=== PATIENT | male | born 1960 | race African-American/Black ===

== ENCOUNTER 2024-08-20 16:09 | Inpatient (IN) | payer OTHER, SELFPAY ==
--- NOTE | ~2024-08-20 | XR_ITS ---
EXAMINATION: XR CHEST CLINICAL INFORMATION: cough COMPARISON: None available. TECHNIQUE: Frontal view of the chest was obtained. FINDINGS: Rotated positioning. Overlying cardiac leads. Cardiomediastinal silhouette is within normal limits, allowing for positioning/technique. Mild bronchial wall thickening. No focal consolidation, effusion, edema or pneumothorax. XR/XR chest 1V IMPRESSION: Bronchial wall thickening can be seen with small airway disease. Electronically signed by: Corona Ruvalcaba MD 08/20/2024 06:20 PM [facility]
--- NOTE | ~2024-08-20 | CT_ITS ---
EXAMINATION: CT HEAD WITHOUT CONTRAST CLINICAL INFORMATION: Acute mental status change COMPARISON: 08/20/2024 TECHNIQUE: Contiguous axial imaging was performed from the skull base to vertex without intravenous administration of contrast. This CT examination was performed using dose optimization techniques as appropriate, variously including the following: *Automated exposure control *Adjustment of mA and/or kV according to patient size (this includes techniques or standardized protocols for targeted exams where dose is matched to indication/reason for exam; i.e. extremities or head) *Use of iterative reconstruction technique DLP: 772 mGy-cm FINDINGS: No acute intracranial abnormality. Age-appropriate cortical and central atrophy. Symmetrical white matter changes most consistent with terminal supply white matter chronic lacunar ischemic/infarct involving the hampton radiata and centrum semiovale. In addition, there is involvement of the striatocapsular regions consistent with involvement of the lenticular striate arteries as well. No extra axial collections. Small retention cyst right maxillary sinus. No calvarial lesion. CT/CT head/brain wo IV con IMPRESSION: No acute intracranial pathology. Electronically signed by: Shivam Null MD 08/23/2024 06:40 PM [facility]
--- NOTE | ~2024-08-20 | IR_ITS ---
GJ tube declog CLINICAL HISTORY: Feeding intolerance. GJ tube last replaced 2 weeks ago reportedly clogged FLUOROSCOPY TIME: 1 min PROCEDURE/FINDINGS: The procedure, risks, benefits, and alternatives were carefully explained to patient, and written informed consent was obtained. The patient was placed supine on the fluoroscopy table. A timeout was performed. A 0.035 Glidewire was negotiated through the existing GJ tube and used to declog the tube. We then flushed the jejunal port extensively with saline. Contrast injection demonstrates satisfactory declogging of the tube. We flushed again with saline. We elected to not replace the GJ tube as the tube was replaced 2 weeks ago and is now declogged. This is also taking into consideration that the GJ tube that we have in stock has a different type of connection and this may present a problem for tube feeds at facility IR/IR replace tube gastr jejun IMPRESSION: Successful declogging of GJ tube as above PLAN: -The tube may be used immediately. Electronically signed by: Marc Raman MD 08/28/2024 02:15 PM [facility]
--- NOTE | ~2024-08-20 | XR_ITS ---
EXAMINATION: XR CHEST CLINICAL INFORMATION: possible aspiration COMPARISON: August 23, 2024 TECHNIQUE: Frontal view of the chest was obtained. FINDINGS: The cardiomediastinal silhouette is stable. Minimal lingular atelectasis and/or scarring is again seen. There also appears to be minimal scarring or atelectasis at the right lung base. The lungs are otherwise clear. There are no significant pleural effusions. The bony structures and the soft tissues are unremarkable. XR/XR chest 1V IMPRESSION: Minimal lingular atelectasis and/or scarring and minimal scarring or atelectasis at the right lung base. No other significant abnormality seen. Electronically signed by: Yoni Ken MD 08/24/2024 06:08 AM [facility]
--- NOTE | ~2024-08-20 | XR_ITS ---
EXAMINATION: XR CHEST CLINICAL INFORMATION: suspect aspiration COMPARISON: 08/20/2024 TECHNIQUE: Frontal view of the chest was obtained. FINDINGS: No significant abnormality is noted involving the heart, lungs, mediastinum, bony thorax or soft tissues. XR/XR chest 1V IMPRESSION: Unremarkable examination. Electronically signed by: Cassidy Gallardo MD 08/23/2024 06:21 PM [facility]
--- NOTE | ~2024-08-20 | CT_ITS ---
EXAMINATION: CT HEAD WITHOUT CONTRAST CLINICAL INFORMATION: Headache. Dizziness. Patient on liquids. COMPARISON: None available. TECHNIQUE: Contiguous axial imaging was performed from the skull base to vertex without intravenous administration of contrast. This CT examination was performed using dose optimization techniques as appropriate, variously including the following: *Automated exposure control. *Adjustment of mA and/or kV according to patient size (this includes techniques or standardized protocols for targeted exams where dose is matched to indication/reason for exam; i.e. extremities or head). *Use of iterative reconstruction technique. DLP: 931 mGy-cm FINDINGS: Chronic lacunar infarcts of the right caudate body, right internal capsule, right thalamus, and left central jens. No additional loss of donaldson-white matter differentiation. No evidence of acute intracranial hemorrhage. Scattered and partially confluent hypoattenuation in the periventricular and deep white matter are consistent with moderate microangiopathy. Proportional prominence of the ventricles and sulcal spaces without evidence of obstructive hydrocephalus. No abnormal mass effect or midline shift. No extra-axial fluid collections. No acute soft tissue or osseous abnormalities. The mastoid air cells and visualized paranasal sinuses are clear. CT/CT head/brain wo IV con IMPRESSION: 1. No evidence of acute intracranial hemorrhage or edematous territorial infarction. 2. Chronic lacunar infarcts of the right caudate body, right internal capsule, right thalamus, and left central jens. Moderate underlying microangiopathy and generalized cerebral volume loss. Electronically signed by: Alexx Shaw DO 08/20/2024 06:59 PM [facility]
--- NOTE | ~2024-08-20 | CT_ITS ---
EXAMINATION: CT ABDOMEN AND PELVIS WITHOUT CONTRAST CLINICAL INFORMATION: Abdominal distention with nausea and vomiting COMPARISON: None available. TECHNIQUE: Multidetector volumetric imaging was performed from the superior aspect of the liver through the pubic symphysis. Sagittal and coronal reformatted images were obtained on the technologist's workstation. This CT examination was performed using dose optimization techniques as appropriate, variously including the following: *Automated exposure control *Adjustment of mA and/or kV according to patient size (this includes techniques or standardized protocols for targeted exams where dose is matched to indication/reason for exam; i.e. extremities or head) *Use of iterative reconstruction technique DLP: 897 mGy-cm FINDINGS: LUNG BASES: Bibasilar atelectasis is present with some tree-in-bud opacities at both lung bases. No pleural effusions or gross consolidation. LIVER, GALLBLADDER, AND BILIARY TREE: Extensive surgical clips are present around the kody hepatis. The gallbladder is not present. The liver is normal in size, shape, and attenuation. No focal hepatic lesion or biliary ductal dilatation is present. PANCREAS: Unremarkable. SPLEEN: Unremarkable. ADRENAL GLANDS: Unremarkable. KIDNEYS AND URETERS: The [place] kidneys are small. A transplant kidney is present in the right iliac fossa. BLADDER: There is lobular high density material layering in the bladder, possibly sludge or blood clot as it does not appear that contrast has been administered in the recent past. The possibility of a mass lesion needs to be considered as well GASTROINTESTINAL TRACT: A gastrojejunostomy tube is present in good position with its tip in the proximal jejunum. A large amount of stool is present in the rectum with thin cuts contrast in the left colon. There are colonic diverticula present without diverticulitis. The small and large bowel are otherwise unremarkable. The appendix is unremarkable. ABDOMINAL WALL: No significant hernia is appreciated. LYMPH NODES: No retroperitoneal lymphadenopathy. VASCULAR: Calcific atherosclerotic changes are present in the aorta and iliofemoral vessels. There is no evidence of an abdominal aortic aneurysm. PELVIC VISCERA: Unremarkable. OSSEOUS STRUCTURES: Degenerative changes are present in the spine most marked at L4-L5. CT/CT abdomen pelvis wo IV con IMPRESSION: 1. A cause for the patient's abdominal distention, nausea and vomiting has not been found. 2. Abnormal higher density in the posterior bladder. Correlate with urinalysis for possible hematuria. Cystoscopy may be necessary to exclude a mass 3. Incidental note made of bibasilar atelectasis with tree-in-bud opacities, cholecystectomy, gastrojejunostomy tube, transplant kidney, colonic diverticulosis and degenerative changes in the spine. Fleischner guidelines were followed. Electronically signed by: Julian Alvarez MD 08/20/2024 08:18 PM [facility]
--- NOTE | ~2024-08-20 | CT_ITS ---
EXAMINATION: CT ABDOMEN AND PELVIS WITHOUT AND WITH CONTRAST CLINICAL INFORMATION: Upper GI bleed COMPARISON: CT abdomen from 08/20/ TECHNIQUE: Multidetector volumetric imaging was performed of the abdomen and pelvis before and after the IV administration of 80 mL of Omnipaque 300 intravenous contrast. Sagittal and coronal reformatted images were obtained on the technologist's workstation. This CT examination was performed using dose optimization techniques as appropriate, variously including the following: *Automated exposure control *Adjustment of mA and/or kV according to patient size (this includes techniques or standardized protocols for targeted exams where dose is matched to indication/reason for exam; i.e. extremities or head) *Use of iterative reconstruction technique DLP: 2104 mGy-cm FINDINGS: LUNG BASES: Bibasilar atelectasis, left greater than. No pneumothorax. No lesion. LIVER, GALLBLADDER, AND BILIARY TREE: The liver is normal in size, shape, and attenuation. No focal hepatic lesion or biliary ductal dilatation is present. The gallbladder appears surgically absent. PANCREAS: Unremarkable surgical material in the region of the head of the pancreas SPLEEN: Unremarkable ADRENAL GLANDS: Unremarkable KIDNEYS AND URETERS: Bilateral cher-ae heights kidneys are atrophied. Right lower abdomen/pelvis renal transplant, stable. BLADDER: Redemonstrated high-density material within the dependent aspect of intraluminal urinary bladder, nonspecific. GASTROINTESTINAL TRACT: Percutaneous gastrojejunostomy tube redemonstrated. Residual oral contrast noted throughout the colon and in particular the rectum. Colonic diverticulosis without acute diverticulitis. The small and large bowel are unremarkable. The appendix is unremarkable. ABDOMINAL WALL: Fat filled bilateral inguinal hernias. LYMPH NODES: No enlarged lymph nodes or size criteria. VASCULAR: Evaluation for gastrointestinal hemorrhage is limited secondary to residual oral contrast no definite contrast extravasation identified. Patency of the celiac artery, superior mesenteric artery, and inferior mesenteric artery. Patency of the bilateral renal arteries. Patency of the bilateral common, external, and internal iliac arteries. Patency of the bilateral common femoral arteries. Abdominal aorta is nonaneurysmal. PELVIC VISCERA: Unremarkable OSSEOUS STRUCTURES: Multilevel degenerative changes of the thoracolumbar and lumbosacral spine. CT/CT gi bleed abd pel wo/w IVcon IMPRESSION: 1. Evaluation for gastrointestinal hemorrhage is limited secondary to residual oral contrast. No definite contrast extravasation identified. 2. Residual oral contrast noted throughout the colon and in particular the rectum. Colonic diverticulosis without acute diverticulitis. 3. Percutaneous gastrojejunostomy tube redemonstrated. 4. Bilateral cher-ae heights kidneys are atrophied. Right lower abdomen/pelvis renal transplant, stable. 5. Redemonstrated high-density material within the dependent aspect of intraluminal urinary bladder, nonspecific. Electronically signed by: Bhavesh De Leon MD 08/24/2024 10:40 AM [facility]
--- NOTE | ~2024-08-20 | XR_ITS ---
EXAMINATION: XR ABDOMEN KUB CLINICAL INDICATION: malfunctioning g/j tube COMPARISON: None available. TECHNIQUE: AP view of the abdomen. FINDINGS: Gravid was injected through the G J-tube. There is contrast visualized in the duodenum as well as the distal G-tube. Most of the contrast is in the stomach. Obstruction of the G-tube suspected. The GJ tube position is stable and unchanged XR/XR KUB IMPRESSION: The GJ tube is patent. Most of the contrast is visualized in the stomach and the duodenum and very little contrast in the jejunum. The distal GJ tube is patent however there is very little contrast in the jejunum questioning partial obstruction versus injection within the gastrostomy segment of the GJ tube. Correlate with person who injected contrast. Electronically signed by: Naun Laguerre MD 09/02/2024 02:30 PM [facility]
[2024-08-20 16:27] VITALS: BP 110/61; BP 124/74; PULSE 84; RESP 18; TEMP 36.8; O2SAT 98; O2SAT 99; BMI 25.1
--- NOTE | 2024-08-20 16:46 | ECG_ITS ---
Test Reason : CHEST PAIN Blood Pressure : / mmHG Vent. Rate : 075 BPM Atrial Rate : 075 BPM P-R Int : 120 ms QRS Dur : 118 ms QT Int : 418 ms P-R-T Axes : 058 -48 015 degrees QTc Int : 466 ms Sinus rhythm with Premature atrial complexes Incomplete right bundle branch block Left anterior fascicular block Minimal voltage criteria for LVH, may be normal variant ( R in aVL ) Abnormal ECG No previous ECGs available Referred By: Maya Cooper Electronically Signed By:ALEKSANDR BALLARD
--- NOTE | 2024-08-20 16:48 | ED_ITS ---
HPI - Dizziness General Chief Complaint: Dizziness Stated Complaint: SOB DIZZINESS Time Seen by Provider: 08/20/24 16:15 Source: patient, EMS and old records reviewed Mode of arrival: EMS Limitations: no limitations History of Present Illness ED Provider: SADIQ OLIVERA Narrative: 63 yo male with PMH Of CVA with L sided hemiparesis/dysphagia, PVD, GERD, pneumonia, DM, PAF on eliquis who comes in today with multiple complaits 1. dizziness for several months he states he just feels dizzy no matter what he is doing laying, moving, eating, drinking. He denies trauma and states today he came because it was worse than usual and he felt like he was going to pass out. 2. chest pain for a long time center of the chest without any associated change in symptoms states it is always there. 3. Today had n/v and his dizziness keeps making him short of breath. He denies anything stuck in his throat. I asked him if he felt like he was going to vomit again and he said maybe later. He denies abdominal pain /diarrhea. He has a very flat affect family states [facility] did not set up transport for his study today and he missed it. they want him placed somewhere else. recent admit to [facility] until 08/16/24 when family appealed DC to [facility] admit for COVID intractable n/v ?erosive esophagitis, gastritis, diabetic gastroparesis coffee ground emesis CAP pneumonia received 5 days of IV ceftriaxone and doxy has GI study today emptying study 08/20 diet and pills were encouraged to change vent G tube elicited complaint: dizziness Onset (ago): month(s) (several) Timing: gradual onset and constant Severity: moderate Description: sense of movement Context: other (it is there all the time) History of similar symptoms: Yes Exacerbating factors: movement/ambulation, change in body position, exertion, keeping eyes open, keeping eyes closed, standing, position/lying down and other Relieving factors: nothing Associated symptoms: nausea, vomiting, chest pain and shortness of breath Related Data Allergies Allergy/AdvReac Type Severity Reaction Status Date / Time desipramine Allergy Unknown Verified 08/20/24 16:32 Review of Systems 2 Review of Systems: Constitutional : No Fever, No Chills, No Fatigue ENT/Mouth : No sore throat, No Rhinorrhea Eyes: No Eye Pain, No Swelling, No Redness Cardiovascular : pos Chest Pain, pos SOB, No Dyspnea on Exertion Respiratory : No Cough, No Sputum Gastrointestinal :pos Nausea, pos Vomiting, No Diarrhea, No abdominal Pain Genitourinary : No Dysuria, No Urinary Frequency, No Hematuria, Musculoskeletal : No joint pain, No Myalgias, No Joint Swelling Skin : No Skin Lesions, No rash Neuro : No Weakness, No Numbness, pos Dizziness, no Headache Psych : No Anxiety/Panic, No Depression All other systems reviewed and are negative [facility] Past Medical History Source: old records reviewed Medical History Afib HTN (hypertension) GERD (gastroesophageal reflux disease) CVA (cerebral vascular accident) Diabetes Social History Social History Patient Tobacco Use Status: Tobacco use Unknown Smoked in Last 30 Days: No Use of substances other than those prescribed or required for medical reasons: No Advance Directives: No Advance Directives Information Provided: Yes Physical Exam 2 Vital Signs: Vital Signs: Last Vital Signs Temp 97.7 F 08/20/24 20:04 Pulse 76 08/20/24 20:04 Resp 14 08/20/24 20:04 BP 124/42 L 08/20/24 20:04 Pulse Ox 96 08/20/24 20:04 O2 Del Method Room Air 08/20/24 20:04 BMI result Body Mass Index 25.1 Appearance: Alert. Oriented X3. No acute distress. Eyes: Pupils equal, round and reactive to light. ENT: Pharynx normal. Neck: Normal inspection. Neck supple. CVS: Normal heart rate and rhythm. Pulses normal. Respiratory: No respiratory distress. Breath sounds bases diminished Abdomen: Soft and nontender. states he has no pain to palpation Skin: Skin warm and dry. Normal skin color. Normal skin turgor. Extremities: No lower extremity edema. shiny skin on both anterior legs no signs of infection Neuro: Oriented X 3. L sided hemiparesis keeps clearing his throat but no diff swallowing and no change in voice, no stridor Course Course Course Narrative: residual PCR from recent COVID - asymptomatic Medications Administered Discontinued Medications Generic Name Dose Route Start Last Admin Trade Name Freq PRN Reason Stop Dose Admin Ondansetron HCl 4 mg 08/20/24 16:43 08/20/24 18:19 Ondansetron Hcl 4 Mg/2 Ml Vial IVPUSH 08/20/24 16:44 4 mg ONCE ONE Administration Medical Decision Making Medical Decision Making [facility] Narrative: 63 yo male with PMH Of CVA with L sided hemiparesis/dysphagia, PVD, GERD, pneumonia, DM, PAF on eliquis who comes in with prolonged symptoms of dizziness, chest pain, today coughed or vomited but does not have abdominal pain at this time basic labs, EKG, CXR, CT head for mass/ICH, CT abdomen for bowel obstruction. He has no new focal deficits. He denies abdominal pain. He has chronic chest pain that he relates is there all the time seems unusual for ACS and VTE given his DOAC use but also the constant pain x several months. Will get troponin and CXR. Differential Diagnosis Differential Diagnoses: The differential diagnosis associated with the presentation includes post prior CVA, vertigio, meniere's, labyrinthitis, anemia, dehydration, atypical chest pain given months, GERD, doubt VTE uses eliquis, gastritis, SBO Admission/Observation Consideration of admission/observation: Escalation of care including admission/observation considered labs at recent baseline CT head CT abdomen his complaints seem termite treater helper and family wants other placement from [facility] physician observation started at 825pm pending placement Consult Healthcare Provider Management of the patient was discussed with: Social Human Services Assistants Lab Data [facility] Lab Attestation statement: I reviewed the patient's lab results. hemoglobin 9.6 at [facility] 08/20/24 18:15 08/20/24 18:14 Labs: Lab Results 08/20/24 08/20/24 Range/Units 18:14 18:15 WBC 6.4 (4.8-10.8) X10*3/uL RBC 3.86 L (4.60-5.80) X10*6/uL Hgb 9.2 L (14.0-18.0) g/dl Hct 29.8 L (42.0-52.0) % MCV 77.2 L (80.0-98.0) fL MCH 23.8 L (27.0-33.0) pg MCHC 30.9 L (31.0-36.0) g/dl RDW 15.8 (11.0-16.0) % Plt Count 292 (160-400) X10*3/uL MPV 10.4 (9.4-12.4) fL Immature Gran % (Auto) 0.2 (0.0-0.4) % Neut % (Auto) 47.4 (45-73) % Lymph % (Auto) 36.9 (20-40) % Cuming % (Auto) 8.6 (2-11) % Eos % (Auto) 6.4 H (0-4) % Baso % (Auto) 0.5 (0-2) % Lymph # (Auto) 2.4 (1.2-4.9) X10*3/uL Cuming # (Auto) 0.6 (0.1-1.2) X10*3/uL Eos # (Auto) 0.4 (0.0-0.4) X10*3/uL Baso # (Auto) 0.0 (0.0-0.2) X10*3/uL Abs Immat Gran (auto) 0.01 (0.00-0.03) X10*3/uL Absolute Neuts (auto) 3.0 (2.0-8.3) x10*3/uL Absolute Nucleated RBC 0.000 (0.0-0.012) X10*3/uL Nucleated RBC % (auto) 0.0 (0.0-0.2) /100WBC PT 14.9 H (10.9-12.4) SEC INR 1.3 H (0.9-1.1) Sodium 133 L (135-145) mmol/L Potassium 4.3 (3.3-5.1) mmol/L Chloride 102 (96-108) mmol/L Carbon Dioxide 28 (22-29) mmol/L Anion Gap 7 L (12-20) BUN 11 (9-16) mg/dL Creatinine 1.00 (0.5-1.4) mg/dL Estim Creat Clear Calc 79.4 Estimated GFR > 60 Random Glucose 237 H (60-115) mg/dL Calcium 9.1 (8.4-10.2) mg/dL Magnesium 1.6 (1.6-2.6) mg/dL Total Bilirubin 0.3 (0.0-1.0) mg/dL Direct Bilirubin 0.2 (0.0-0.5) mg/dL AST 121 H (5-37) U/L ALT 100 H (0-40) U/L Alkaline Phosphatase 188 H (39-117) U/L Troponin I High Sens 3.9 (<3.5-35.0) ng/L C-Reactive Protein 0.31 (< or = 0.50) mg/dL B-Natriuretic Peptide 47 (<100) pg/mL Total Protein 8.1 H (6.5-8.0) g/dL Albumin 3.2 L (3.5-5.0) g/dL Lipase 28 (8-78) U/L Influenza Type A (PCR) NEGATIVE (Negative) Influenza Type B (PCR) NEGATIVE (Negative) RSV RNA Qual (PCR) NEGATIVE (Negative) SARS-CoV-2 RNA (RT-PCR) POSITIVE A (Negative) Independent Interpretation I performed an independent interpretation of an: EKG, Plain X-Ray (no acute cause) and CT Scan (no acute cause) Interpretation: Rate: 75 Rhythm: NSR Jbphh: left Normal P waves. Normal AVEL. incomplete RBBB ST T wave : no LUC, inverted t waves V1 qTC: 466 prior studies: no prior The study has been interpreted contemporaneously by me. . Radiology Impression Discussion of test interpretation with radiology: I have reviewed the radiologist's reading. Independent Historian Clinical information obtained from an independent historian. History obtained from or confirmed by: EMS External Record Review External record reviewed: Outpatient record Discharge Plan Discharge Clinical Impression: Dizziness, Nausea Patient Disposition: Still a Patient Print Language: Kiswahili
[2024-08-20] MEDS: ondansetron HCL 4 MG/2 ML VIAL IVPUSH (18:19)
[2024-08-20 18:23] LABS: MANUAL DIFF FLAG NO
[2024-08-20 18:26] LABS: Basophils Percent Auto 0.5 % (0-2); Eosinophils Absolute Auto 0.4 X10*3/uL (0.0-0.4); Eosinophils Percent Auto 6.4 % (0-4); Hematocrit 29.8 % (42.0-52.0); Hemoglobin 9.2 g/dl (14.0-18.0); Imm Gran Abs Auto 0.01 X10*3/uL (0.00-0.03); Imm Gran Pct Auto 0.2 % (0.0-0.4); Lymphocytes Absolute Auto 2.4 X10*3/uL (1.2-4.9); Lymphocytes Percent Auto 36.9 % (20-40); Mean Corpuscular HGB Conc 30.9 g/dl (31.0-36.0); Mean Corpuscular Hemoglobin 23.8 pg (27.0-33.0); Mean Corpuscular Volume 77.2 fL (80.0-98.0); Mean Platelet Volume 10.4 fL (9.4-12.4); Monocytes Absolute Auto 0.6 X10*3/uL (0.1-1.2); Monocytes Percent Auto 8.6 % (2-11); Neutrophils Percent Auto 47.4 % (45-73); Platelet Count 292 X10*3/uL (160-400); Red Blood Count 3.86 X10*6/uL (4.60-5.80); Red Cell Distribution Width 15.8 % (11.0-16.0); White Blood Count 6.4 X10*3/uL (4.8-10.8)
[2024-08-20 18:27] VITALS: BP 122/62; PULSE 81; RESP 16; TEMP 36.4; O2SAT 98
[2024-08-20 18:34] LABS: INTERNATIONAL NORM RATIO 1.3 (0.9-1.1); Prothrombin Time 14.9 SEC (10.9-12.4)
[2024-08-20 18:44] LABS: Alanine Aminotransferase 100 U/L (0-40); Albumin Level 3.2 g/dL (3.5-5.0); Alkaline Phosphatase 188 U/L (39-117); Anion Gap 7 (12-20); Aspartate Amino Transferase 121 U/L (5-37); Bilirubin Direct 0.2 mg/dL (0.0-0.5); Bilirubin Total 0.3 mg/dL (0.0-1.0); Blood Urea Nitrogen 11 mg/dL (9-16); C Reactive Protein 0.31 mg/dL (< or = 0.50); Calcium 9.1 mg/dL (8.4-10.2); Carbon Dioxide 28 mmol/L (22-29); Chloride 102 mmol/L (96-108); Creatinine Clr Calc Pharmacy 79.4; Estimated Glomerular Filt Rate > 60; Glucose Random 237 mg/dL (60-115); Lipase 28 U/L (8-78); Magnesium 1.6 mg/dL (1.6-2.6); Potassium 4.3 mmol/L (3.3-5.1); Sodium 133 mmol/L (135-145); Total Protein 8.1 g/dL (6.5-8.0)
[2024-08-20 18:50] LABS: B Type Natriuretic Peptide 47 pg/mL (<100)
[2024-08-20 18:52] LABS: Troponin-I High Sensitivity 3.9 ng/L (<3.5-35.0)
[2024-08-20 19:01] LABS: Influenza A PCR NEGATIVE (Negative); Influenza B PCR NEGATIVE (Negative); Resp Syncy Virus RNA Qual PCR NEGATIVE (Negative); SARS COV2 PCR INHOUSE POSITIVE (Negative)
--- NOTE | 2024-08-20 19:57 | PC.NURSE ---
pt alert and orientedx4, though is not a great historian of his care. He had a stroke in April (info provided by his sister) and has left sided paralysis. He has a g tube. H says that for several months now he has ongoing nausea, vomiting, chest pain and dizziness and nothing has helped. in ED IV established via US (difficult stick). IV zofran given. Pt has multiple tiny scratches and scabs on his back, shoulders, legs and arms. He says they are from scratching.
[2024-08-20 20:04] VITALS: BP 124/42; PULSE 76; RESP 14; TEMP 36.5; O2SAT 96
--- NOTE | 2024-08-20 20:48 | PC.NURSE ---
pt failed nursing swallow due to inability to control secretions - he drools rather than swallowing saliva. MD notified. Viscous lidocaine OK to give per MD. Pt states that at [facility] he eats and drinks during the day and uses his G tube at night
[2024-08-20] MEDS: Lidocaine HCl Viscous 2 % 15 ML SOLUTION MUCOUS MEM (20:56)
[2024-08-20 22:14] LABS: Appearance Urine Turbid; Color Urine Yellow; Glucose Urine UA 100 mg/dL (Negative); Leukocyte Esterase Urine Negative (Negative); Nitrite Urine Negative (Negative); PH 8.5 (5.0-9.0); Urine Blood Negative (Negative); Urine Ketones Negative (Negative); Urine Protein Trace mg/dL (Neg-Trace)
[2024-08-20 22:43] VITALS: BP 116/43; PULSE 70; RESP 20; TEMP 36.6; O2SAT 99
--- NOTE | 2024-08-20 23:02 | MHC.CM.ED ---
CM received consult from Dr. Cooper. Pt is a poor historian. Could not tell me where he lived before he went to [facility]. Per Dr. Cooper, patient was at [facility], C/O SOB and dizziness. He was sent to [facility] as that is where he came from. On route, pt requested to come to [facility]. Pt has not been at [facility]. Record review completed from [facility] and [facility]. Per Dr. Cooper and patient, patient and family do not want to return to [facility], as they missed his appointment at [facility] today for a gastric emptying study. They are upset with his care. CM Had contact for patient's sister, Kellee Hurst ([phone]). Sister was at bedside, but left before CM could meet with her. Called and left message for return call at 0. Upon record review, HCP/daughter Shima Chase [phone]. Will need to call in the am due to lateness of hour. Pt has [facility] insurance. PT is pending. Pt was receiving PT and speech therapy at facility. PT consult is pending. Pt has a G-tube. Chronic dysphagia. Hx kidney and liver transplant, CVA with L sided hemiparesis, PVD, GERD, PNA, DMPositive Covid on 08/08, N&V, gastritis and esophagitis.. Patient is on a pureed diet, with thick nectar.1:1 feedings, elevate HOB 45 degrees.. Pt is a full Code according to record. Pt has a G-tube with feeding nightly 6p-6a -Nepro 1.8 with Carbsteady at 25 cc/hr according to med kardex from facility. CM plan of care: Call sister and HCP in the morning for additional information. PT pending Unsure if [placement is STR or LTC, Need clarification. Will hold on referrals until CM can clarify if placement is STR or LTC May gain information from [facility] in the morning.
[2024-08-21] VITALS (8 sets, daily range): BP systolic 105–151; BP diastolic 56–73; PULSE 68–96; RESP 12–20; TEMP 36.3–37.2; O2SAT 96–98
--- NOTE | 2024-08-21 01:12 | MHC.EDTECH ---
Patient incontinent of urine. Complete bed change and repositioned to the side
--- NOTE | 2024-08-21 07:03 | PC.NURSE ---
per notes from case management pt takes nectar thick liquids and pureed foods at baseline.
--- NOTE | 2024-08-21 08:02 | PC.NURSE ---
patient resting quietly in bed, this RN and OT repositioned patient in bed, patient sitting up eating breakfast. patient is awake and alert, oriented. non ambulatory at baseline. patient VSS, resp even and unlabored. skin dry and intact. patient linens clean and dry. patient has [place] cath for urinary incontinence.
[2024-08-21 09:06] LABS: Glucose, Whole Blood 169 mg/dL (60-115)
--- NOTE | 2024-08-21 10:34 | PHA.MEDREC ---
Pharmacy Consult ? Medication Reconciliation Pharmacy has completed the medication reconciliation. UTILIZED LIST FROM [facility]
[2024-08-21 11:13] LABS: Glucose, Whole Blood 207 mg/dL (60-115)
--- NOTE | 2024-08-21 13:00 | MHC.CM.ED ---
Addendum entered by Linda Rojas 08/21/24 14:11: Kellee requested referral be made to [facility]. Referral made via [facility]. Addendum entered by Linda Rojas 08/21/24 13:35: [facility] is not able to offer a bed because patient appears to be LTC. They do not have any LTC beds available. Kellee made aware and adamant that patient will return home. Kellee agreeable to referral being broadcasted in [facility]. Original Note: Patient remains in ER overflow. Spoke with patient's sister, Kellee, via telephone at [phone]. Per Kellee, [facility] is [facility] choice. Referral made to [facility] via [facility]. Continue to monitor for d/c needs.
--- NOTE | 2024-08-21 16:16 | MHC.CM.ED ---
[facility] is not able to offer a bed. [facility] is able to offer a bed. [facility] is still reviewing. Kellee made aware. Kellee requesting to tour [facility]. [facility] requested to reach out to Kellee. Continue to monitor for d/c needs.
[2024-08-21 16:50] LABS: Glucose, Whole Blood 199 mg/dL (60-115)
--- NOTE | 2024-08-21 18:30 | MHC.CM.ED ---
CM spoke with patient. He is aware that is sister is touring [facility], who have offered a bed. [facility] is reviewing. Pt asks CM if he will get better at rehab, as his has L sided hemiparesis. CM explained that he had his stroke in April, and that sometimes after stroke, patient have weakness that remains. Hopefully physical therapy will help him to get stronger. CM spoke with patient about his medical concerns and that he may need more help to be cared for. Pt was feeding himself his pureed tray. CM will follow for discharge planning.
[2024-08-21 21:02] LABS: Glucose, Whole Blood 203 mg/dL (60-115)
[2024-08-21] MEDS: Tacrolimus 0.5 MG CAPSULE PO (21:11)
[2024-08-21] MEDS: diphenhydrAMINE HCL 25 MG CAPSULE PO (21:11)
[2024-08-21] MEDS: Apixaban 5 MG TABLET PO (21:11)
[2024-08-21] MEDS: carvediloL 6.25 MG TABLET PO (21:11)
[2024-08-21] MEDS: Insulin Lispro 100 UNIT/ML 3 ML VIAL SUBCUT (21:12)
[2024-08-21] MEDS: Gabapentin 100 MG CAPSULE PO (21:12)
--- NOTE | 2024-08-21 21:52 | PC.NURSE ---
Pt cleaned and changed of stool. Adjusted in bed for comfort.
[2024-08-22] MEDS: Metoclopramide HCl 10 MG TABLET PO (03:15)
[2024-08-22 05:54] VITALS: BP 140/62; PULSE 97; RESP 16; TEMP 37.1; O2SAT 98
[2024-08-22] MEDS: Omeprazole 20 MG CAPSULE.DR PO (06:19)
--- NOTE | 2024-08-22 06:29 | MHC.EDTECH ---
Patient awake all night long ,vitals taken ,Patient was incontinent of small amount of stool ,carte given and bedding change ,Patient drank 360 ml fluids 750 ml empty from [place] catheter .
[2024-08-22 07:41] LABS: Glucose, Whole Blood 171 mg/dL (60-115)
[2024-08-22] MEDS: Gabapentin 100 MG CAPSULE PO ×2 (08:46→21:26)
[2024-08-22] MEDS: predniSONE 5 MG TABLET PO (08:46)
[2024-08-22] MEDS: Apixaban 5 MG TABLET PO ×2 (08:46→21:27)
[2024-08-22] MEDS: Insulin Glargine,Hum.rec.anlog 100 UNIT/ML 10 ML VIAL 10 UNIT SUBCUT (08:47)
[2024-08-22] MEDS: Atorvastatin Calcium 80 MG TABLET PO (08:47)
[2024-08-22] MEDS: Finasteride 5 MG TABLET PO (08:47)
[2024-08-22] MEDS: Aspirin Enteric Coated 81 MG TABLET.DR PO (08:47)
[2024-08-22] MEDS: Doxazosin Mesylate 2 MG TABLET PO (08:47)
[2024-08-22] MEDS: polyethylene glycoL 3350 17 GM POWD.PACK PO (08:48)
[2024-08-22] MEDS: Insulin Lispro 100 UNIT/ML 3 ML VIAL SUBCUT ×4 (08:48→21:40)
[2024-08-22] MEDS: Multivitamin TABLET 1 TAB PO (08:48)
[2024-08-22] MEDS: carvediloL 6.25 MG TABLET PO ×2 (08:48→21:26)
[2024-08-22] MEDS: Tacrolimus 0.5 MG CAPSULE PO ×2 (08:52→21:26)
--- NOTE | 2024-08-22 10:07 | MHC.CM.ED ---
Patient remains in ER overflow. Kellee will tour [facility] today. Continue to monitor for d/c needs.
--- NOTE | 2024-08-22 11:32 | MHC.CM.ED ---
Addendum entered by Linda Rojas 08/22/24 16:22: Insurance auth had been obtained by [facility]. However patient is on Nepro tube feeding. They will not be able to get this TF until at least Sunday. D/c cancelled. Transportation d/c'd. Patient, sister Kellee, Nasreen MOONEY and Rosaura MCCLELLAND aware. Original Note: Received voicemail from patient's sister, Kellee. Kellee wants to accept bed at [facility]. Wilder aware and is in the process of obtaining insurance auth. Continue to monitor for d/c needs.
[2024-08-22 14:39] VITALS: BP 132/75; PULSE 95; RESP 14; TEMP 37.2; O2SAT 96
--- NOTE | 2024-08-22 18:03 | MHC.EDTECH ---
Assisted patient with personal hygiene multiple times due to patient vomiting had to clean patient and change his gown and linen multiple times.
[2024-08-22 19:25] VITALS: BP 167/76; PULSE 99; RESP 18; TEMP 37.1; O2SAT 96
[2024-08-22 21:26] VITALS: BP 164/70; PULSE 96
--- NOTE | 2024-08-22 22:00 | PC.NURSE ---
Addendum entered by Guillermo Kilgore RN 08/23/24 06:25: Patient continued to vomit overnight brown liquid on the dark side but doesnt appear to be bloody or coffee ground. Patient using yankaur but occasionally yankaur found lying beside him and vomit on his brandyn and sheets. Question aspiration. Patient in semi/high fowlers Addendum entered by Guillermo Kilgore RN 08/22/24 23:48: RN stopped tube feeds at 2348. Patients lungs sounds rhonchorous, seems to be vomiting more/ possibly aspirating. Cannot check residuals/ do not have appropriate supplies in overflow currently, attempting to obtain supplies. Original Note: Patient alert/able to make his needs met. Remains on contact precautions for COVID. Left sided hemiparesis, total care. His skin is moist and intact with superficial scratch robledo and patient is scratching his skin frequently. Turned and repositioned for skin care and comfort. Linens changed. HTN but no other cardiovascular issues. Lungs are clear/dim, patient has chronic GI issues frequently wretching and spitting up phlegm into a vomit bag. He takes pills whole in applesauce. Nocturnal Nepro tube feeds through GJ tube at 25ml/hr. [place] catheter for comfort. No bowel movement tonight. No acute events. Will continue to monitor.
[2024-08-23] VITALS (8 sets, daily range): BP systolic 132–150; BP diastolic 67–100; PULSE 100–114; RESP 13–22; TEMP 36.8–37.4; O2SAT 91–98
[2024-08-23] MEDS: Gabapentin 100 MG CAPSULE PO ×2 (12:22→22:37)
[2024-08-23] MEDS: polyethylene glycoL 3350 17 GM POWD.PACK PO (12:22)
[2024-08-23] MEDS: carvediloL 6.25 MG TABLET PO ×2 (12:22→22:37)
[2024-08-23] MEDS: Atorvastatin Calcium 80 MG TABLET PO (12:23)
[2024-08-23] MEDS: Finasteride 5 MG TABLET PO (12:23)
[2024-08-23] MEDS: Insulin Lispro 100 UNIT/ML 3 ML VIAL SUBCUT ×2 (12:26→19:14)
[2024-08-23] MEDS: Insulin Glargine,Hum.rec.anlog 100 UNIT/ML 10 ML VIAL 10 UNIT SUBCUT (12:30)
[2024-08-23] MEDS: diphenhydrAMINE HCL 25 MG CAPSULE PO (12:30)
[2024-08-23] MEDS: Apixaban 5 MG TABLET PO ×2 (14:16→22:37)
[2024-08-23] MEDS: predniSONE 5 MG TABLET PO (14:17)
[2024-08-23] MEDS: Tacrolimus 0.5 MG CAPSULE PO ×2 (14:17→22:37)
[2024-08-23] MEDS: Doxazosin Mesylate 2 MG TABLET PO (14:17)
[2024-08-23] MEDS: 0.9 % Sodium Chloride 500 ML 50 ML IV (18:30)
[2024-08-23 19:01] LABS: Basophils Absolute Auto 0.1 X10*3/uL (0.0-0.2); Eosinophils Absolute Auto 0.5 X10*3/uL (0.0-0.4); Eosinophils Percent Auto 8.2 % (0-4); Hematocrit 38.2 % (42.0-52.0); Hemoglobin 11.9 g/dl (14.0-18.0); Imm Gran Abs Auto 0.01 X10*3/uL (0.00-0.03); Imm Gran Pct Auto 0.2 % (0.0-0.4); Lymphocytes Absolute Auto 2.4 X10*3/uL (1.2-4.9); Lymphocytes Percent Auto 39.2 % (20-40); MANUAL DIFF FLAG NO; Mean Corpuscular HGB Conc 31.2 g/dl (31.0-36.0); Mean Corpuscular Hemoglobin 23.4 pg (27.0-33.0); Mean Corpuscular Volume 75.2 fL (80.0-98.0); Mean Platelet Volume 10.9 fL (9.4-12.4); Monocytes Absolute Auto 0.8 X10*3/uL (0.1-1.2); Monocytes Percent Auto 13.2 % (2-11); Neutrophils Absolute Auto 2.4 x10*3/uL (2.0-8.3); Neutrophils Percent Auto 38.2 % (45-73); Platelet Count 339 X10*3/uL (160-400); Red Blood Count 5.08 X10*6/uL (4.60-5.80); Red Cell Distribution Width 15.9 % (11.0-16.0); White Blood Count 6.2 X10*3/uL (4.8-10.8)
[2024-08-23 19:15] LABS: Anion Gap 16 (12-20); Blood Urea Nitrogen 14 mg/dL (9-16); Calcium 9.4 mg/dL (8.4-10.2); Carbon Dioxide 26 mmol/L (22-29); Chloride 103 mmol/L (96-108); Creatinine Clr Calc Pharmacy 92.4; Estimated Glomerular Filt Rate > 60; Glucose Random 192 mg/dL (60-115); Potassium 4.7 mmol/L (3.3-5.1); Sodium 140 mmol/L (135-145)
[2024-08-23 19:28] LABS: Appearance Urine Cloudy; Color Urine Yellow; Glucose Urine UA Negative (Negative); Leukocyte Esterase Urine Negative (Negative); Nitrite Urine Negative (Negative); Specific Gravity - Urine 1.025 (1.005-1.025); UMIC TRIGGER UACC YES; Urine Blood Negative (Negative); Urine Ketones Trace mg/dL (Negative); Urine Protein 30 (1+) mg/dL (Neg-Trace)
[2024-08-23 19:37] LABS: Bacteria Urine None Seen (None Seen); Hyaline Casts Urine 0-2 /LPF (0-2); RBC Urine 0-2 /HPF (0-2); Squamous Epithelial Cell Urine 0-2 /HPF (0-2); WBC Urine 0-5 /HPF (0-5)
--- NOTE | 2024-08-23 19:57 | PC.NURSE ---
This RN assumed care of the patient. Received report from Rachael MOONEY. Called med/surg floor to request Nepro feed tubing, which is not in Overflow. Med/Surg to bring tubing to Overflow. Upon receipt, I will connect the tube feed to the patient for administration.
--- NOTE | 2024-08-23 19:59 | PC.NURSE ---
went in and repositioned patient at approx 0415. care provided and pt seemed to tolerate well. Once repositioned and boosted pt seemed to stare off into space and be less alert than previously noted. He roused to persistant voice but seemed off . MD and charge entry called for assist. POC checked and 165, vitals checked and WNL. labs drawn, pt straight cathed with agreement from MD for urine spec., pt had chest xray and head ct with results pending for all. daughter came to visit towards end of episode and made aware. MD also made aware of scattered open areas due to pt's frequent scratching. He had benadryl x1 with some success.
--- NOTE | 2024-08-23 22:37 | PC.NURSE ---
Nepro tube feed infusing at 25 ml/hour via J-tube port, as confirmed by Britany MCCLELLAND. Sterile water in bag. IV access to right upper arm. NS infusing to IV at 50 ml/hour as ordered. Medications given as ordered. Pt has yankauer suction catheter in hand and intermittently self-suctions his mouth. Aspiration risk due to nausea/vomiting. Tea-Brown colored liquid noted to suction cannister from yankauer. No acute distress noted. Calm/cooperative. Care ongoing by this RN. Isolation precautions remain in place due to COVID-19 diagnosis.
[2024-08-24] VITALS (8 sets, daily range): BP systolic 105–160; BP diastolic 60–90; PULSE 64–100; RESP 14–20; TEMP 36.4–37.3; O2SAT 95–100; BMI 22.1; BMI 12.9; BMI 21.9
--- NOTE | 2024-08-24 02:15 | PC.NURSE ---
IV access removed by Dr. Hwang from right bicep. Normal saline infusion of 50 ml/hour discontinued by provider. Patient is able to drink thickened liquids with supervision for aspiration risk. Nepro infusing via J-tube at 25 ml/hour as ordered. Patient drank 2 cups of water. Some coughing noted, but patient was able to keep fluids down. Yankeaur suction remains at bedside for patient's use. [place] catheter remains in place. Patient is able to make needs known. Calm/cooperative.
--- NOTE | 2024-08-24 03:21 | MHC.EDTECH ---
pt called for help, pt found with larger amount of emesis than normal. Vital signs taken. MD Hwang notified. Sample of emesis collected and sent to lab per MD order.
[2024-08-24 03:32] LABS: GASOB Int Neg Ctl Valid YES; GASOB Int Pos Ctl Valid YES; Occult Blood Gastric POSITIVE (NEG)
[2024-08-24 03:33] LABS: GASOB Lot 20632 10
--- NOTE | 2024-08-24 03:49 | PC.NURSE ---
At 3am, patient yelled out help! for this RN. This RN & carton waxing machine operator Eliot entered the room to find the patient coughing, and large amount of brown, thick fluid on himself, his hospital gown, and blanket. Tube feed infusion stopped. Dr. Hwang notified. Specimen collected and sent to lab for analysis. Jasmin Tian (nursing structural mill supervisor) happened to be entering Overflow department at this time and was also notified of this incident. Lungs diminished, but sound comparable to previous assessments at this time. Atif remains within reach with wall suction active. Dr. Hwang also ordered Compazine 25mg suppository to be given upon receipt from another hospital unit. This medication is not available in ED or Overflow Pyxis machines. Linens and gown changed. Care ongoing by this RN.
--- NOTE | 2024-08-24 04:02 | PC.NURSE ---
Gastric Occult blood sample positive. Dr. Hwang and propellant charge zone assembler (Nadya Padilla) notified via [employer]. Awaiting response regarding any plan of care changes.
--- NOTE | 2024-08-24 04:07 | PC.NURSE ---
Per Dr. Hwang, plan to insert new IV access, medicate, and plan to admit. Dr. Hwang stated that she contacted ICU to establish new IV access.
[2024-08-24] MEDS: Prochlorperazine 25 MG SUPP.RECT PR (04:15)
--- NOTE | 2024-08-24 04:25 | PC.NURSE ---
Addendum entered by Bree Arana 08/24/24 06:25: Late entry by this RN: Suad (FORENSIC LOCKSMITH) had 3 failed IV access attempts with ultrasound use. Anne Farmer also had [address] Hwang notified at 04:46 AM. Original Note: FORENSIC LOCKSMITH at bedside with ultrasound, attempting to obtain IV access. Plan to admit the patient to med/surg.
--- NOTE | 2024-08-24 05:59 | PC.NURSE ---
Right EJ placed by Dr. Hwang at 5:40am, flushed with blood return, and secured with tegaderm. Upon returning with medications, while attempting to administer medications, IV access is no longer functional. IV will not flush, no blood return. Attempted to reposition, inspected, and IV is now infiltrating with flush. Dr. Hwang notified. Infiltration confirmed by 2nd RN Anne Farmer. logistics supply officer also aware. Unable to administer IV medications at this time. Patient is now sleeping, no acute distress noted. Awaiting new provider with another IV insertion attempt.
--- NOTE | 2024-08-24 06:40 | PC.NURSE ---
Suad MOONEY returned to attempt another IV stick, but was unsuccessful. Dr. Hwang aware. Plan for Felix Orellana RN to come to Overflow to attempt IV access upon arrival to shift (7am).
[2024-08-24 07:50] LABS: MANUAL DIFF FLAG NO
[2024-08-24 07:52] LABS: Basophils Percent Auto 0.5 % (0-2); Eosinophils Absolute Auto 0.5 X10*3/uL (0.0-0.4); Eosinophils Percent Auto 6.8 % (0-4); Hematocrit 36.4 % (42.0-52.0); Hemoglobin 11.3 g/dl (14.0-18.0); Imm Gran Abs Auto 0.02 X10*3/uL (0.00-0.03); Imm Gran Pct Auto 0.3 % (0.0-0.4); Lymphocytes Absolute Auto 3.4 X10*3/uL (1.2-4.9); Lymphocytes Percent Auto 43.7 % (20-40); Mean Corpuscular Hemoglobin 23.8 pg (27.0-33.0); Mean Corpuscular Volume 76.6 fL (80.0-98.0); Mean Platelet Volume 11.1 fL (9.4-12.4); Monocytes Absolute Auto 0.9 X10*3/uL (0.1-1.2); Monocytes Percent Auto 11.9 % (2-11); Neutrophils Absolute Auto 2.8 x10*3/uL (2.0-8.3); Neutrophils Percent Auto 36.8 % (45-73); Platelet Count 379 X10*3/uL (160-400); Red Blood Count 4.75 X10*6/uL (4.60-5.80); Red Cell Distribution Width 16.1 % (11.0-16.0); White Blood Count 7.7 X10*3/uL (4.8-10.8)
[2024-08-24 07:58] LABS: INTERNATIONAL NORM RATIO 1.4 (0.9-1.1); Prothrombin Time 16.4 SEC (10.9-12.4)
--- NOTE | 2024-08-24 07:59 | PC.NURSE ---
pt arrived to ED21 from overflow unit - u/s guided IV placed by Lebron MOONEY in R upper arm.
[2024-08-24 08:00] LABS: Partial Thromboplastin Time 24.2 SEC (26.0-36.8)
[2024-08-24 08:14] LABS: Alanine Aminotransferase 75 U/L (0-40); Albumin Level 3.3 g/dL (3.5-5.0); Alkaline Phosphatase 205 U/L (39-117); Anion Gap 15 (12-20); Aspartate Amino Transferase 68 U/L (5-37); Bilirubin Direct 0.2 mg/dL (0.0-0.5); Blood Urea Nitrogen 18 mg/dL (9-16); Calcium 9.3 mg/dL (8.4-10.2); Carbon Dioxide 28 mmol/L (22-29); Chloride 101 mmol/L (96-108); Creatinine Clr Calc Pharmacy 95.7; Estimated Glomerular Filt Rate > 60; Glucose Random 184 mg/dL (60-115); Lipase 9 U/L (8-78); Magnesium 1.7 mg/dL (1.6-2.6); Potassium 3.5 mmol/L (3.3-5.1); Sodium 140 mmol/L (135-145); Total Protein 8.8 g/dL (6.5-8.0)
[2024-08-24 08:18] LABS: Bilirubin Total 0.5 mg/dL (0.0-1.0)
[2024-08-24] MEDS: iohexoL 350 MG/ML 100 ML INFUS..BTL IV (08:27)
[2024-08-24 08:50] LABS: Glucose, Whole Blood 189 mg/dL (60-115)
[2024-08-24] MEDS: Pantoprazole Sodium 40 MG/10 ML VIAL 80 MG IVPUSH (09:12)
[2024-08-24] MEDS: cefTRIAXone sodium 1 GM VIAL IVPUSH (09:12)
--- NOTE | 2024-08-24 09:12 | PC.NURSE ---
per MD Welch, given pts vomiting episode this AM, plan to keep pt NPO at this time. pt also ok to get Rocephin at this time, no blood cultures to be drawn per .
--- NOTE | 2024-08-24 09:25 | PC.NURSE ---
linens changes, repositioned with pillows on bony prominences. pt in upright, aspiration precautions, positioning. lotion applied to dry, itchy skin. IV patent in R upper bicep an d medicated per NOV. pt requesting water. educated on NPO status given vomiting episode last night and question of aspiration. G. tube feeding paused at this time. pt pending admission.
--- NOTE | 2024-08-24 09:29 | MHC.CM.ED ---
Received notification that patient will be admitted to the hospital. Continue to monitor for d/c needs.
--- NOTE | 2024-08-24 11:46 | P.HPHOSP_ITS ---
History of Present Illness Date of Service: 08/24/24 Attending physician on admission: Mark Urbina Chief Complaint: Coffee ground emesis Pt is a 63-year-old male who resides at a SNF with a PMH significant for?CVA with residual left-sided hemiparesis, dysphagia with G-J tube in place, PVD, kidney transplant, liver transplant, polysubstance use disorder, insulin- dependent type 2 diabetes,and paroxysmal AFib on Eliquis who presents initially presented to the ED on 08/20/24 from [facility] with multiple complaints including dizziness for several months, chest pain for a ?long time?, and nausea/vomiting. Workup at that time was unremarkable except for patient continued to test positive for COVID. Family was consulted and they appealed discharge back to [facility] and wanted him placed somewhere else. Patient was then placed in physician observation and moved to the overflow where he had a large amount of coffee-ground emesis at 04:00 this morning which was heme- positive. CT of abdomen and pelvis bleeding scan was completed which was limited secondary to residual oral contrast, but was negative for any definitive GI bleed. Labs were grossly unremarkable and baseline for patient with a stable H&H of 11.3/36.4. Chronic transaminitis with AST 68, ALT 75, and alk-phos 205 with normal T bili of 0.5. UA negative for UTI. Patient currently complains of continued nausea with some lightheadedness and dizziness as well as ?stomach? pain. Denies cough or difficulty breathing. Currently no chest pain or pressure. Patient will be admitted to the hospital for treatment and further evaluation of coffee-ground emesis concerning for possible UGIB. Of note, patient was recently hospitalized at [facility] from 08/09-08/17 where he presented from an SNF due to intractable nausea and vomiting and was admitted for COVID infection with concern for superimposed bacterial pneumonia. Hospital course was complicated by coffee-ground emesis that resolved and H&H remained stable throughout his stay. Does not appear patient got an EGD while there, but had a follow up appointment on 08/20 4 follow up gastric emptying study which [facility] apparently did not make arrangements for. Patient did undergo a small bowel series and RUQ U/S which was negative for any acute abnormalities. Patient also follows with GI where he was tentatively diagnosed with erosive gastritis, esophagitis, possible gastroparesis on 08/04/2024. Review of Systems 2 Review of Systems: Negative except for that which is stated in the [facility] Medical History (Updated 08/24/24 @ 12:53 by KRYSTIN Lundberg) Esophagitis Erosive gastritis Insulin dependent type 2 diabetes mellitus Polysubstance use disorder Afib HTN (hypertension) GERD (gastroesophageal reflux disease) CVA (cerebral vascular accident) Diabetes Surgical History (Updated 08/24/24 @ 12:16 by KRYSTIN Lundberg) Liver transplant recipient Kidney transplant recipient Social History Patient Tobacco Use Status: Tobacco use Unknown Smoked in Last 30 Days: No Use of substances other than those prescribed or required for medical reasons: No Advance Directives: Yes Advance Directives on File: Yes Advance Directives Date on File: 08/22/24 Meds Allergies Allergy/AdvReac Type Severity Reaction Status Date / Time desipramine Allergy Unknown Verified 08/20/24 16:32 Active Medications: Current Medications Apixaban (Apixaban 5 Mg Tablet) 5 mg PO BID [facility] Last Admin: 08/24/24 09:12 Dose: Not Given Aspirin (Aspirin 81 Mg Tab.Chew) 81 mg PO DAILY [facility] Last Admin: 08/24/24 09:10 Dose: Not Given Atorvastatin Calcium (Atorvastatin Calcium 80 Mg Tablet) 80 mg PO DAILY [facility] Last Admin: 08/24/24 09:11 Dose: Not Given Bisacodyl (Bisacodyl 10 Mg Supp.Rect) 10 mg MS DAILY PRN PRN Reason: Constipation Carvedilol (Carvedilol 6.25 Mg Tablet) 6.25 mg PO BID [facility]; Protocol Last Admin: 08/24/24 09:11 Dose: Not Given Diphenhydramine HCl (Diphenhydramine Hcl 25 Mg Capsule) 25 mg PO Q4H PRN PRN Reason: Itching Last Admin: 08/23/24 12:30 Dose: 25 mg Doxazosin Mesylate (Doxazosin Mesylate 2 Mg Tablet) 2 mg PO DAILY [facility]; Protocol Last Admin: 08/24/24 09:11 Dose: Not Given Finasteride (Finasteride 5 Mg Tablet) 5 mg PO DAILY [facility] Last Admin: 08/24/24 09:11 Dose: Not Given Gabapentin (Gabapentin 100 Mg Capsule) 100 mg PO BID [facility] Last Admin: 08/24/24 09:11 Dose: Not Given Insulin Glargine (Insulin Glargine,Hum.Rec.Anlog 100 Unit/Ml 10 Ml Vial) 10 unit SUBCUT DAILY [facility] Last Admin: 08/24/24 09:11 Dose: Not Given Insulin Human Lispro (Insulin Lispro 100 Unit/Ml 3 Ml Vial) 0 unit SUBCUT QIDACHS [facility]; Protocol Last Admin: 08/24/24 08:48 Dose: Not Given Lidocaine (Lidocaine 4 % Patch Adh..Patch) 1 patch TRANSDERMA DAILY PRN; Protocol PRN Reason: Back Pain Lidocaine (Lidocaine 4 % Patch Adh..Patch) 1 patch TRANSDERMA DAILY PRN; Protocol PRN Reason: SHOULDER PAIN Metoclopramide HCl (Metoclopramide Hcl 10 Mg Tablet) 10 mg PO Q6H PRN PRN Reason: GERD Last Admin: 08/22/24 03:15 Dose: 10 mg Multivitamins/Minerals (Multivitamin With Minerals Liq 15 Ml Liquid) 15 ml PO DAILY [facility] Last Admin: 08/24/24 09:10 Dose: Not Given Omeprazole (Omeprazole/Na Bicarb Oral Susp 20 Mg/10 Ml Ud Cup) 20 mg PO DAILY@0630 [facility] Last Admin: 08/24/24 08:48 Dose: Not Given Polyethylene Glycol (Polyethylene Glycol 3350 17 Gm Powd.Pack) 17 gm PO DAILY [facility] Last Admin: 08/24/24 09:10 Dose: Not Given Prednisone (Prednisone 5 Mg Tablet) 5 mg PO DAILY [facility] Last Admin: 08/24/24 09:10 Dose: Not Given Senna (Sennosides Oral Syrup 8.8 Mg/5 Ml) 8.8 mg PO BID PRN PRN Reason: Constipation Tacrolimus (Tacrolimus 0.5 Mg Capsule) 0.5 mg PO Q12H [facility] Last Admin: 08/24/24 09:11 Dose: Not Given Tenofovir Disoproxil Fumarate (Tenofovir Disoproxil Fumarate 300 Mg Tablet) 300 mg PO DAILY [facility] Home Medications ?Medication ?Instructions ?Recorded ?Confirmed ?Last Taken ?Type acetaminophen 500 mg/15 mL oral 1,000 mg PO Q8H PRN Pain 08/21/24 08/21/24 Unknown History liquid albuterol 90 mcg-budesonide 80 2 inh inhalation QID PRN Wheezing 08/21/24 08/21/24 Unknown History mcg/actuation HFA aerosol inhaler apixaban 5 mg tablet 5 mg PO BID 08/21/24 08/21/24 Unknown History aspirin 81 mg tablet,delayed 81 mg PO DAILY 08/21/24 08/21/24 Unknown History release bisacodyl 10 mg rectal suppository 10 mg MS DAILY PRN Constipation 08/21/24 08/21/24 Unknown History carvedilol 6.25 mg tablet (Coreg) 6.25 mg PO BID 08/21/24 08/21/24 Unknown History diphenhydramine HCl 25 mg capsule 25 mg PO Q4H PRN Itching 08/21/24 08/21/24 Unknown History (Benadryl) doxazosin 2 mg tablet 2 mg PO DAILY 08/21/24 08/21/24 Unknown History entecavir 0.5 mg tablet 0.5 mg PO DAILY 08/21/24 08/21/24 Unknown History finasteride 5 mg tablet 5 mg PO DAILY 08/21/24 08/21/24 Unknown History fluticasone furoate 50 1 ea inhalation DAILY 08/21/24 08/21/24 Unknown History mcg-vilanterol 25 mcg/dose inhalation powder gabapentin 250 mg/5 mL oral 100 mg PO BID 08/21/24 08/21/24 Unknown History solution insulin glargine 100 unit/mL 10 unit subcut DAILY 08/21/24 08/21/24 Unknown History subcutaneous solution insulin lispro 100 unit/mL 1 sliding scale dose subcut 08/21/24 08/21/24 Unknown History subcutaneous pen USEASDIRECTD lansoprazole 30 mg capsule,delayed 30 mg PO DAILY 08/21/24 08/21/24 Unknown History release lidocaine 4 % topical patch 1 patch topical DAILY PRN Back Pain 08/21/24 08/21/24 Unknown History lidocaine 4 % topical patch 1 patch topical DAILY PRN SHOULDER 08/21/24 08/21/24 Unknown History PAIN metoclopramide HCl 10 mg tablet 10 mg PO Q6H PRN GERD 08/21/24 08/21/24 Unknown History multivitamin 1 tab PO DAILY 08/21/24 08/21/24 Unknown History polyethylene glycol 3350 17 gram 17 g PO DAILY 08/21/24 08/21/24 Unknown History oral powder packet prednisone 5 mg tablet 5 mg PO DAILY 08/21/24 08/21/24 Unknown History rosuvastatin 20 mg tablet 40 mg PO DAILY 08/21/24 08/21/24 Unknown History sennosides 8.8 mg/5 mL oral syrup 8.8 mg PO BID PRN Constipation 08/21/24 08/21/24 Unknown History (senna) tacrolimus 0.5 mg capsule, 0.5 mg PO Q12H 08/21/24 08/21/24 Unknown History immediate-release Physical Exam 2 Vital Signs and Narrative: Vital Signs: Last Vital Signs Temp 99.1 F 08/24/24 09:03 Pulse 98 08/24/24 09:03 Resp 14 08/24/24 09:03 BP 160/68 H 08/24/24 09:03 Pulse Ox 97 08/24/24 09:03 O2 Del Method Room Air 08/24/24 09:03 BMI result Body Mass Index 25.1 General: AOx3, no acute distress Resp: CTA bilaterally CVS: S1, S2, RRR GI: +BS, no distention. Mild diffuse abd pain, though exam relatively benign Skin: Warm, dry Neuro: Chronic left-sided hemiparesis Extremities: No edema Results Labs 08/24/24 07:42 08/24/24 07:42 Labs: Laboratory Results - last 24 hr 08/23/24 08/23/24 08/24/24 18:54 19:09 03:21 MCV 75.2 L MCH 23.4 L MCHC 31.2 RDW 15.9 Plt Count 339 MPV 10.9 Immature Gran % (Auto) 0.2 Neut % (Auto) 38.2 L Lymph % (Auto) 39.2 Pershing % (Auto) 13.2 H Eos % (Auto) 8.2 H Baso % (Auto) 1.0 Lymph # (Auto) 2.4 Pershing # (Auto) 0.8 Eos # (Auto) 0.5 H Baso # (Auto) 0.1 Abs Immat Gran (auto) 0.01 Absolute Neuts (auto) 2.4 Absolute Nucleated RBC 0.000 Nucleated RBC % (auto) 0.0 PT INR APTT Anion Gap 16 Estim Creat Clear Calc 92.4 Estimated GFR > 60 POC Glucose Random Glucose 192 H Calcium 9.4 Magnesium Total Bilirubin Direct Bilirubin AST ALT Alkaline Phosphatase Total Protein Albumin Lipase Urine Color Yellow Urine Appearance Cloudy Urine pH 8.0 Ur Specific [place] 1.025 Urine Protein 30 (1+) H Urine Glucose (UA) Negative Urine Ketones Trace Urine Blood Negative Urine Nitrite Negative Ur Leukocyte Esterase Negative Urine RBC 0-2 Urine WBC 0-5 Ur Squamous Epith Cells 0-2 Urine Bacteria None Seen Hyaline Casts 0-2 Gastric Occult Blood POSITIVE Blood Type Antibody Screen 08/24/24 08/24/24 07:42 08:46 MCV 76.6 L MCH 23.8 L MCHC 31.0 RDW 16.1 H Plt Count 379 MPV 11.1 Immature Gran % (Auto) 0.3 Neut % (Auto) 36.8 L Lymph % (Auto) 43.7 H Pershing % (Auto) 11.9 H Eos % (Auto) 6.8 H Baso % (Auto) 0.5 Lymph # (Auto) 3.4 Pershing # (Auto) 0.9 Eos # (Auto) 0.5 H Baso # (Auto) 0.0 Abs Immat Gran (auto) 0.02 Absolute Neuts (auto) 2.8 Absolute Nucleated RBC 0.000 Nucleated RBC % (auto) 0.0 PT 16.4 H INR 1.4 H APTT 24.2 L Anion Gap 15 Estim Creat Clear Calc 95.7 Estimated GFR > 60 POC Glucose 189 H Random Glucose 184 H Calcium 9.3 Magnesium 1.7 Total Bilirubin 0.5 Direct Bilirubin 0.2 AST 68 H ALT 75 H Alkaline Phosphatase 205 H Total Protein 8.8 H Albumin 3.3 L Lipase 9 Urine Color Urine Appearance Urine pH Ur Specific [place] Urine Protein Urine Glucose (UA) Urine Ketones Urine Blood Urine Nitrite Ur Leukocyte Esterase Urine RBC Urine WBC Ur Squamous Epith Cells Urine Bacteria Hyaline Casts Gastric Occult Blood Blood Type O Positive Antibody Screen NEGATIVE Imaging Radiologist's Impressions: Impressions Chest X-Ray 08/23/24 17:29 IMPRESSION: Unremarkable examination. Electronically signed by: Cassidy Gallardo MD 08/23/2024 06:21 PM EST RP Head CT 08/23/24 18:03 IMPRESSION: No acute intracranial pathology. Electronically signed by: Shivam Null MD 08/23/2024 06:40 PM EST RP Chest X-Ray 08/24/24 03:35 IMPRESSION: Minimal lingular atelectasis and/or scarring and minimal scarring or atelectasis at the right lung base. No other significant abnormality seen. Electronically signed by: Yoni Ken MD 08/24/2024 06:08 AM EST RP Abdomen/Pelvis CT 08/24/24 07:54 IMPRESSION: 1. Evaluation for gastrointestinal hemorrhage is limited secondary to residual oral contrast. No definite contrast extravasation identified. 2. Residual oral contrast noted throughout the colon and in particular the rectum. Colonic diverticulosis without acute diverticulitis. 3. Percutaneous gastrojejunostomy tube redemonstrated. 4. Bilateral jamul kidneys are atrophied. Right lower abdomen/pelvis renal transplant, stable. 5. Redemonstrated high-density material within the dependent aspect of intraluminal urinary bladder, nonspecific. Electronically signed by: Bhavesh De Leon MD 08/24/2024 10:40 AM EST RP Assessment and Plan (1) Coffee ground emesis: Status: Acute Plan Pt is a 63-year-old male who resides at a SNF with a PMH significant for?CVA with residual left-sided hemiparesis, dysphagia with G-J tube in place, PVD, kidney transplant, liver transplant, polysubstance use disorder, insulin- dependent type 2 diabetes,and paroxysmal AFib on Eliquis who presents initially presented to the ED on 08/20/24 from [facility] with multiple complaints including dizziness for several months, chest pain for a ?long time?, and nausea/vomiting. While in overflow patient had an episode of a large amount of coffee-ground emesis and will be admitted to the hospital for concern for UGIB. Coffee-ground emesis While in overflow awaiting SNF placement H&H stable at 11.3/36.4 Similar episode at [facility] during 08/09-08/17 admission Will treat with Protonix Hold Eliquis GI consult for EGD NPO, IVF Monitor H&H COVID+ The patient tested positive for COVID on 08/09/2024 Continues to be asymptomatic Will continue with Airborne and contact precautions Diet Pt with J-G tube in place, ?possible gastroparesis Missed a gastric emptying study follow-up appointment [facility] recommended slowing tube feeding from 45 to 25 with Nepro Can tolerate oral intake with pureed diet and nectar thick fluids Paroxysmal AFib Hold Eliquis Continue carvedilol History kidney and liver transplant Continue tacrolimus, tenofovir Insulin-dependent type 2 diabetes Sliding-scale insulin, Lantus Hx of CVA/HLD Hold aspirin Continue statin Full Code Attending:?Dr. Urbina DVT Prophylaxis: Pneumatic compression due to possible UGIB Pt will require a hospitalization of at least two nights for treatment and further evaluation coffee-ground emesis concerning for UGIB. Quality Stroke Does the patient have a stroke diagnosis?: No VTE Prior VTE?: No VTE Risk Level:: Medical - moderate - high VTE Device Contraindication: N/A - Device Ordered VTE Drug Contraindication: Treatment Not Indicated
[2024-08-24 12:37] LABS: Glucose, Whole Blood 146 mg/dL (60-115)
[2024-08-24] MEDS: Lactated Ringers 1,000 ML 100 ML IVCONT (13:53)
[2024-08-24] MEDS: diphenhydrAMINE HCL 50 MG/ML VIAL 25 MG IVPUSH ×2 (13:53→20:52)
[2024-08-24] MEDS: Tacrolimus 0.5 MG CAPSULE G-TUBE ×2 (15:24→23:12)
[2024-08-24 17:44] LABS: Glucose, Whole Blood 163 mg/dL (60-115)
[2024-08-24] MEDS: Pantoprazole Sodium 40 MG/10 ML VIAL IVPUSH (18:02)
[2024-08-24] MEDS: Insulin Lispro 100 UNIT/ML 3 ML VIAL SUBCUT (18:02)
[2024-08-24] MEDS: Acetaminophen 325 MG TABLET 650 MG G-TUBE (19:38)
[2024-08-24] MEDS: ondansetron HCL 4 MG/2 ML VIAL IVPUSH (19:39)
[2024-08-24] MEDS: Gabapentin 100 MG CAPSULE G-TUBE (19:44)
[2024-08-24] MEDS: carvediloL 6.25 MG TABLET G-TUBE (20:05)
[2024-08-24 20:32] LABS: Glucose, Whole Blood 116 mg/dL (60-115)
[2024-08-25] VITALS (10 sets, daily range): BP systolic 110–142; BP diastolic 43–76; PULSE 58–85; RESP 16–18; TEMP 36–36.6; O2SAT 93–100; BMI 21.9
[2024-08-25] MEDS: Lactated Ringers 1,000 ML 100 ML IVCONT ×2 (01:34→09:41)
--- NOTE | 2024-08-25 03:48 | PC.NURSE ---
Pt. refusing vital signs to be checked at this time; will re-approach patient at later time.
[2024-08-25] MEDS: Pantoprazole Sodium 40 MG/10 ML VIAL IVPUSH ×2 (05:41→16:59)
--- NOTE | 2024-08-25 05:56 | PC.NURSE ---
Pt. agreeable to have his vital signs checked at this time. Pt. with some urine in [place] catheter tubing. Pt. states he does not have to urinate at this time. Pt. refusing to allow bladder scan done now.
[2024-08-25 06:54] LABS: Hematocrit 32.8 % (42.0-52.0); Hemoglobin 10.1 g/dl (14.0-18.0); Mean Corpuscular HGB Conc 30.8 g/dl (31.0-36.0); Mean Corpuscular Hemoglobin 23.8 pg (27.0-33.0); Mean Corpuscular Volume 77.2 fL (80.0-98.0); Platelet Count 294 X10*3/uL (160-400); Red Blood Count 4.25 X10*6/uL (4.60-5.80); Red Cell Distribution Width 16.2 % (11.0-16.0); White Blood Count 5.9 X10*3/uL (4.8-10.8)
[2024-08-25 07:01] LABS: Anion Gap 14 (12-20); Blood Urea Nitrogen 16 mg/dL (9-16); Calcium 9.1 mg/dL (8.4-10.2); Carbon Dioxide 24 mmol/L (22-29); Chloride 104 mmol/L (96-108); Creatinine Clr Calc Pharmacy 85.2; Estimated Glomerular Filt Rate > 60; Glucose Random 118 mg/dL (60-115); Potassium 3.4 mmol/L (3.3-5.1); Sodium 139 mmol/L (135-145)
[2024-08-25 07:57] LABS: Glucose, Whole Blood 176 mg/dL (60-115)
[2024-08-25 07:59] LABS: Glucose, Whole Blood 246 mg/dL (60-115)
[2024-08-25 08:00] LABS: Glucose, Whole Blood 173 mg/dL (60-115)
--- NOTE | 2024-08-25 08:54 | PM.EVENT ---
Event Note Date of Service: 08/25/24 Event Note: GI consult dictated EGD later today for further evaluation of coffee ground emesis. Continue npo and hold tube feeds for now. Time Spent With Patient Time: Total time managing care of this patient today ____ minutes.
--- NOTE | 2024-08-25 08:56 | MHC.SHP ---
Pre-Procedural Eval Section A - 24 Hr Update-Section A only Date of Service: 08/25/24 The patient is an INPATIENT: Yes Changes since office visit: No Cold of Flu in the past 2 weeks, No New Medical Problems, No Changes in Medication and No Patient answered all questions The patient has been examined within 24 hours of the surgical procedure. The History & Physical has been completed within 30 days and I have reviewed it.: Yes Section B - Complete if H&P > 30 days Chief Complaint: Coffee-ground emesis,?UGIB Allergies: Allergies Allergy/AdvReac Type Severity Reaction Status Date / Time desipramine Allergy Unknown Verified 08/20/24 16:32 Plan I have reviewed the history and physical and performed a pertinent physical examination on my patient. No changes have occurred unless specified. Time Spent With Patient Time: Total time managing care of this patient today ____ minutes.
[2024-08-25] MEDS: Insulin Glargine,Hum.rec.anlog 100 UNIT/ML 10 ML VIAL 10 UNIT SUBCUT (09:39)
[2024-08-25] MEDS: Multivitamin with Minerals Liq 15 ML LIQUID G-TUBE (09:39)
[2024-08-25] MEDS: Doxazosin Mesylate 2 MG TABLET G-TUBE (09:40)
[2024-08-25] MEDS: carvediloL 6.25 MG TABLET G-TUBE ×2 (09:40→20:27)
[2024-08-25] MEDS: Atorvastatin Calcium 80 MG TABLET G-TUBE (09:40)
[2024-08-25] MEDS: predniSONE 5 MG TABLET G-TUBE (09:40)
[2024-08-25] MEDS: Tenofovir Disoproxil Fumarate 300 MG TABLET G-TUBE (09:40)
[2024-08-25] MEDS: Gabapentin 100 MG CAPSULE G-TUBE ×2 (09:40→20:27)
[2024-08-25] MEDS: Finasteride 5 MG TABLET PO (09:40)
[2024-08-25] MEDS: Tacrolimus 0.5 MG CAPSULE G-TUBE ×2 (09:40→20:27)
[2024-08-25 09:44] LABS: Glucose, Whole Blood 119 mg/dL (60-115)
[2024-08-25] MEDS: polyethylene glycoL 3350 17 GM POWD.PACK G-TUBE (09:50)
--- NOTE | 2024-08-25 09:59 | CONS_ITS ---
DATE OF SERVICE: 08/25/2024 REFERRING PHYSICIAN: Dr. Urbina REASON FOR CONSULTATION: Coffee-ground emesis. HISTORY OF PRESENT ILLNESS: The patient is a pleasant 63-year-old man, who was admitted to the hospital after reportedly having large amounts of coffee-ground emesis in the emergency department. He was evaluated for placement and during his stay in the emergency department vomited coffee-grounds at 4 o'clock in the morning of admission and there was no reported melena. CT scanning showed no evidence of active GI bleeding and the patient denies epigastric pain. He has been treated with a proton pump inhibitor. He reportedly had coffee-ground emesis earlier in the month at another hospital as well, but did not undergo upper endoscopy. Upper GI and small bowel follow-through as well as right upper quadrant ultrasound were reportedly normal. He denies any prior history of peptic ulcer disease, chronic NSAID usage, or significant alcohol intake. PAST MEDICAL HISTORY: 1. COVID-19 infection. 2. Gastroesophageal reflux disease with esophagitis/gastritis. 3. Hypertension. 4. CVA. 5. Diabetes. 6. Substance abuse. 7. Atrial fibrillation with history of aspirin and Eliquis use. CURRENT MEDICATIONS: His current medication list is reviewed in the chart. His aspirin and Eliquis are on hold. ALLERGIES: DESIPRAMINE. FAMILY HISTORY: This is reviewed in the electronic medical record and is noncontributory. SOCIAL HISTORY: There is no current tobacco, alcohol, or substance abuse. He has had a history of CVA and G-tube placement and has been residing at a group home. REVIEW OF SYSTEMS: SKIN: No pruritus. HEENT: Negative. CARDIOPULMONARY: He denies shortness of breath or chest pain. GASTROINTESTINAL: As above. GENITOURINARY: Negative. NEUROPSYCHIATRIC: Negative. PHYSICAL EXAMINATION: GENERAL: Shows a pleasant male, lying comfortably in bed, watching television. VITAL SIGNS: Reviewed in electronic medical record and are stable. SKIN: Anicteric. HEENT: Shows no scleral icterus. NECK: Without lymphadenopathy or thyromegaly. LUNGS: Clear. HEART: Shows regular rate and rhythm. S1, S2. No murmur. ABDOMEN: Soft without focal masses or tenderness. Bowel sounds are present. G-tube site appears intact. EXTREMITIES: Without edema. LABORATORY DATA: Shows a white blood cell count of 5.9, hematocrit 32.8 this morning down from 36.4 yesterday. No reported melena. Abdomen CT shows no obvious active GI bleed. IMPRESSION AND RECOMMENDATIONS: Coffee-ground emesis. We discussed the differential diagnosis for this including erosive esophagitis, gastritis, peptic ulcer disease, and malignancy. I have recommended upper endoscopy for further evaluation. He understands risks and benefits and agrees to proceed. This will be scheduled for later today. Thanks for asking me to see him. I will follow him in the hospital with you. MD JEFFREY Sorto/MARY / [id number]
--- NOTE | 2024-08-25 10:37 | P.CONAN_ITS ---
[facility] Active Problems Active Problems: All Active Problems Nausea (Acute) Dizziness (Acute) Acute upper gastrointestinal bleeding (Acute) Coffee ground emesis (Acute) Past Medical History Medical History Esophagitis Erosive gastritis Insulin dependent type 2 diabetes mellitus Polysubstance use disorder Afib HTN (hypertension) GERD (gastroesophageal reflux disease) CVA (cerebral vascular accident) Diabetes Functional capacity: independent ambulation Family History Family history of problems with anesthesia: No Surgical History Surgical History Liver transplant recipient Kidney transplant recipient History of Problems with Anesthesia: No Social History Social History Household Members: Caregiver Household Members Other:: daughter Housing: Assisted Living Facility Do you presently have visiting nurse or other home services: No Patient Tobacco Use Status: Tobacco use Unknown Smoked in Last 30 Days: No Patient Interested in Nicotine Replacement: No Patient Given Instructions on How to Stop Smoking: No Second Hand Smoke Exposure: No Use of substances other than those prescribed or required for medical reasons: No Currently Displaying Signs/Symptoms of Drug Intoxication Withdrawal: No Any prior treatment program specific to substance use: No Have you been hit, kicked, punched, or otherwise hurt by someone within the past year? If so, by whom?: No Do you feel safe in your current relationship?: Yes Is there a partner from a previous relationship who is making you feel unsafe now?: No Are you made to feel afraid or neglected: No Protestant Healthcare Practices: amish Advance Directives: Yes Advance Directives on File: Yes Advance Directives Date on File: 08/22/24 Do you have a plan to hurt others: No Plan Recently lost weight without trying: Yes How much weight loss: 2-13 pounds Eating poorly because of decreased appetite: Yes Nutrition screen score: 4 Nutrition Risks: Difficulty swallowing, On aspiration precautions and Receiving home tube feeding or CPN Poor oral hygiene: No Meds Allergies Allergy/AdvReac Type Severity Reaction Status Date / Time desipramine Allergy Unknown Verified 08/20/24 16:32 Active Medications: Current Medications Acetaminophen (Acetaminophen 325 Mg Tablet) 650 mg G-TUBE Q6H PRN PRN Reason: Pain, Mild (Pain Scale 1-3), fever or headache Last Admin: 08/24/24 19:38 Dose: 650 mg Apixaban (Apixaban 5 Mg Tablet) 5 mg PO BID [facility] Last Admin: 08/24/24 09:12 Dose: Not Given Aspirin (Aspirin 81 Mg Tab.Chew) 81 mg PO DAILY [facility] Last Admin: 08/24/24 09:10 Dose: Not Given Atorvastatin Calcium (Atorvastatin Calcium 80 Mg Tablet) 80 mg G-TUBE DAILY [facility] Last Admin: 08/25/24 09:40 Dose: 80 mg Bisacodyl (Bisacodyl 10 Mg Supp.Rect) 10 mg TN DAILY PRN PRN Reason: Constipation Carvedilol (Carvedilol 6.25 Mg Tablet) 6.25 mg G-TUBE BID [facility]; Protocol Last Admin: 08/25/24 09:40 Dose: 6.25 mg Diphenhydramine HCl (Diphenhydramine Hcl 50 Mg/Ml Vial) 25 mg IVPUSH Q4H PRN PRN Reason: Itching Last Admin: 08/24/24 20:52 Dose: 25 mg Doxazosin Mesylate (Doxazosin Mesylate 2 Mg Tablet) 2 mg G-TUBE DAILY [facility]; Protocol Last Admin: 08/25/24 09:40 Dose: 2 mg Finasteride (Finasteride 5 Mg Tablet) 5 mg PO DAILY [facility] Last Admin: 08/25/24 09:40 Dose: 5 mg Gabapentin (Gabapentin 100 Mg Capsule) 100 mg G-TUBE BID [facility] Last Admin: 08/25/24 09:40 Dose: 100 mg Lactated Ringer's (Lr) 1,000 mls @ 100 mls/hr IVCONT .Q10H [facility] Last Admin: 08/25/24 09:41 Dose: 100 mls/hr Insulin Glargine (Insulin Glargine,Hum.Rec.Anlog 100 Unit/Ml 10 Ml Vial) 10 unit SUBCUT DAILY [facility] Last Admin: 08/25/24 09:39 Dose: 10 unit Insulin Human Lispro (Insulin Lispro 100 Unit/Ml 3 Ml Vial) 0 unit SUBCUT QIDACHS [facility]; Protocol Last Admin: 08/25/24 09:43 Dose: Not Given Lidocaine (Lidocaine 4 % Patch Adh..Patch) 1 patch TRANSDERMA DAILY PRN; Protocol PRN Reason: Back Pain Lidocaine (Lidocaine 4 % Patch Adh..Patch) 1 patch TRANSDERMA DAILY PRN; Protocol PRN Reason: SHOULDER PAIN Magnesium Hydroxide (Milk Of Magnesia 30 Ml Oral.Susp) 30 ml G-TUBE DAILY PRN PRN Reason: Constipation Metoclopramide HCl (Metoclopramide Hcl 10 Mg Tablet) 10 mg G-TUBE Q6H PRN PRN Reason: GERD Multivitamins/Minerals (Multivitamin With Minerals Liq 15 Ml Liquid) 15 ml G- TUBE DAILY [facility] Last Admin: 08/25/24 09:39 Dose: 15 ml Omeprazole (Omeprazole/Na Bicarb Oral Susp 20 Mg/10 Ml Ud Cup) 20 mg PO DAILY@0630 [facility] Last Admin: 08/24/24 08:48 Dose: Not Given Ondansetron HCl (Ondansetron Hcl 4 Mg/2 Ml Vial) 4 mg IVPUSH Q8H PRN PRN Reason: Nausea and Vomiting Last Admin: 08/24/24 19:39 Dose: 4 mg Pantoprazole Sodium (Pantoprazole Sodium 40 Mg/10 Ml Vial) 40 mg IVPUSH BID@0630,1630 [facility] Last Admin: 08/25/24 05:41 Dose: 40 mg Polyethylene Glycol (Polyethylene Glycol 3350 17 Gm Powd.Pack) 17 gm G-TUBE DAILY [facility] Last Admin: 08/25/24 09:50 Dose: 17 gm Prednisone (Prednisone 5 Mg Tablet) 5 mg G-TUBE DAILY [facility] Last Admin: 08/25/24 09:40 Dose: 5 mg Senna (Sennosides Oral Syrup 8.8 Mg/5 Ml) 8.8 mg G-TUBE BID PRN PRN Reason: Constipation Sodium Chloride (0.9 % Sodium Chloride Flush 3 Ml Syringe) 3 ml IVFLUSH QSHIFT [facility] Last Admin: 08/25/24 09:43 Dose: Not Given Tacrolimus (Tacrolimus 0.5 Mg Capsule) 0.5 mg G-TUBE BID [facility] Last Admin: 08/25/24 09:40 Dose: 0.5 mg Tenofovir Disoproxil Fumarate (Tenofovir Disoproxil Fumarate 300 Mg Tablet) 300 mg G-TUBE DAILY [facility] Last Admin: 08/25/24 09:40 Dose: 300 mg Home Medications ?Medication ?Instructions ?Recorded ?Confirmed ?Last Taken ?Type acetaminophen 500 mg/15 mL oral 1,000 mg PO Q8H PRN Pain 08/21/24 08/21/24 Unknown History liquid albuterol 90 mcg-budesonide 80 2 inh inhalation QID PRN Wheezing 08/21/24 08/21/24 Unknown History mcg/actuation HFA aerosol inhaler apixaban 5 mg tablet 5 mg PO BID 08/21/24 08/21/24 Unknown History aspirin 81 mg tablet,delayed 81 mg PO DAILY 08/21/24 08/21/24 Unknown History release bisacodyl 10 mg rectal suppository 10 mg TN DAILY PRN Constipation 08/21/24 08/21/24 Unknown History carvedilol 6.25 mg tablet (Coreg) 6.25 mg PO BID 08/21/24 08/21/24 Unknown History diphenhydramine HCl 25 mg capsule 25 mg PO Q4H PRN Itching 08/21/24 08/21/24 Unknown History (Benadryl) doxazosin 2 mg tablet 2 mg PO DAILY 08/21/24 08/21/24 Unknown History entecavir 0.5 mg tablet 0.5 mg PO DAILY 08/21/24 08/21/24 Unknown History finasteride 5 mg tablet 5 mg PO DAILY 08/21/24 08/21/24 Unknown History fluticasone furoate 50 1 ea inhalation DAILY 08/21/24 08/21/24 Unknown History mcg-vilanterol 25 mcg/dose inhalation powder gabapentin 250 mg/5 mL oral 100 mg PO BID 08/21/24 08/21/24 Unknown History solution insulin glargine 100 unit/mL 10 unit subcut DAILY 08/21/24 08/21/24 Unknown History subcutaneous solution insulin lispro 100 unit/mL 1 sliding scale dose subcut 08/21/24 08/21/24 Unknown History subcutaneous pen USEASDIRECTD lansoprazole 30 mg capsule,delayed 30 mg PO DAILY 08/21/24 08/21/24 Unknown History release lidocaine 4 % topical patch 1 patch topical DAILY PRN Back Pain 08/21/24 08/21/24 Unknown History lidocaine 4 % topical patch 1 patch topical DAILY PRN SHOULDER 08/21/24 08/21/24 Unknown History PAIN metoclopramide HCl 10 mg tablet 10 mg PO Q6H PRN GERD 08/21/24 08/21/24 Unknown History multivitamin 1 tab PO DAILY 08/21/24 08/21/24 Unknown History polyethylene glycol 3350 17 gram 17 g PO DAILY 08/21/24 08/21/24 Unknown History oral powder packet prednisone 5 mg tablet 5 mg PO DAILY 08/21/24 08/21/24 Unknown History rosuvastatin 20 mg tablet 40 mg PO DAILY 08/21/24 08/21/24 Unknown History sennosides 8.8 mg/5 mL oral syrup 8.8 mg PO BID PRN Constipation 08/21/24 08/21/24 Unknown History (senna) tacrolimus 0.5 mg capsule, 0.5 mg PO Q12H 08/21/24 08/21/24 Unknown History immediate-release Exam Height,Weight and Vital Signs: Height 5 ft 11 in Weight 71.1 kg Last Vital Signs Temp 97.9 F 08/25/24 07:50 Pulse 85 08/25/24 07:50 Resp 18 08/25/24 07:50 BP 118/58 L 08/25/24 07:50 Pulse Ox 98 08/25/24 07:50 O2 Del Method Room Air 08/25/24 07:50 Pertinent Lab Results Pertinent Lab Results: Laboratory Tests 08/20/24 08/20/24 08/20/24 18:14 18:15 21:58 WBC 6.4 RBC 3.86 L Hgb 9.2 L Hct 29.8 L MCV 77.2 L MCH 23.8 L MCHC 30.9 L RDW 15.8 Plt Count 292 MPV 10.4 Immature Gran % (Auto) 0.2 Neut % (Auto) 47.4 Lymph % (Auto) 36.9 [place] % (Auto) 8.6 Eos % (Auto) 6.4 H Baso % (Auto) 0.5 Lymph # (Auto) 2.4 [place] # (Auto) 0.6 Eos # (Auto) 0.4 Baso # (Auto) 0.0 Abs Immat Gran (auto) 0.01 Absolute Neuts (auto) 3.0 Absolute Nucleated RBC 0.000 Nucleated RBC % (auto) 0.0 PT 14.9 H INR 1.3 H APTT Sodium 133 L Potassium 4.3 Chloride 102 Carbon Dioxide 28 Anion Gap 7 L BUN 11 Creatinine 1.00 Estim Creat Clear Calc 79.4 Estimated GFR > 60 POC Glucose Random Glucose 237 H Calcium 9.1 Magnesium 1.6 Total Bilirubin 0.3 Direct Bilirubin 0.2 AST 121 H ALT 100 H Alkaline Phosphatase 188 H Troponin I High Sens 3.9 C-Reactive Protein 0.31 B-Natriuretic Peptide 47 Total Protein 8.1 H Albumin 3.2 L Lipase 28 Urine Color Yellow Urine Appearance Turbid Urine pH 8.5 Ur Specific [place] 1.020 Urine Protein Trace Urine Glucose (UA) 100 H Urine Ketones Negative Urine Blood Negative Urine Nitrite Negative Ur Leukocyte Esterase Negative Urine RBC Urine WBC Ur Squamous Epith Cells Urine Bacteria Hyaline Casts Gastric Occult Blood Influenza Type A (PCR) NEGATIVE Influenza Type B (PCR) NEGATIVE RSV RNA Qual (PCR) NEGATIVE SARS-CoV-2 RNA (RT-PCR) POSITIVE A Blood Type Antibody Screen 08/21/24 08/21/24 08/21/24 09:03 11:10 16:46 WBC RBC Hgb Hct MCV MCH MCHC RDW Plt Count MPV Immature Gran % (Auto) Neut % (Auto) Lymph % (Auto) [place] % (Auto) Eos % (Auto) Baso % (Auto) Lymph # (Auto) [place] # (Auto) Eos # (Auto) Baso # (Auto) Abs Immat Gran (auto) Absolute Neuts (auto) Absolute Nucleated RBC Nucleated RBC % (auto) PT INR APTT Sodium Potassium Chloride Carbon Dioxide Anion Gap BUN Creatinine Estim Creat Clear Calc Estimated GFR POC Glucose 169 H 207 H 199 H Random Glucose Calcium Magnesium Total Bilirubin Direct Bilirubin AST ALT Alkaline Phosphatase Troponin I High Sens C-Reactive Protein B-Natriuretic Peptide Total Protein Albumin Lipase Urine Color Urine Appearance Urine pH Ur Specific [place] Urine Protein Urine Glucose (UA) Urine Ketones Urine Blood Urine Nitrite Ur Leukocyte Esterase Urine RBC Urine WBC Ur Squamous Epith Cells Urine Bacteria Hyaline Casts Gastric Occult Blood Influenza Type A (PCR) Influenza Type B (PCR) RSV RNA Qual (PCR) SARS-CoV-2 RNA (RT-PCR) Blood Type Antibody Screen 08/21/24 08/22/24 08/22/24 20:58 07:38 11:57 WBC RBC Hgb Hct MCV MCH MCHC RDW Plt Count MPV Immature Gran % (Auto) Neut % (Auto) Lymph % (Auto) [place] % (Auto) Eos % (Auto) Baso % (Auto) Lymph # (Auto) [place] # (Auto) Eos # (Auto) Baso # (Auto) Abs Immat Gran (auto) Absolute Neuts (auto) Absolute Nucleated RBC Nucleated RBC % (auto) PT INR APTT Sodium Potassium Chloride Carbon Dioxide Anion Gap BUN Creatinine Estim Creat Clear Calc Estimated GFR POC Glucose 203 H 171 H 176 H Random Glucose Calcium Magnesium Total Bilirubin Direct Bilirubin AST ALT Alkaline Phosphatase Troponin I High Sens C-Reactive Protein B-Natriuretic Peptide Total Protein Albumin Lipase Urine Color Urine Appearance Urine pH Ur Specific [place] Urine Protein Urine Glucose (UA) Urine Ketones Urine Blood Urine Nitrite Ur Leukocyte Esterase Urine RBC Urine WBC Ur Squamous Epith Cells Urine Bacteria Hyaline Casts Gastric Occult Blood Influenza Type A (PCR) Influenza Type B (PCR) RSV RNA Qual (PCR) SARS-CoV-2 RNA (RT-PCR) Blood Type Antibody Screen 08/22/24 08/22/24 08/23/24 17:14 21:32 18:54 WBC 6.2 RBC 5.08 D Hgb 11.9 L D Hct 38.2 L D MCV 75.2 L MCH 23.4 L MCHC 31.2 RDW 15.9 Plt Count 339 MPV 10.9 Immature Gran % (Auto) 0.2 Neut % (Auto) 38.2 L Lymph % (Auto) 39.2 [place] % (Auto) 13.2 H Eos % (Auto) 8.2 H Baso % (Auto) 1.0 Lymph # (Auto) 2.4 [place] # (Auto) 0.8 Eos # (Auto) 0.5 H Baso # (Auto) 0.1 Abs Immat Gran (auto) 0.01 Absolute Neuts (auto) 2.4 Absolute Nucleated RBC 0.000 Nucleated RBC % (auto) 0.0 PT INR APTT Sodium 140 Potassium 4.7 Chloride 103 Carbon Dioxide 26 Anion Gap 16 BUN 14 Creatinine 0.86 Estim Creat Clear Calc 92.4 Estimated GFR > 60 POC Glucose 246 H 173 H Random Glucose 192 H Calcium 9.4 Magnesium Total Bilirubin Direct Bilirubin AST ALT Alkaline Phosphatase Troponin I High Sens C-Reactive Protein B-Natriuretic Peptide Total Protein Albumin Lipase Urine Color Urine Appearance Urine pH Ur Specific [place] Urine Protein Urine Glucose (UA) Urine Ketones Urine Blood Urine Nitrite Ur Leukocyte Esterase Urine RBC Urine WBC Ur Squamous Epith Cells Urine Bacteria Hyaline Casts Gastric Occult Blood Influenza Type A (PCR) Influenza Type B (PCR) RSV RNA Qual (PCR) SARS-CoV-2 RNA (RT-PCR) Blood Type Antibody Screen 08/23/24 08/24/24 08/24/24 19:09 03:21 07:42 WBC 7.7 RBC 4.75 Hgb 11.3 L Hct 36.4 L MCV 76.6 L MCH 23.8 L MCHC 31.0 RDW 16.1 H Plt Count 379 MPV 11.1 Immature Gran % (Auto) 0.3 Neut % (Auto) 36.8 L Lymph % (Auto) 43.7 H [place] % (Auto) 11.9 H Eos % (Auto) 6.8 H Baso % (Auto) 0.5 Lymph # (Auto) 3.4 [place] # (Auto) 0.9 Eos # (Auto) 0.5 H Baso # (Auto) 0.0 Abs Immat Gran (auto) 0.02 Absolute Neuts (auto) 2.8 Absolute Nucleated RBC 0.000 Nucleated RBC % (auto) 0.0 PT 16.4 H INR 1.4 H APTT 24.2 L Sodium 140 Potassium 3.5 D Chloride 101 Carbon Dioxide 28 Anion Gap 15 BUN 18 H Creatinine 0.83 Estim Creat Clear Calc 95.7 Estimated GFR > 60 POC Glucose Random Glucose 184 H Calcium 9.3 Magnesium 1.7 Total Bilirubin 0.5 Direct Bilirubin 0.2 AST 68 H ALT 75 H Alkaline Phosphatase 205 H Troponin I High Sens C-Reactive Protein B-Natriuretic Peptide Total Protein 8.8 H Albumin 3.3 L Lipase 9 Urine Color Yellow Urine Appearance Cloudy Urine pH 8.0 Ur Specific [place] 1.025 Urine Protein 30 (1+) H Urine Glucose (UA) Negative Urine Ketones Trace Urine Blood Negative Urine Nitrite Negative Ur Leukocyte Esterase Negative Urine RBC 0-2 Urine WBC 0-5 Ur Squamous Epith Cells 0-2 Urine Bacteria None Seen Hyaline Casts 0-2 Gastric Occult Blood POSITIVE Influenza Type A (PCR) Influenza Type B (PCR) RSV RNA Qual (PCR) SARS-CoV-2 RNA (RT-PCR) Blood Type O Positive Antibody Screen NEGATIVE 08/24/24 08/24/24 08/24/24 08:46 12:32 17:37 WBC RBC Hgb Hct MCV MCH MCHC RDW Plt Count MPV Immature Gran % (Auto) Neut % (Auto) Lymph % (Auto) [place] % (Auto) Eos % (Auto) Baso % (Auto) Lymph # (Auto) [place] # (Auto) Eos # (Auto) Baso # (Auto) Abs Immat Gran (auto) Absolute Neuts (auto) Absolute Nucleated RBC Nucleated RBC % (auto) PT INR APTT Sodium Potassium Chloride Carbon Dioxide Anion Gap BUN Creatinine Estim Creat Clear Calc Estimated GFR POC Glucose 189 H 146 H 163 H Random Glucose Calcium Magnesium Total Bilirubin Direct Bilirubin AST ALT Alkaline Phosphatase Troponin I High Sens C-Reactive Protein B-Natriuretic Peptide Total Protein Albumin Lipase Urine Color Urine Appearance Urine pH Ur Specific [place] Urine Protein Urine Glucose (UA) Urine Ketones Urine Blood Urine Nitrite Ur Leukocyte Esterase Urine RBC Urine WBC Ur Squamous Epith Cells Urine Bacteria Hyaline Casts Gastric Occult Blood Influenza Type A (PCR) Influenza Type B (PCR) RSV RNA Qual (PCR) SARS-CoV-2 RNA (RT-PCR) Blood Type Antibody Screen 08/24/24 08/25/24 08/25/24 20:21 06:31 09:40 WBC 5.9 RBC 4.25 L Hgb 10.1 L Hct 32.8 L MCV 77.2 L MCH 23.8 L MCHC 30.8 L RDW 16.2 H Plt Count 294 MPV 11.0 Immature Gran % (Auto) Neut % (Auto) Lymph % (Auto) [place] % (Auto) Eos % (Auto) Baso % (Auto) Lymph # (Auto) [place] # (Auto) Eos # (Auto) Baso # (Auto) Abs Immat Gran (auto) Absolute Neuts (auto) Absolute Nucleated RBC 0.000 Nucleated RBC % (auto) 0.0 PT INR APTT Sodium 139 Potassium 3.4 Chloride 104 Carbon Dioxide 24 Anion Gap 14 BUN 16 Creatinine 0.88 Estim Creat Clear Calc 85.2 Estimated GFR > 60 POC Glucose 116 H 119 H Random Glucose 118 H Calcium 9.1 Magnesium Total Bilirubin Direct Bilirubin AST ALT Alkaline Phosphatase Troponin I High Sens C-Reactive Protein B-Natriuretic Peptide Total Protein Albumin Lipase Urine Color Urine Appearance Urine pH Ur Specific [place] Urine Protein Urine Glucose (UA) Urine Ketones Urine Blood Urine Nitrite Ur Leukocyte Esterase Urine RBC Urine WBC Ur Squamous Epith Cells Urine Bacteria Hyaline Casts Gastric Occult Blood Influenza Type A (PCR) Influenza Type B (PCR) RSV RNA Qual (PCR) SARS-CoV-2 RNA (RT-PCR) Blood Type Antibody Screen Assessment and Plan Final Anesthetic Review Family History of Problems with Anesthesia: No History of Problems with Anesthesia: No
[2024-08-25 12:11] LABS: Glucose, Whole Blood 134 mg/dL (60-115)
--- NOTE | 2024-08-25 12:18 | PC.NURSE ---
PT off unit at this time for procedure
--- NOTE | 2024-08-25 12:25 | P.CONAN_ITS ---
[facility] Active Problems Active Problems: All Active Problems Nausea (Acute) Dizziness (Acute) Acute upper gastrointestinal bleeding (Acute) Coffee ground emesis (Acute) Past Medical History Medical History Esophagitis Erosive gastritis Insulin dependent type 2 diabetes mellitus Polysubstance use disorder Afib HTN (hypertension) GERD (gastroesophageal reflux disease) CVA (cerebral vascular accident) Diabetes Functional capacity: independent ambulation Family History Family history of problems with anesthesia: No Surgical History Surgical History Liver transplant recipient Kidney transplant recipient History of Problems with Anesthesia: No Social History Social History Household Members: Caregiver Household Members Other:: daughter Housing: Assisted Living Facility Do you presently have visiting nurse or other home services: No Patient Tobacco Use Status: Tobacco use Unknown Smoked in Last 30 Days: No Patient Interested in Nicotine Replacement: No Patient Given Instructions on How to Stop Smoking: No Second Hand Smoke Exposure: No Use of substances other than those prescribed or required for medical reasons: No Currently Displaying Signs/Symptoms of Drug Intoxication Withdrawal: No Any prior treatment program specific to substance use: No Have you been hit, kicked, punched, or otherwise hurt by someone within the past year? If so, by whom?: No Do you feel safe in your current relationship?: Yes Is there a partner from a previous relationship who is making you feel unsafe now?: No Are you made to feel afraid or neglected: No Yarsanism Healthcare Practices: gnosticism Advance Directives: Yes Advance Directives on File: Yes Advance Directives Date on File: 08/22/24 Do you have a plan to hurt others: No Plan Recently lost weight without trying: Yes How much weight loss: 2-13 pounds Eating poorly because of decreased appetite: Yes Nutrition screen score: 4 Nutrition Risks: Difficulty swallowing, On aspiration precautions and Receiving home tube feeding or CPN Poor oral hygiene: No Meds Allergies Allergy/AdvReac Type Severity Reaction Status Date / Time desipramine Allergy Unknown Verified 08/20/24 16:32 Active Medications: Current Medications Acetaminophen (Acetaminophen 325 Mg Tablet) 650 mg G-TUBE Q6H PRN PRN Reason: Pain, Mild (Pain Scale 1-3), fever or headache Last Admin: 08/24/24 19:38 Dose: 650 mg Apixaban (Apixaban 5 Mg Tablet) 5 mg PO BID [facility] Last Admin: 08/24/24 09:12 Dose: Not Given Aspirin (Aspirin 81 Mg Tab.Chew) 81 mg PO DAILY [facility] Last Admin: 08/24/24 09:10 Dose: Not Given Atorvastatin Calcium (Atorvastatin Calcium 80 Mg Tablet) 80 mg G-TUBE DAILY [facility] Last Admin: 08/25/24 09:40 Dose: 80 mg Bisacodyl (Bisacodyl 10 Mg Supp.Rect) 10 mg PA DAILY PRN PRN Reason: Constipation Carvedilol (Carvedilol 6.25 Mg Tablet) 6.25 mg G-TUBE BID [facility]; Protocol Last Admin: 08/25/24 09:40 Dose: 6.25 mg Diphenhydramine HCl (Diphenhydramine Hcl 50 Mg/Ml Vial) 25 mg IVPUSH Q4H PRN PRN Reason: Itching Last Admin: 08/24/24 20:52 Dose: 25 mg Doxazosin Mesylate (Doxazosin Mesylate 2 Mg Tablet) 2 mg G-TUBE DAILY [facility]; Protocol Last Admin: 08/25/24 09:40 Dose: 2 mg Finasteride (Finasteride 5 Mg Tablet) 5 mg PO DAILY [facility] Last Admin: 08/25/24 09:40 Dose: 5 mg Gabapentin (Gabapentin 100 Mg Capsule) 100 mg G-TUBE BID [facility] Last Admin: 08/25/24 09:40 Dose: 100 mg Lactated Ringer's (Lr) 1,000 mls @ 100 mls/hr IVCONT .Q10H [facility] Last Infusion: 08/25/24 12:17 Dose: 0 mls/hr Insulin Glargine (Insulin Glargine,Hum.Rec.Anlog 100 Unit/Ml 10 Ml Vial) 10 unit SUBCUT DAILY [facility] Last Admin: 08/25/24 09:39 Dose: 10 unit Insulin Human Lispro (Insulin Lispro 100 Unit/Ml 3 Ml Vial) 0 unit SUBCUT QIDACHS [facility]; Protocol Last Admin: 08/25/24 12:17 Dose: Not Given Lidocaine (Lidocaine 4 % Patch Adh..Patch) 1 patch TRANSDERMA DAILY PRN; Protocol PRN Reason: Back Pain Lidocaine (Lidocaine 4 % Patch Adh..Patch) 1 patch TRANSDERMA DAILY PRN; Protocol PRN Reason: SHOULDER PAIN Magnesium Hydroxide (Milk Of Magnesia 30 Ml Oral.Susp) 30 ml G-TUBE DAILY PRN PRN Reason: Constipation Metoclopramide HCl (Metoclopramide Hcl 10 Mg Tablet) 10 mg G-TUBE Q6H PRN PRN Reason: GERD Multivitamins/Minerals (Multivitamin With Minerals Liq 15 Ml Liquid) 15 ml G- TUBE DAILY [facility] Last Admin: 08/25/24 09:39 Dose: 15 ml Omeprazole (Omeprazole/Na Bicarb Oral Susp 20 Mg/10 Ml Ud Cup) 20 mg PO DAILY@0630 [facility] Last Admin: 08/24/24 08:48 Dose: Not Given Ondansetron HCl (Ondansetron Hcl 4 Mg/2 Ml Vial) 4 mg IVPUSH Q8H PRN PRN Reason: Nausea and Vomiting Last Admin: 08/24/24 19:39 Dose: 4 mg Pantoprazole Sodium (Pantoprazole Sodium 40 Mg/10 Ml Vial) 40 mg IVPUSH BID@0630,1630 [facility] Last Admin: 08/25/24 05:41 Dose: 40 mg Polyethylene Glycol (Polyethylene Glycol 3350 17 Gm Powd.Pack) 17 gm G-TUBE DAILY [facility] Last Admin: 08/25/24 09:50 Dose: 17 gm Prednisone (Prednisone 5 Mg Tablet) 5 mg G-TUBE DAILY [facility] Last Admin: 08/25/24 09:40 Dose: 5 mg Senna (Sennosides Oral Syrup 8.8 Mg/5 Ml) 8.8 mg G-TUBE BID PRN PRN Reason: Constipation Sodium Chloride (0.9 % Sodium Chloride Flush 3 Ml Syringe) 3 ml IVFLUSH QSHIFT [facility] Last Admin: 08/25/24 09:43 Dose: Not Given Tacrolimus (Tacrolimus 0.5 Mg Capsule) 0.5 mg G-TUBE BID [facility] Last Admin: 08/25/24 09:40 Dose: 0.5 mg Tenofovir Disoproxil Fumarate (Tenofovir Disoproxil Fumarate 300 Mg Tablet) 300 mg G-TUBE DAILY [facility] Last Admin: 08/25/24 09:40 Dose: 300 mg Home Medications ?Medication ?Instructions ?Recorded ?Confirmed ?Last Taken ?Type acetaminophen 500 mg/15 mL oral 1,000 mg PO Q8H PRN Pain 08/21/24 08/21/24 Unknown History liquid albuterol 90 mcg-budesonide 80 2 inh inhalation QID PRN Wheezing 08/21/24 08/21/24 Unknown History mcg/actuation HFA aerosol inhaler apixaban 5 mg tablet 5 mg PO BID 08/21/24 08/21/24 Unknown History aspirin 81 mg tablet,delayed 81 mg PO DAILY 08/21/24 08/21/24 Unknown History release bisacodyl 10 mg rectal suppository 10 mg PA DAILY PRN Constipation 08/21/24 08/21/24 Unknown History carvedilol 6.25 mg tablet (Coreg) 6.25 mg PO BID 08/21/24 08/21/24 Unknown History diphenhydramine HCl 25 mg capsule 25 mg PO Q4H PRN Itching 08/21/24 08/21/24 Unknown History (Benadryl) doxazosin 2 mg tablet 2 mg PO DAILY 08/21/24 08/21/24 Unknown History entecavir 0.5 mg tablet 0.5 mg PO DAILY 08/21/24 08/21/24 Unknown History finasteride 5 mg tablet 5 mg PO DAILY 08/21/24 08/21/24 Unknown History fluticasone furoate 50 1 ea inhalation DAILY 08/21/24 08/21/24 Unknown History mcg-vilanterol 25 mcg/dose inhalation powder gabapentin 250 mg/5 mL oral 100 mg PO BID 08/21/24 08/21/24 Unknown History solution insulin glargine 100 unit/mL 10 unit subcut DAILY 08/21/24 08/21/24 Unknown History subcutaneous solution insulin lispro 100 unit/mL 1 sliding scale dose subcut 08/21/24 08/21/24 Unknown History subcutaneous pen USEASDIRECTD lansoprazole 30 mg capsule,delayed 30 mg PO DAILY 08/21/24 08/21/24 Unknown History release lidocaine 4 % topical patch 1 patch topical DAILY PRN Back Pain 08/21/24 08/21/24 Unknown History lidocaine 4 % topical patch 1 patch topical DAILY PRN SHOULDER 08/21/24 08/21/24 Unknown History PAIN metoclopramide HCl 10 mg tablet 10 mg PO Q6H PRN GERD 08/21/24 08/21/24 Unknown History multivitamin 1 tab PO DAILY 08/21/24 08/21/24 Unknown History polyethylene glycol 3350 17 gram 17 g PO DAILY 08/21/24 08/21/24 Unknown History oral powder packet prednisone 5 mg tablet 5 mg PO DAILY 08/21/24 08/21/24 Unknown History rosuvastatin 20 mg tablet 40 mg PO DAILY 08/21/24 08/21/24 Unknown History sennosides 8.8 mg/5 mL oral syrup 8.8 mg PO BID PRN Constipation 08/21/24 08/21/24 Unknown History (senna) tacrolimus 0.5 mg capsule, 0.5 mg PO Q12H 08/21/24 08/21/24 Unknown History immediate-release Exam Height,Weight and Vital Signs: Height 5 ft 11 in Weight 71.1 kg Last Vital Signs Temp 97.4 F 08/25/24 11:43 Pulse 58 08/25/24 11:43 Resp 17 08/25/24 11:43 BP 138/51 L 08/25/24 11:43 Pulse Ox 93 08/25/24 11:43 O2 Del Method Room Air 08/25/24 11:43 Pertinent Lab Results Pertinent Lab Results: Laboratory Tests 08/20/24 08/20/24 08/20/24 18:14 18:15 21:58 WBC 6.4 RBC 3.86 L Hgb 9.2 L Hct 29.8 L MCV 77.2 L MCH 23.8 L MCHC 30.9 L RDW 15.8 Plt Count 292 MPV 10.4 Immature Gran % (Auto) 0.2 Neut % (Auto) 47.4 Lymph % (Auto) 36.9 [place] % (Auto) 8.6 Eos % (Auto) 6.4 H Baso % (Auto) 0.5 Lymph # (Auto) 2.4 [place] # (Auto) 0.6 Eos # (Auto) 0.4 Baso # (Auto) 0.0 Abs Immat Gran (auto) 0.01 Absolute Neuts (auto) 3.0 Absolute Nucleated RBC 0.000 Nucleated RBC % (auto) 0.0 PT 14.9 H INR 1.3 H APTT Sodium 133 L Potassium 4.3 Chloride 102 Carbon Dioxide 28 Anion Gap 7 L BUN 11 Creatinine 1.00 Estim Creat Clear Calc 79.4 Estimated GFR > 60 POC Glucose Random Glucose 237 H Calcium 9.1 Magnesium 1.6 Total Bilirubin 0.3 Direct Bilirubin 0.2 AST 121 H ALT 100 H Alkaline Phosphatase 188 H Troponin I High Sens 3.9 C-Reactive Protein 0.31 B-Natriuretic Peptide 47 Total Protein 8.1 H Albumin 3.2 L Lipase 28 Urine Color Yellow Urine Appearance Turbid Urine pH 8.5 Ur Specific [place] 1.020 Urine Protein Trace Urine Glucose (UA) 100 H Urine Ketones Negative Urine Blood Negative Urine Nitrite Negative Ur Leukocyte Esterase Negative Urine RBC Urine WBC Ur Squamous Epith Cells Urine Bacteria Hyaline Casts Gastric Occult Blood Influenza Type A (PCR) NEGATIVE Influenza Type B (PCR) NEGATIVE RSV RNA Qual (PCR) NEGATIVE SARS-CoV-2 RNA (RT-PCR) POSITIVE A Blood Type Antibody Screen 08/21/24 08/21/24 08/21/24 09:03 11:10 16:46 WBC RBC Hgb Hct MCV MCH MCHC RDW Plt Count MPV Immature Gran % (Auto) Neut % (Auto) Lymph % (Auto) [place] % (Auto) Eos % (Auto) Baso % (Auto) Lymph # (Auto) [place] # (Auto) Eos # (Auto) Baso # (Auto) Abs Immat Gran (auto) Absolute Neuts (auto) Absolute Nucleated RBC Nucleated RBC % (auto) PT INR APTT Sodium Potassium Chloride Carbon Dioxide Anion Gap BUN Creatinine Estim Creat Clear Calc Estimated GFR POC Glucose 169 H 207 H 199 H Random Glucose Calcium Magnesium Total Bilirubin Direct Bilirubin AST ALT Alkaline Phosphatase Troponin I High Sens C-Reactive Protein B-Natriuretic Peptide Total Protein Albumin Lipase Urine Color Urine Appearance Urine pH Ur Specific [place] Urine Protein Urine Glucose (UA) Urine Ketones Urine Blood Urine Nitrite Ur Leukocyte Esterase Urine RBC Urine WBC Ur Squamous Epith Cells Urine Bacteria Hyaline Casts Gastric Occult Blood Influenza Type A (PCR) Influenza Type B (PCR) RSV RNA Qual (PCR) SARS-CoV-2 RNA (RT-PCR) Blood Type Antibody Screen 08/21/24 08/22/24 08/22/24 20:58 07:38 11:57 WBC RBC Hgb Hct MCV MCH MCHC RDW Plt Count MPV Immature Gran % (Auto) Neut % (Auto) Lymph % (Auto) [place] % (Auto) Eos % (Auto) Baso % (Auto) Lymph # (Auto) [place] # (Auto) Eos # (Auto) Baso # (Auto) Abs Immat Gran (auto) Absolute Neuts (auto) Absolute Nucleated RBC Nucleated RBC % (auto) PT INR APTT Sodium Potassium Chloride Carbon Dioxide Anion Gap BUN Creatinine Estim Creat Clear Calc Estimated GFR POC Glucose 203 H 171 H 176 H Random Glucose Calcium Magnesium Total Bilirubin Direct Bilirubin AST ALT Alkaline Phosphatase Troponin I High Sens C-Reactive Protein B-Natriuretic Peptide Total Protein Albumin Lipase Urine Color Urine Appearance Urine pH Ur Specific [place] Urine Protein Urine Glucose (UA) Urine Ketones Urine Blood Urine Nitrite Ur Leukocyte Esterase Urine RBC Urine WBC Ur Squamous Epith Cells Urine Bacteria Hyaline Casts Gastric Occult Blood Influenza Type A (PCR) Influenza Type B (PCR) RSV RNA Qual (PCR) SARS-CoV-2 RNA (RT-PCR) Blood Type Antibody Screen 08/22/24 08/22/24 08/23/24 17:14 21:32 18:54 WBC 6.2 RBC 5.08 D Hgb 11.9 L D Hct 38.2 L D MCV 75.2 L MCH 23.4 L MCHC 31.2 RDW 15.9 Plt Count 339 MPV 10.9 Immature Gran % (Auto) 0.2 Neut % (Auto) 38.2 L Lymph % (Auto) 39.2 [place] % (Auto) 13.2 H Eos % (Auto) 8.2 H Baso % (Auto) 1.0 Lymph # (Auto) 2.4 [place] # (Auto) 0.8 Eos # (Auto) 0.5 H Baso # (Auto) 0.1 Abs Immat Gran (auto) 0.01 Absolute Neuts (auto) 2.4 Absolute Nucleated RBC 0.000 Nucleated RBC % (auto) 0.0 PT INR APTT Sodium 140 Potassium 4.7 Chloride 103 Carbon Dioxide 26 Anion Gap 16 BUN 14 Creatinine 0.86 Estim Creat Clear Calc 92.4 Estimated GFR > 60 POC Glucose 246 H 173 H Random Glucose 192 H Calcium 9.4 Magnesium Total Bilirubin Direct Bilirubin AST ALT Alkaline Phosphatase Troponin I High Sens C-Reactive Protein B-Natriuretic Peptide Total Protein Albumin Lipase Urine Color Urine Appearance Urine pH Ur Specific [place] Urine Protein Urine Glucose (UA) Urine Ketones Urine Blood Urine Nitrite Ur Leukocyte Esterase Urine RBC Urine WBC Ur Squamous Epith Cells Urine Bacteria Hyaline Casts Gastric Occult Blood Influenza Type A (PCR) Influenza Type B (PCR) RSV RNA Qual (PCR) SARS-CoV-2 RNA (RT-PCR) Blood Type Antibody Screen 08/23/24 08/24/24 08/24/24 19:09 03:21 07:42 WBC 7.7 RBC 4.75 Hgb 11.3 L Hct 36.4 L MCV 76.6 L MCH 23.8 L MCHC 31.0 RDW 16.1 H Plt Count 379 MPV 11.1 Immature Gran % (Auto) 0.3 Neut % (Auto) 36.8 L Lymph % (Auto) 43.7 H [place] % (Auto) 11.9 H Eos % (Auto) 6.8 H Baso % (Auto) 0.5 Lymph # (Auto) 3.4 [place] # (Auto) 0.9 Eos # (Auto) 0.5 H Baso # (Auto) 0.0 Abs Immat Gran (auto) 0.02 Absolute Neuts (auto) 2.8 Absolute Nucleated RBC 0.000 Nucleated RBC % (auto) 0.0 PT 16.4 H INR 1.4 H APTT 24.2 L Sodium 140 Potassium 3.5 D Chloride 101 Carbon Dioxide 28 Anion Gap 15 BUN 18 H Creatinine 0.83 Estim Creat Clear Calc 95.7 Estimated GFR > 60 POC Glucose Random Glucose 184 H Calcium 9.3 Magnesium 1.7 Total Bilirubin 0.5 Direct Bilirubin 0.2 AST 68 H ALT 75 H Alkaline Phosphatase 205 H Troponin I High Sens C-Reactive Protein B-Natriuretic Peptide Total Protein 8.8 H Albumin 3.3 L Lipase 9 Urine Color Yellow Urine Appearance Cloudy Urine pH 8.0 Ur Specific [place] 1.025 Urine Protein 30 (1+) H Urine Glucose (UA) Negative Urine Ketones Trace Urine Blood Negative Urine Nitrite Negative Ur Leukocyte Esterase Negative Urine RBC 0-2 Urine WBC 0-5 Ur Squamous Epith Cells 0-2 Urine Bacteria None Seen Hyaline Casts 0-2 Gastric Occult Blood POSITIVE Influenza Type A (PCR) Influenza Type B (PCR) RSV RNA Qual (PCR) SARS-CoV-2 RNA (RT-PCR) Blood Type O Positive Antibody Screen NEGATIVE 08/24/24 08/24/24 08/24/24 08:46 12:32 17:37 WBC RBC Hgb Hct MCV MCH MCHC RDW Plt Count MPV Immature Gran % (Auto) Neut % (Auto) Lymph % (Auto) [place] % (Auto) Eos % (Auto) Baso % (Auto) Lymph # (Auto) [place] # (Auto) Eos # (Auto) Baso # (Auto) Abs Immat Gran (auto) Absolute Neuts (auto) Absolute Nucleated RBC Nucleated RBC % (auto) PT INR APTT Sodium Potassium Chloride Carbon Dioxide Anion Gap BUN Creatinine Estim Creat Clear Calc Estimated GFR POC Glucose 189 H 146 H 163 H Random Glucose Calcium Magnesium Total Bilirubin Direct Bilirubin AST ALT Alkaline Phosphatase Troponin I High Sens C-Reactive Protein B-Natriuretic Peptide Total Protein Albumin Lipase Urine Color Urine Appearance Urine pH Ur Specific [place] Urine Protein Urine Glucose (UA) Urine Ketones Urine Blood Urine Nitrite Ur Leukocyte Esterase Urine RBC Urine WBC Ur Squamous Epith Cells Urine Bacteria Hyaline Casts Gastric Occult Blood Influenza Type A (PCR) Influenza Type B (PCR) RSV RNA Qual (PCR) SARS-CoV-2 RNA (RT-PCR) Blood Type Antibody Screen 08/24/24 08/25/24 08/25/24 20:21 06:31 09:40 WBC 5.9 RBC 4.25 L Hgb 10.1 L Hct 32.8 L MCV 77.2 L MCH 23.8 L MCHC 30.8 L RDW 16.2 H Plt Count 294 MPV 11.0 Immature Gran % (Auto) Neut % (Auto) Lymph % (Auto) [place] % (Auto) Eos % (Auto) Baso % (Auto) Lymph # (Auto) [place] # (Auto) Eos # (Auto) Baso # (Auto) Abs Immat Gran (auto) Absolute Neuts (auto) Absolute Nucleated RBC 0.000 Nucleated RBC % (auto) 0.0 PT INR APTT Sodium 139 Potassium 3.4 Chloride 104 Carbon Dioxide 24 Anion Gap 14 BUN 16 Creatinine 0.88 Estim Creat Clear Calc 85.2 Estimated GFR > 60 POC Glucose 116 H 119 H Random Glucose 118 H Calcium 9.1 Magnesium Total Bilirubin Direct Bilirubin AST ALT Alkaline Phosphatase Troponin I High Sens C-Reactive Protein B-Natriuretic Peptide Total Protein Albumin Lipase Urine Color Urine Appearance Urine pH Ur Specific [place] Urine Protein Urine Glucose (UA) Urine Ketones Urine Blood Urine Nitrite Ur Leukocyte Esterase Urine RBC Urine WBC Ur Squamous Epith Cells Urine Bacteria Hyaline Casts Gastric Occult Blood Influenza Type A (PCR) Influenza Type B (PCR) RSV RNA Qual (PCR) SARS-CoV-2 RNA (RT-PCR) Blood Type Antibody Screen 08/25/24 12:08 WBC RBC Hgb Hct MCV MCH MCHC RDW Plt Count MPV Immature Gran % (Auto) Neut % (Auto) Lymph % (Auto) [place] % (Auto) Eos % (Auto) Baso % (Auto) Lymph # (Auto) [place] # (Auto) Eos # (Auto) Baso # (Auto) Abs Immat Gran (auto) Absolute Neuts (auto) Absolute Nucleated RBC Nucleated RBC % (auto) PT INR APTT Sodium Potassium Chloride Carbon Dioxide Anion Gap BUN Creatinine Estim Creat Clear Calc Estimated GFR POC Glucose 134 H Random Glucose Calcium Magnesium Total Bilirubin Direct Bilirubin AST ALT Alkaline Phosphatase Troponin I High Sens C-Reactive Protein B-Natriuretic Peptide Total Protein Albumin Lipase Urine Color Urine Appearance Urine pH Ur Specific [place] Urine Protein Urine Glucose (UA) Urine Ketones Urine Blood Urine Nitrite Ur Leukocyte Esterase Urine RBC Urine WBC Ur Squamous Epith Cells Urine Bacteria Hyaline Casts Gastric Occult Blood Influenza Type A (PCR) Influenza Type B (PCR) RSV RNA Qual (PCR) SARS-CoV-2 RNA (RT-PCR) Blood Type Antibody Screen Airway Heart: RRR Lungs: CTA Assessment and Plan Assessment Anesthesia Assessment: Anesthesia Plan Discussed and Chart Reviewed Final Anesthetic Review Family History of Problems with Anesthesia: No History of Problems with Anesthesia: No NPO: Yes ASA Class: III and Emergency Final Preanesthetic Review: Meds/Allgs Chart Reviewed, Consent Obtained/Reviewed and Anes Risks/Benef Reviewed Patient Risk: Intermediate Procedure Risk: Low Anesthetic Plan Anesthetic Plan: MAC: Disposition: Standard PACU
--- NOTE | 2024-08-25 12:28 | MHC.CLN ---
NUTRITION CURRENTLY NPO WITH TUBE FEEDING ON HOLD. HAD UPPER ENDOSCOPY TODAY. RECEIVES HOME TUBE FEEDING VIA G-J TUBE. [place] [facility] [place] WITH REFERENCE TO PUREE/NECTAR DIET AND TF NEPRO. WHEN ABLE TO RESUME TUBE FEEDING, RECOMMEND MAX GOAL RATE NEPRO AT 45 ML/HOUR TO PROVIDE 1944 KCALS (27.3 KCALS/KG), 87 G PROTEIN (1.22 G/KG), 785 ML FREE WATER FROM FORMULA. FLUSH 240 ML Q 6 HOURS TO PROVIDES TOTAL FREE WATER 1745 ML (24.5 ML/KG). FOLLOW FOR TF TOLERANCE AND DIET ADVANCEMENT. SEE CLINICAL NUTRITION ASSESSMENT 08/25/24.
[2024-08-25 12:41] LABS: Glucose, Whole Blood 183 mg/dL (60-115)
--- NOTE | 2024-08-25 12:41 | P.BOP_ITS ---
Brief Operative Note Date of Service: 08/25/24 Pre-op diagnosis: GI bleed Post-op diagnosis: same Procedure: EGD Surgeon: Armani Luis MD Anesthesia: MAC Was an Machine Setter Automatic used for this Procedure?: No Estimated blood loss (mL): 2 Pathology: other Condition: stable Disposition: PACU
--- NOTE | 2024-08-25 12:42 | PM.EVENT ---
Event Note Date of Service: 08/25/24 Event Note: EGD dictated EGD shows erosive esophagitis with no active bleeding. antral biopsies obtained g-j tube in good position Rec: advance diet f/u bx results continue ppi Time Spent With Patient Time: Total time managing care of this patient today ____ minutes.
[2024-08-25 12:43] LABS: Glucose, Whole Blood 165 mg/dL (60-115)
[2024-08-25 12:45] LABS: Glucose, Whole Blood 175 mg/dL (60-115)
[2024-08-25 12:46] LABS: Glucose, Whole Blood 177 mg/dL (60-115)
--- NOTE | 2024-08-25 13:59 | HO.POSTANES ---
Post Anesthesia Evaluation Post Anesthesia Evaluation Date of Service: 08/25/24 Vital Signs: Vital Signs Temp Pulse Resp BP Pulse Ox O2 Del Method O2 Flow Rate 08/25/24 13:30 84 18 142/76 H 100 Room Air 08/25/24 13:15 97 F 84 18 133/76 100 Room Air 08/25/24 13:00 82 18 131/68 100 Room Air 08/25/24 12:45 97 F 84 18 118/64 100 Simple Mask 6 08/25/24 11:43 97.4 F 58 17 138/51 L 93 Room Air 08/25/24 07:50 97.9 F 85 18 118/58 L 98 Room Air 08/25/24 05:35 97.8 F 69 18 110/43 L 98 Room Air Anesthesia: Monitored Mental Status: Awake Pain Control: Satisfactory Nausea/Vomiting: None Hydration: Adequate Anesthesia-Related Issues: No Anes. Related Issues
--- NOTE | 2024-08-25 14:24 | OP_ITS ---
DATE OF SERVICE: 08/25/2024 SURGEON: Armani Luis MD INDICATIONS: Upper GI bleeding. PREOPERATIVE DIAGNOSIS: POSTOPERATIVE DIAGNOSIS: PROCEDURE PERFORMED: Upper endoscopy with biopsy. ESTIMATED BLOOD LOSS: COMPLICATIONS: ANESTHESIA: Monitored anesthesia care. ASSISTANTS: SPECIMENS: DESCRIPTION OF PROCEDURE: A history and physical was performed. The risks and benefits of the procedure were explained to the patient and informed consent was obtained. The patient was placed in the left lateral decubitus position. The Olympus video gastroscope was introduced into the esophagus, stomach, and duodenum. Examination was performed and the scope was removed. He tolerated the procedure well and was returned to recovery area in stable condition. FINDINGS: Esophagus: There was erosive esophagitis involving the distal 10 cm of the esophagus with no active bleeding. Stomach: The stomach showed no blood. The gastrojejunostomy tube was identified in a good position. There was a small superficial ulceration at the site of the feeding tube entering the pylorus, but no active bleeding. The bulb and proximal 2nd portion were normal. Biopsies were obtained from the antrum of the stomach. IMPRESSION: Erosive esophagitis. RECOMMENDATIONS: 1. Continue proton pump inhibitor. 2. Advance diet. 3. Follow up the biopsy results. MD JEFFREY Sorto/FOTRINOL / [id number]
--- NOTE | 2024-08-25 15:12 | MHC.CM.PN ---
Per rounds, pt. to have EDG today, [facility] has accepted pt. for STR when he is ready, CM to follow for DC needs.
--- NOTE | 2024-08-25 15:27 | HO.WOUND ---
Wound Consult: Initial 63yr old? [place] [facility] [place] - See progress notes and H&P for detailed history.? Wound consult placed for skin abrasions throughout body.? Patient agreeable to assessment and photo documentation.? He reports sometimes medications help sometimes, he has not been given a medical reason for the rash according to patient statement. TT with Dr. Urbina unclear etiology - would recommend dermatology outpt follow up and may consider differential diagnosis such as scabies vs atypical eczema. Of note the patient does have dark pigmented skin and is makes skin irregularities less obvious. There are however raised scaly papules in linear clusters noted throughout his body, with reported intense itching at times. Sacrum Right Buttock Left Leg Etiology: ??Unknown Etiology: Consider skin scraping for diagnosis: questions scabies vs atypical eczema Wound Bed: various areas throughout his body noted for raised scaly papules in linear clusters and appears to be burrows Drainage / Odor: scant serous drainage noted Edges: attached ? Margaret wound: intact dry tissue ? No Induration, Fluctuance or Warmth noted Pain: intense itching reported at times Goals of Treatment: ? Defer to provider for treatment - Skin scraping is diagnostic for scabies. Recommendations: 1. Turn and Reposition every 2 hours and as needed for patient comfort.? Use pillows or wedges to support off loading positions. 2. Off Load all bony prominences with use of pillows and heel boots if needed.? Apply Preventative foams where needed. ? 3. Monitor for incontinence and moisture control, use barrier creams when needed for prevention and treatment. 4. Provide adequate and supplemental nutrition.? 5. Order low air loss mattress. 6. When applicable maintain blood glucose levels per Providers order. 7. Rash throughout body - Defer to provider - provider considering treatment for scabies. May treat open wounds with foam dressing for moist wound healing if open and weeping. Re-consult wound care Nurse for wound deterioration or wound changes.
--- NOTE | 2024-08-25 15:29 | HO.PM.IMPN ---
Subjective Subjective Date of Service: 08/25/24 Interval History: no abd pain no further hematemesis/coffee-ground emesis EGD showed erosive esophagitis denies cough or dyspnea Review of Systems Review of Systems: Yes all other systems are reviewed and are negative Physical Exam Vital Signs: Vital Signs: Last Vital Signs Temp 97 F 08/25/24 13:15 Pulse 84 08/25/24 13:30 Resp 18 08/25/24 13:30 BP 142/76 H 08/25/24 13:30 Pulse Ox 100 08/25/24 13:30 O2 Del Method Room Air 08/25/24 13:30 O2 Flow Rate 6 08/25/24 12:45 BMI result Body Mass Index 21.9 Gen: in no acute distress HEENT: sclera anicteric, moist mucus membranes Neck: supple Lungs: clear to auscultation bilaterally Heart: regular rate and rhythm, no murmurs Abd: soft, non-tender, non-distended, GJ tube site intact Ext: no edema Skin: warm/well-perfused Neuro: alert and oriented x3, L hemiparesis Psych: appropriate affect Objective Data Active Medications Acetaminophen (Acetaminophen 325 Mg Tablet) 650 mg G-TUBE Q6H PRN PRN Reason: Pain, Mild (Pain Scale 1-3), fever or headache Last Admin: 08/24/24 19:38 Dose: 650 mg Documented By: MARCELLA Apixaban (Apixaban 5 Mg Tablet) 5 mg PO BID [facility] Last Admin: 08/24/24 09:12 Dose: Not Given Documented By: ROMY Non-Admin Reason: NPO Aspirin (Aspirin 81 Mg Tab.Chew) 81 mg PO DAILY [facility] Last Admin: 08/24/24 09:10 Dose: Not Given Documented By: ROMY Non-Admin Reason: NPO Atorvastatin Calcium (Atorvastatin Calcium 80 Mg Tablet) 80 mg G-TUBE DAILY [facility] Last Admin: 08/25/24 09:40 Dose: 80 mg Documented By: DARA Bisacodyl (Bisacodyl 10 Mg Supp.Rect) 10 mg [place] DAILY PRN PRN Reason: Constipation Carvedilol (Carvedilol 6.25 Mg Tablet) 6.25 mg G-TUBE BID [facility]; Protocol Last Admin: 08/25/24 09:40 Dose: 6.25 mg Documented By: DARA Diphenhydramine HCl (Diphenhydramine Hcl 50 Mg/Ml Vial) 25 mg IVPUSH Q4H PRN PRN Reason: Itching Last Admin: 08/24/24 20:52 Dose: 25 mg Documented By: MARCELLA Doxazosin Mesylate (Doxazosin Mesylate 2 Mg Tablet) 2 mg G-TUBE DAILY [facility]; Protocol Last Admin: 08/25/24 09:40 Dose: 2 mg Documented By: DARA Finasteride (Finasteride 5 Mg Tablet) 5 mg PO DAILY [facility] Last Admin: 08/25/24 09:40 Dose: 5 mg Documented By: DARA Gabapentin (Gabapentin 100 Mg Capsule) 100 mg G-TUBE BID [facility] Last Admin: 08/25/24 09:40 Dose: 100 mg Documented By: DARA Insulin Glargine (Insulin Glargine,Hum.Rec.Anlog 100 Unit/Ml 10 Ml Vial) 10 unit SUBCUT DAILY [facility] Last Admin: 08/25/24 09:39 Dose: 10 unit Documented By: DARA Insulin Human Lispro (Insulin Lispro 100 Unit/Ml 3 Ml Vial) 0 unit SUBCUT QIDACHS [facility]; Protocol Last Admin: 08/25/24 12:17 Dose: Not Given Documented By: DARA Non-Admin Reason: No Insulin Coverage Lidocaine (Lidocaine 4 % Patch Adh..Patch) 1 patch TRANSDERMA DAILY PRN; Protocol PRN Reason: Back Pain Lidocaine (Lidocaine 4 % Patch Adh..Patch) 1 patch TRANSDERMA DAILY PRN; Protocol PRN Reason: SHOULDER PAIN Magnesium Hydroxide (Milk Of Magnesia 30 Ml Oral.Susp) 30 ml G-TUBE DAILY PRN PRN Reason: Constipation Metoclopramide HCl (Metoclopramide Hcl 10 Mg Tablet) 10 mg G-TUBE Q6H PRN PRN Reason: GERD Multivitamins/Minerals (Multivitamin With Minerals Liq 15 Ml Liquid) 15 ml G-TUBE DAILY [facility] Last Admin: 08/25/24 09:39 Dose: 15 ml Documented By: DARA Omeprazole (Omeprazole/Na Bicarb Oral Susp 20 Mg/10 Ml Ud Cup) 20 mg PO BID@0630,1630 [facility] Ondansetron HCl (Ondansetron Hcl 4 Mg/2 Ml Vial) 4 mg IVPUSH Q8H PRN PRN Reason: Nausea and Vomiting Last Admin: 08/24/24 19:39 Dose: 4 mg Documented By: MARCELLA Pantoprazole Sodium (Pantoprazole Sodium 40 Mg/10 Ml Vial) 40 mg IVPUSH BID@0630,1630 [facility] Last Admin: 08/25/24 05:41 Dose: 40 mg Documented By: MARCELLA Polyethylene Glycol (Polyethylene Glycol 3350 17 Gm Powd.Pack) 17 gm G-TUBE DAILY [facility] Last Admin: 08/25/24 09:50 Dose: 17 gm Documented By: DARA Prednisone (Prednisone 5 Mg Tablet) 5 mg G-TUBE DAILY [facility] Last Admin: 08/25/24 09:40 Dose: 5 mg Documented By: DARA Senna (Sennosides Oral Syrup 8.8 Mg/5 Ml) 8.8 mg G-TUBE BID PRN PRN Reason: Constipation Sodium Chloride (0.9 % Sodium Chloride Flush 3 Ml Syringe) 3 ml IVFLUSH QSHIFT [facility] Last Admin: 08/25/24 09:43 Dose: Not Given Documented By: DARA Non-Admin Reason: IV Running Tacrolimus (Tacrolimus 0.5 Mg Capsule) 0.5 mg G-TUBE BID [facility] Last Admin: 08/25/24 09:40 Dose: 0.5 mg Documented By: DARA Tenofovir Disoproxil Fumarate (Tenofovir Disoproxil Fumarate 300 Mg Tablet) 300 mg G-TUBE DAILY [facility] Last Admin: 08/25/24 09:40 Dose: 300 mg Documented By: DARA Labs 08/25/24 06:31 08/25/24 06:31 Labs: Laboratory Results - last 24 hr 08/22/24 08/22/24 08/22/24 11:57 17:14 21:32 MCV MCH MCHC RDW Plt Count MPV Absolute Nucleated RBC Nucleated RBC % (auto) Anion Gap Estim Creat Clear Calc Estimated GFR POC Glucose 176 H 246 H 173 H Random Glucose Calcium 08/23/24 08/23/24 08/23/24 08:51 11:58 16:51 MCV MCH MCHC RDW Plt Count MPV Absolute Nucleated RBC Nucleated RBC % (auto) Anion Gap Estim Creat Clear Calc Estimated GFR POC Glucose 177 H 175 H 165 H Random Glucose Calcium 08/23/24 08/24/24 08/24/24 18:38 17:37 20:21 MCV MCH MCHC RDW Plt Count MPV Absolute Nucleated RBC Nucleated RBC % (auto) Anion Gap Estim Creat Clear Calc Estimated GFR POC Glucose 183 H 163 H 116 H Random Glucose Calcium 08/25/24 08/25/24 08/25/24 06:31 09:40 12:08 MCV 77.2 L MCH 23.8 L MCHC 30.8 L RDW 16.2 H Plt Count 294 MPV 11.0 Absolute Nucleated RBC 0.000 Nucleated RBC % (auto) 0.0 Anion Gap 14 Estim Creat Clear Calc 85.2 Estimated GFR > 60 POC Glucose 119 H 134 H Random Glucose 118 H Calcium 9.1 Assessment and Plan (1) Coffee ground emesis: Status: Acute (2) Acute upper gastrointestinal bleeding: Status: Acute Plan d2 for 63yo M sent in from [facility] with PMHx CVA/L hemiparesis, dysphagia with GJ tube, PVD, ESRD s/p kidney transplant, HCV cirrhosis s/p liver transplant, DM2, pAF on apixaban, hx polysubstance abuse presented to ED 08/20 with dizziness, N/V, chest pain; had tested positive for Covid-19 08/09 family appealed discharge back to [facility] and requested placement elsehwere admitted for cofee-ground emesis, CT bleeding scan negative for acute bleed, H+H stable acute UGIB due to erosive esophagitis - H+H stable, continue PPI - follow up with GI in 2 wk for biopsy results - resume apixaban tomorrow - resume tube feeds pAF - continue carvedilol; apixaban on hold tube feeding - appreciate Nutrition recommendations; resume tube feeds - outpt gastric emptying study ordered by [facility] [place] should be rescheduled - also takes pureed solids/nectar liquids rash - atypical eczema vs scabies. Very itchy. Will treat presumptively for scabies with ivermectin 200 mcg/kg x1 now; repeat in 7d recent Covid-19 - over 10 days since testing positive and no symptoms; d/c isolation hx kidney + liver transplant - continue tacrolimus + prednisone hx ?HBV - continue tenofovir prostatism - doxazosin, finasteride hx CVA - hold ASA, continue statin DM2 - basal-bolus insulin VTE ppx - SCDs dispo - accepted at [facility], may be ready tomorrow In my clinical judgment, the patient requires continued inpatient hospitalization for the following reasons: tube feeding advancement Total time managing care of this patient today: 40 minutes. Quality Stroke Does the patient have a stroke diagnosis?: No VTE Prior VTE?: No VTE Risk Level:: Medical - moderate - high VTE Device Contraindication: N/A - Device Ordered VTE Drug Contraindication: Treatment Not Indicated
[2024-08-25] MEDS: 0.9 % Sodium Chloride Flush 3 ML SYRINGE IVFLUSH ×2 (16:58→20:51)
[2024-08-25] MEDS: diphenhydrAMINE HCL 50 MG/ML VIAL 25 MG IVPUSH (20:50)
[2024-08-25 21:40] LABS: Glucose, Whole Blood 111 mg/dL (60-115)
[2024-08-26 03:27] VITALS: BP 128/58; PULSE 77; RESP 16; TEMP 36.5; O2SAT 95
[2024-08-26] MEDS: Pantoprazole Sodium 40 MG/10 ML VIAL IVPUSH (05:51)
[2024-08-26 06:27] LABS: Hematocrit 31.4 % (42.0-52.0); Hemoglobin 9.6 g/dl (14.0-18.0); Mean Corpuscular HGB Conc 30.6 g/dl (31.0-36.0); Mean Corpuscular Hemoglobin 23.5 pg (27.0-33.0); Mean Corpuscular Volume 76.8 fL (80.0-98.0); Mean Platelet Volume 10.8 fL (9.4-12.4); Platelet Count 307 X10*3/uL (160-400); Red Blood Count 4.09 X10*6/uL (4.60-5.80); Red Cell Distribution Width 16.2 % (11.0-16.0); White Blood Count 6.6 X10*3/uL (4.8-10.8)
[2024-08-26 07:26] LABS: Glucose, Whole Blood 174 mg/dL (60-115)
[2024-08-26 07:52] VITALS: BP 142/59; PULSE 84; RESP 17; TEMP 36.4; O2SAT 95
--- NOTE | 2024-08-26 08:13 | HO.POSTANES ---
Post Anesthesia Evaluation Post Anesthesia Evaluation Date of Service: 08/26/24 Vital Signs: Vital Signs Temp Pulse Resp BP Pulse Ox O2 Del Method 08/26/24 07:52 97.5 F 84 17 142/59 H 95 Room Air 08/26/24 03:27 97.7 F 77 16 128/58 L 95 Room Air 08/25/24 23:14 97.3 F 78 16 129/61 96 Room Air Anesthesia: Monitored Mental Status: Awake Pain Control: Satisfactory Nausea/Vomiting: None Hydration: Adequate Anesthesia-Related Issues: No Anes. Related Issues
[2024-08-26] MEDS: Atorvastatin Calcium 80 MG TABLET G-TUBE (09:00)
[2024-08-26] MEDS: carvediloL 6.25 MG TABLET G-TUBE ×2 (09:01→20:22)
[2024-08-26] MEDS: Multivitamin with Minerals Liq 15 ML LIQUID G-TUBE (09:01)
[2024-08-26] MEDS: Insulin Glargine,Hum.rec.anlog 100 UNIT/ML 10 ML VIAL 10 UNIT SUBCUT (09:01)
[2024-08-26] MEDS: Tenofovir Disoproxil Fumarate 300 MG TABLET G-TUBE (09:01)
[2024-08-26] MEDS: Tacrolimus 0.5 MG CAPSULE G-TUBE ×2 (09:01→20:23)
[2024-08-26] MEDS: Finasteride 5 MG TABLET PO (09:01)
[2024-08-26] MEDS: predniSONE 5 MG TABLET G-TUBE (09:01)
[2024-08-26] MEDS: Gabapentin 100 MG CAPSULE G-TUBE ×2 (09:01→20:22)
[2024-08-26] MEDS: 0.9 % Sodium Chloride Flush 3 ML SYRINGE IVFLUSH ×3 (09:02→20:23)
[2024-08-26] MEDS: Doxazosin Mesylate 2 MG TABLET G-TUBE (09:02)
[2024-08-26] MEDS: Insulin Lispro 100 UNIT/ML 3 ML VIAL SUBCUT ×4 (09:03→22:50)
[2024-08-26] MEDS: diphenhydrAMINE HCL 50 MG/ML VIAL 25 MG IVPUSH ×2 (09:03→20:22)
[2024-08-26] MEDS: polyethylene glycoL 3350 17 GM POWD.PACK G-TUBE (09:03)
--- NOTE | 2024-08-26 11:10 | MHC.CLN ---
F/U RECEIVES HOME TUBE FEEDING VIA G-J TUBE. RECOMMEND TUBE FEEDING MAX GOAL RATE NEPRO AT 45 ML/HOUR CONTINUOUS. PROVIDES 1944 KCALS (27.3 KCALS/KG), 87 G PROTEIN (1.22 G/KG), 785 ML FREE WATER FROM FORMULA. FLUSH 240 ML Q 6 HOURS TO PROVIDES TOTAL FREE WATER 1745 ML (24.5 ML/KG). HAD NEPRO FORMULA PRIOR TO THIS ADM. PATIENT IS LIVER AND KIDNEY TRANSPLANT RECIPIENT. DIET=PUREE WITH NECTAR LIQUIDS. ATE 100% AT BREAKFAST TODAY. MONITOR PO INTAKE AND ADJUST TUBE FEED APPROPRIATE. FOLLOW FOR TF TOLERANCE AND DIET ADVANCEMENT.
[2024-08-26 11:38] LABS: Glucose, Whole Blood 203 mg/dL (60-115)
[2024-08-26 11:49] VITALS: BP 132/65; PULSE 78; RESP 18; TEMP 36.4; O2SAT 96
--- NOTE | 2024-08-26 12:49 | HO.PM.IMPN ---
Subjective Subjective Date of Service: 08/26/24 Interval History: tolerating TFs hungry no abd pain no N/V no hematemesis very itchy rash on buttock and legs Review of Systems Review of Systems: Yes all other systems are reviewed and are negative Physical Exam Vital Signs: Vital Signs: Last Vital Signs Temp 97.6 F 08/26/24 11:49 Pulse 78 08/26/24 11:49 Resp 18 08/26/24 11:49 BP 132/65 08/26/24 11:49 Pulse Ox 96 08/26/24 11:49 O2 Del Method Room Air 08/26/24 11:49 O2 Flow Rate 6 08/25/24 12:45 BMI result Body Mass Index 21.9 Gen: in no acute distress HEENT: sclera anicteric, moist mucus membranes Neck: supple Lungs: clear to auscultation bilaterally Heart: regular rate and rhythm, no murmurs Abd: soft, non-tender, non-distended, GJ tube site intact Ext: no edema Skin: warm/well-perfused, scaly papules in linear groups on legs + buttocks Neuro: alert and oriented x3, L hemiparesis Psych: appropriate affect Objective Data Active Medications Acetaminophen (Acetaminophen 325 Mg Tablet) 650 mg G-TUBE Q6H PRN PRN Reason: Pain, Mild (Pain Scale 1-3), fever or headache Last Admin: 08/24/24 19:38 Dose: 650 mg Documented By: MARCELLA Apixaban (Apixaban 5 Mg Tablet) 5 mg PO BID [facility] Last Admin: 08/24/24 09:12 Dose: Not Given Documented By: ROMY Non-Admin Reason: NPO Aspirin (Aspirin 81 Mg Tab.Chew) 81 mg PO DAILY [facility] Last Admin: 08/24/24 09:10 Dose: Not Given Documented By: ROMY Non-Admin Reason: NPO Atorvastatin Calcium (Atorvastatin Calcium 80 Mg Tablet) 80 mg G-TUBE DAILY [facility] Last Admin: 08/26/24 09:00 Dose: 80 mg Documented By: JENN Bisacodyl (Bisacodyl 10 Mg Supp.Rect) 10 mg [place] DAILY PRN PRN Reason: Constipation Carvedilol (Carvedilol 6.25 Mg Tablet) 6.25 mg G-TUBE BID [facility]; Protocol Last Admin: 08/26/24 09:01 Dose: 6.25 mg Documented By: JENN Diphenhydramine HCl (Diphenhydramine Hcl 50 Mg/Ml Vial) 25 mg IVPUSH Q4H PRN PRN Reason: Itching Last Admin: 08/26/24 09:03 Dose: 25 mg Documented By: JENN Doxazosin Mesylate (Doxazosin Mesylate 2 Mg Tablet) 2 mg G-TUBE DAILY [facility]; Protocol Last Admin: 08/26/24 09:02 Dose: 2 mg Documented By: JENN Finasteride (Finasteride 5 Mg Tablet) 5 mg PO DAILY [facility] Last Admin: 08/26/24 09:01 Dose: 5 mg Documented By: JENN Gabapentin (Gabapentin 100 Mg Capsule) 100 mg G-TUBE BID [facility] Last Admin: 08/26/24 09:01 Dose: 100 mg Documented By: JENN Insulin Glargine (Insulin Glargine,Hum.Rec.Anlog 100 Unit/Ml 10 Ml Vial) 10 unit SUBCUT DAILY [facility] Last Admin: 08/26/24 09:01 Dose: 10 unit Documented By: JENN Insulin Human Lispro (Insulin Lispro 100 Unit/Ml 3 Ml Vial) 0 unit SUBCUT QIDACHS [facility]; Protocol Last Admin: 08/26/24 12:11 Dose: 4 unit Documented By: JENN Lidocaine (Lidocaine 4 % Patch Adh..Patch) 1 patch TRANSDERMA DAILY PRN; Protocol PRN Reason: Back Pain Lidocaine (Lidocaine 4 % Patch Adh..Patch) 1 patch TRANSDERMA DAILY PRN; Protocol PRN Reason: SHOULDER PAIN Magnesium Hydroxide (Milk Of Magnesia 30 Ml Oral.Susp) 30 ml G-TUBE DAILY PRN PRN Reason: Constipation Metoclopramide HCl (Metoclopramide Hcl 10 Mg Tablet) 10 mg G-TUBE Q6H PRN PRN Reason: GERD Multivitamins/Minerals (Multivitamin With Minerals Liq 15 Ml Liquid) 15 ml G-TUBE DAILY [facility] Last Admin: 08/26/24 09:01 Dose: 15 ml Documented By: JENN Omeprazole (Omeprazole/Na Bicarb Oral Susp 20 Mg/10 Ml Ud Cup) 20 mg PO BID@0630,1630 [facility] Ondansetron HCl (Ondansetron Hcl 4 Mg/2 Ml Vial) 4 mg IVPUSH Q8H PRN PRN Reason: Nausea and Vomiting Last Admin: 08/24/24 19:39 Dose: 4 mg Documented By: MARCELLA Polyethylene Glycol (Polyethylene Glycol 3350 17 Gm Powd.Pack) 17 gm G-TUBE DAILY [facility] Last Admin: 08/26/24 09:03 Dose: 17 gm Documented By: JENN Prednisone (Prednisone 5 Mg Tablet) 5 mg G-TUBE DAILY [facility] Last Admin: 08/26/24 09:01 Dose: 5 mg Documented By: JENN Senna (Sennosides Oral Syrup 8.8 Mg/5 Ml) 8.8 mg G-TUBE BID PRN PRN Reason: Constipation Sodium Chloride (0.9 % Sodium Chloride Flush 3 Ml Syringe) 3 ml IVFLUSH QSHIFT [facility] Last Admin: 08/26/24 09:02 Dose: 3 ml Documented By: JENN Tacrolimus (Tacrolimus 0.5 Mg Capsule) 0.5 mg G-TUBE BID [facility] Last Admin: 08/26/24 09:01 Dose: 0.5 mg Documented By: JENN Tenofovir Disoproxil Fumarate (Tenofovir Disoproxil Fumarate 300 Mg Tablet) 300 mg G-TUBE DAILY [facility] Last Admin: 08/26/24 09:01 Dose: 300 mg Documented By: JENN Labs 08/26/24 05:43 08/25/24 06:31 Labs: Laboratory Results - last 24 hr 08/25/24 08/26/24 08/26/24 21:34 05:43 07:17 MCV 76.8 L MCH 23.5 L MCHC 30.6 L RDW 16.2 H Plt Count 307 MPV 10.8 Absolute Nucleated RBC 0.000 Nucleated RBC % (auto) 0.0 POC Glucose 111 174 H 08/26/24 11:34 MCV MCH MCHC RDW Plt Count MPV Absolute Nucleated RBC Nucleated RBC % (auto) POC Glucose 203 H Assessment and Plan (1) Coffee ground emesis: Status: Acute (2) Acute upper gastrointestinal bleeding: Status: Acute Plan d3 for 63yo M sent in from [facility] with PMHx CVA/L hemiparesis, dysphagia with GJ tube, PVD, ESRD s/p kidney transplant, HCV cirrhosis s/p liver transplant, DM2, pAF on apixaban, hx polysubstance abuse presented to ED 08/20 with dizziness, N/V, chest pain; had tested positive for Covid-19 08/09 family appealed discharge back to [facility] and requested placement elsehwere admitted for cofee-ground emesis, CT bleeding scan negative for acute bleed, H+H stable acute UGIB due to erosive esophagitis - H+H stable, continue PPI [change from IV to PO] - follow up with GI in 2 wk for biopsy results - resume apixaban today - resumed tube feeds pAF - continue carvedilol; resume apixaban tube feeding - appreciate Nutrition recommendations; resumed tube feeds - outpt gastric emptying study ordered by [facility] [place] should be rescheduled - also takes pureed solids/nectar liquids rash - atypical eczema vs scabies. Very itchy. Treated presumptively for scabies with ivermectin 200 mcg/kg x1 dose 08/25/24; repeat on 09/01/24 recent Covid-19 - over 10 days since testing positive and no symptoms; d/c'ed isolation hx kidney + liver transplant - continue tacrolimus + prednisone hx ?HBV - continue tenofovir prostatism - doxazosin, finasteride hx CVA - continue statin; d/c ASA [apixaban should be sufficient] DM2 - basal-bolus insulin VTE ppx - SCDs dispo - accepted at [facility] In my clinical judgment, the patient requires continued inpatient hospitalization for the following reasons: placement Total time managing care of this patient today: 35 minutes. Quality Stroke Does the patient have a stroke diagnosis?: No VTE Prior VTE?: No VTE Risk Level:: Medical - moderate - high VTE Device Contraindication: N/A - Device Ordered VTE Drug Contraindication: Treatment Not Indicated
[2024-08-26] MEDS: Sodium Bicarbonate 650 MG TABLET G-TUBE (15:02)
[2024-08-26] MEDS: Lipase/Prot/Amylase 24/76/120K 1 CAP CAPSULE.DR 2 CAP PO (15:03)
[2024-08-26] MEDS: Omeprazole/Na Bicarb Oral Susp 20 MG/10 ML UD Cup PO (15:23)
[2024-08-26 15:51] LABS: Glucose, Whole Blood 217 mg/dL (60-115)
[2024-08-26 16:00] VITALS: BP 118/62; PULSE 81; RESP 18; TEMP 36.4; O2SAT 98
[2024-08-26 20:00] VITALS: BP 129/71; PULSE 98; RESP 20; TEMP 37.3; O2SAT 98
[2024-08-26] MEDS: Apixaban 5 MG TABLET PO (20:22)
[2024-08-26 22:40] LABS: Glucose, Whole Blood 152 mg/dL (60-115)
[2024-08-27] VITALS (7 sets, daily range): BP systolic 101–169; BP diastolic 58–80; PULSE 77–96; RESP 18–20; TEMP 36.3–36.8; O2SAT 95–99
[2024-08-27] MEDS: diphenhydrAMINE HCL 50 MG/ML VIAL 25 MG IVPUSH (02:04)
[2024-08-27 08:48] LABS: Glucose, Whole Blood 196 mg/dL (60-115)
[2024-08-27] MEDS: 0.9 % Sodium Chloride Flush 3 ML SYRINGE IVFLUSH (08:57)
[2024-08-27] MEDS: ondansetron HCL 4 MG/2 ML VIAL IVPUSH (08:57)
[2024-08-27] MEDS: Apixaban 5 MG TABLET PO (10:49)
[2024-08-27] MEDS: Insulin Glargine,Hum.rec.anlog 100 UNIT/ML 10 ML VIAL 10 UNIT SUBCUT (10:50)
--- NOTE | 2024-08-27 11:41 | P.PNIM_ITS ---
Subjective Subjective Date of Service: 08/27/24 Interval History: G-tube clogged yesterday; unclogged with Creon/bicarbonate but clogged against just now endorses nausea legs still very itchy no further hematemesis no abd pain Review of Systems Review of Systems: Yes all other systems are reviewed and are negative Physical Exam 2 Vital Signs: Vital Signs: Last Vital Signs Temp 97.6 F 08/27/24 08:00 Pulse 94 08/27/24 08:00 Resp 18 08/27/24 08:00 BP 141/80 H 08/27/24 08:00 Pulse Ox 97 08/27/24 08:00 O2 Del Method Room Air 08/27/24 08:00 O2 Flow Rate 6 08/25/24 12:45 BMI result Body Mass Index 21.9 Gen: in no acute distress HEENT: sclera anicteric, moist mucus membranes Neck: supple Lungs: clear to auscultation bilaterally Heart: regular rate and rhythm, no murmurs Abd: soft, non-tender, non-distended, GJ tube site intact Ext: no edema Skin: warm/well-perfused, scaly papules in linear groups on legs + buttocks Neuro: alert and oriented x3, L hemiparesis Psych: appropriate affect Objective Data Active Medications Acetaminophen (Acetaminophen 325 Mg Tablet) 650 mg G-TUBE Q6H PRN PRN Reason: Pain, Mild (Pain Scale 1-3), fever or headache Last Admin: 08/24/24 19:38 Dose: 650 mg Documented By: MARCELLA Lipase/Protease/Amylase (Lipase/Prot/Amylase 24/76/120k 1 Cap Capsule.Dr) 2 cap PO ONCE ONE Stop: 08/27/24 11:38 Apixaban (Apixaban 5 Mg Tablet) 5 mg PO BID [facility] Last Admin: 08/27/24 10:49 Dose: 5 mg Documented By: BROMamaodu Atorvastatin Calcium (Atorvastatin Calcium 80 Mg Tablet) 80 mg G-TUBE DAILY [facility] Last Admin: 08/27/24 10:49 Dose: 80 mg Documented By: BROMamadou Bisacodyl (Bisacodyl 10 Mg Supp.Rect) [address] DAILY PRN PRN Reason: Constipation Carvedilol (Carvedilol 6.25 Mg Tablet) 6.25 mg G-TUBE BID [facility]; Protocol Last Admin: 08/27/24 10:49 Dose: 6.25 mg Documented By: ANALIA Diphenhydramine HCl (Diphenhydramine Hcl 50 Mg/Ml Vial) 25 mg IVPUSH Q4H PRN PRN Reason: Itching Last Admin: 08/27/24 02:04 Dose: 25 mg Documented By: ORION Doxazosin Mesylate (Doxazosin Mesylate 2 Mg Tablet) 2 mg G-TUBE DAILY [facility]; Protocol Last Admin: 08/27/24 10:49 Dose: 2 mg Documented By: ANALIA Finasteride (Finasteride 5 Mg Tablet) 5 mg PO DAILY [facility] Last Admin: 08/27/24 11:38 Dose: Not Given Documented By: ANALIA Non-Admin Reason: Patient Condition Contraindication Gabapentin (Gabapentin 100 Mg Capsule) 100 mg G-TUBE BID [facility] Last Admin: 08/27/24 10:50 Dose: 100 mg Documented By: ANALIA Insulin Glargine (Insulin Glargine,Hum.Rec.Anlog 100 Unit/Ml 10 Ml Vial) 10 unit SUBCUT DAILY [facility] Last Admin: 08/27/24 10:50 Dose: 10 unit Documented By: ANALIA Insulin Human Lispro (Insulin Lispro 100 Unit/Ml 3 Ml Vial) 0 unit SUBCUT QIDACHS [facility]; Protocol Last Admin: 08/27/24 10:53 Dose: Not Given Documented By: ANALIA Non-Admin Reason: Patient Refused Lidocaine (Lidocaine 4 % Patch Adh..Patch) 1 patch TRANSDERMA DAILY PRN; Protocol PRN Reason: Back Pain Lidocaine (Lidocaine 4 % Patch Adh..Patch) 1 patch TRANSDERMA DAILY PRN; Protocol PRN Reason: SHOULDER PAIN Magnesium Hydroxide (Milk Of Magnesia 30 Ml Oral.Susp) 30 ml G-TUBE DAILY PRN PRN Reason: Constipation Metoclopramide HCl (Metoclopramide Hcl 10 Mg Tablet) 10 mg G-TUBE Q6H PRN PRN Reason: GERD Multivitamins/Minerals (Multivitamin With Minerals Liq 15 Ml Liquid) 15 ml G- TUBE DAILY [facility] Last Admin: 08/27/24 10:54 Dose: 15 ml Documented By: ANALIA Omeprazole (Omeprazole/Na Bicarb Oral Susp 20 Mg/10 Ml Ud Cup) 20 mg PO BID@0630,2470 [facility] Last Admin: 08/27/24 06:30 Dose: Not Given Documented By: ORION Non-Admin Reason: Patient Refused Ondansetron HCl (Ondansetron Hcl 4 Mg/2 Ml Vial) 4 mg IVPUSH Q8H PRN PRN Reason: Nausea and Vomiting Last Admin: 08/27/24 08:57 Dose: 4 mg Documented By: ANALIA Polyethylene Glycol (Polyethylene Glycol 3350 17 Gm Powd.Pack) 17 gm G-TUBE DAILY [facility] Last Admin: 08/27/24 10:53 Dose: 17 gm Documented By: ANALIA Prednisone (Prednisone 5 Mg Tablet) 5 mg G-TUBE DAILY [facility] Last Admin: 08/27/24 11:03 Dose: 5 mg Documented By: ANALIA Senna (Sennosides Oral Syrup 8.8 Mg/5 Ml) 8.8 mg G-TUBE BID PRN PRN Reason: Constipation Sodium Bicarbonate (Sodium Bicarbonate 650 Mg Tablet) 650 mg G-TUBE ONCE ONE Stop: 08/27/24 11:38 Sodium Chloride (0.9 % Sodium Chloride Flush 3 Ml Syringe) 3 ml IVFLUSH QSHIFT [facility] Last Admin: 08/27/24 08:57 Dose: 3 ml Documented By: ANALIA Tacrolimus (Tacrolimus 0.5 Mg Capsule) 0.5 mg G-TUBE BID [facility] Last Admin: 08/27/24 10:49 Dose: 0.5 mg Documented By: ANALIA Tenofovir Disoproxil Fumarate (Tenofovir Disoproxil Fumarate 300 Mg Tablet) 300 mg G-TUBE DAILY [facility] Last Admin: 08/27/24 10:49 Dose: 300 mg Documented By: ANALIA Labs 08/26/24 05:43 08/25/24 06:31 Labs: Laboratory Results - last 24 hr 08/26/24 08/26/24 08/27/24 15:24 22:34 08:34 POC Glucose 217 H 152 H 196 H Assessment and Plan (1) Coffee ground emesis: Status: Acute (2) Acute upper gastrointestinal bleeding: Status: Acute Plan d4 for 63yo M sent in from [facility] with PMHx CVA/L hemiparesis, dysphagia with GJ tube, PVD, ESRD s/p kidney transplant, HCV cirrhosis s/p liver transplant, DM2, pAF on apixaban, hx polysubstance abuse presented to ED 08/20 with dizziness, N/V, chest pain; had tested positive for Covid-19 08/09 family appealed discharge back to [facility] and requested placement elsewhere admitted for cofee-ground emesis, CT bleeding scan negative for acute bleed, H+H stable acute UGIB due to erosive esophagitis - H+H stable, continue PPI [changed from IV to PO] - follow up with GI in 2 wk for biopsy results - resumed apixaban today - resumed tube feeds G tube blockage - will try Creon/bicarbonate again; also consult Gen Surg pAF - continue carvedilol; resume apixaban tube feeding - appreciate Nutrition recommendations; resumed tube feeds - outpt gastric emptying study ordered by [facility] should be rescheduled - also takes pureed solids/nectar liquids PO rash - atypical eczema vs scabies. Very itchy. Treated presumptively for scabies with ivermectin 200 mcg/kg x1 dose 08/25/24; repeat on 09/01/24 recent Covid-19 - over 10 days since testing positive and no symptoms; d/c'ed isolation hx kidney + liver transplant - continue tacrolimus + prednisone hx ?HBV - continue tenofovir prostatism - doxazosin, finasteride hx CVA - continue statin; d/c ASA [apixaban should be sufficient] DM2 - basal-bolus insulin VTE ppx - SCDs dispo - awaiting STR placement In my clinical judgment, the patient requires continued inpatient hospitalization for the following reasons: placement, G tube malfunction Total time managing care of this patient today: 35 minutes. Quality Stroke Does the patient have a stroke diagnosis?: No VTE Prior VTE?: No VTE Risk Level:: Medical - moderate - high VTE Device Contraindication: N/A - Device Ordered VTE Drug Contraindication: Treatment Not Indicated
[2024-08-27 11:50] LABS: Glucose, Whole Blood 217 mg/dL (60-115)
[2024-08-27] MEDS: Lipase/Prot/Amylase 24/76/120K 1 CAP CAPSULE.DR 2 CAP PO (12:19)
[2024-08-27] MEDS: Insulin Lispro 100 UNIT/ML 3 ML VIAL SUBCUT (12:19)
[2024-08-27] MEDS: Sodium Bicarbonate 650 MG TABLET G-TUBE (12:19)
[2024-08-27 12:24] LABS: Hematocrit 31.2 % (42.0-52.0); Hemoglobin 9.8 g/dl (14.0-18.0); Mean Corpuscular HGB Conc 31.4 g/dl (31.0-36.0); Mean Corpuscular Hemoglobin 23.6 pg (27.0-33.0); Mean Platelet Volume 10.2 fL (9.4-12.4); Platelet Count 295 X10*3/uL (160-400); Red Blood Count 4.16 X10*6/uL (4.60-5.80); Red Cell Distribution Width 16.3 % (11.0-16.0); White Blood Count 7.7 X10*3/uL (4.8-10.8)
--- NOTE | 2024-08-27 12:45 | P.CONGS_ITS ---
History of Present Illness Consult details Consult date: 08/27/24 Narrative: Surgical consult for evaluation of clogged feeding tube. Patient was a plethora of comorbidities and intercurrent medical problems. Had JG feeding tube placed at an outside facility. Patient states he has had clogging issues in the past with a feeding tube. He is currently undergoing tube flushes in the attempted to unclog this. Chart was reviewed and patient evaluated PMFSH Past Medical History Medical History Esophagitis Erosive gastritis Insulin dependent type 2 diabetes mellitus Polysubstance use disorder Afib HTN (hypertension) GERD (gastroesophageal reflux disease) CVA (cerebral vascular accident) Diabetes Surgical History Surgical History Liver transplant recipient Kidney transplant recipient Social History Social History Household Members: Caregiver Household Members Other:: daughter Housing: Assisted Living Facility Do you presently have visiting nurse or other home services: No Patient Tobacco Use Status: Tobacco use Unknown Smoked in Last 30 Days: No Patient Interested in Nicotine Replacement: No Patient Given Instructions on How to Stop Smoking: No Second Hand Smoke Exposure: No Use of substances other than those prescribed or required for medical reasons: No Currently Displaying Signs/Symptoms of Drug Intoxication Withdrawal: No Any prior treatment program specific to substance use: No Have you been hit, kicked, punched, or otherwise hurt by someone within the past year? If so, by whom?: No Do you feel safe in your current relationship?: Yes Is there a partner from a previous relationship who is making you feel unsafe now?: No Are you made to feel afraid or neglected: No Congregational Healthcare Practices: yarsani Advance Directives: Yes Advance Directives on File: Yes Advance Directives Date on File: 08/22/24 Do you have a plan to hurt others: No Plan Recently lost weight without trying: Yes How much weight loss: 2-13 pounds Eating poorly because of decreased appetite: Yes Nutrition screen score: 4 Nutrition Risks: Difficulty swallowing, On aspiration precautions and Receiving home tube feeding or CPN Poor oral hygiene: No Meds Allergies Allergy/AdvReac Type Severity Reaction Status Date / Time desipramine Allergy Unknown Verified 08/20/24 16:32 Active Medications: Current Medications Acetaminophen (Acetaminophen 325 Mg Tablet) 650 mg G-TUBE Q6H PRN PRN Reason: Pain, Mild (Pain Scale 1-3), fever or headache Last Admin: 08/24/24 19:38 Dose: 650 mg Apixaban (Apixaban 5 Mg Tablet) 5 mg PO BID [facility] Last Admin: 08/27/24 10:49 Dose: 5 mg Atorvastatin Calcium (Atorvastatin Calcium 80 Mg Tablet) 80 mg G-TUBE DAILY [facility] Last Admin: 08/27/24 10:49 Dose: 80 mg Bisacodyl (Bisacodyl 10 Mg Supp.Rect) [address] DAILY PRN PRN Reason: Constipation Carvedilol (Carvedilol 6.25 Mg Tablet) 6.25 mg G-TUBE BID [facility]; Protocol Last Admin: 08/27/24 10:49 Dose: 6.25 mg Diphenhydramine HCl (Diphenhydramine Hcl 50 Mg/Ml Vial) 25 mg IVPUSH Q4H PRN PRN Reason: Itching Last Admin: 08/27/24 02:04 Dose: 25 mg Doxazosin Mesylate (Doxazosin Mesylate 2 Mg Tablet) 2 mg G-TUBE DAILY [facility]; Protocol Last Admin: 08/27/24 10:49 Dose: 2 mg Finasteride (Finasteride 5 Mg Tablet) 5 mg PO DAILY [facility] Last Admin: 08/27/24 11:38 Dose: Not Given Gabapentin (Gabapentin 100 Mg Capsule) 100 mg G-TUBE BID [facility] Last Admin: 08/27/24 10:50 Dose: 100 mg Insulin Glargine (Insulin Glargine,Hum.Rec.Anlog 100 Unit/Ml 10 Ml Vial) 10 unit SUBCUT DAILY [facility] Last Admin: 08/27/24 10:50 Dose: 10 unit Insulin Human Lispro (Insulin Lispro 100 Unit/Ml 3 Ml Vial) 0 unit SUBCUT QIDACHS [facility]; Protocol Last Admin: 08/27/24 12:19 Dose: 4 unit Lidocaine (Lidocaine 4 % Patch Adh..Patch) 1 patch TRANSDERMA DAILY PRN; Protocol PRN Reason: Back Pain Lidocaine (Lidocaine 4 % Patch Adh..Patch) 1 patch TRANSDERMA DAILY PRN; Protocol PRN Reason: SHOULDER PAIN Magnesium Hydroxide (Milk Of Magnesia 30 Ml Oral.Susp) 30 ml G-TUBE DAILY PRN PRN Reason: Constipation Metoclopramide HCl (Metoclopramide Hcl 10 Mg Tablet) 10 mg G-TUBE Q6H PRN PRN Reason: GERD Multivitamins/Minerals (Multivitamin With Minerals Liq 15 Ml Liquid) 15 ml G- TUBE DAILY [facility] Last Admin: 08/27/24 10:54 Dose: 15 ml Omeprazole (Omeprazole/Na Bicarb Oral Susp 20 Mg/10 Ml Ud Cup) 20 mg PO BID@0630,1630 [facility] Last Admin: 08/27/24 06:30 Dose: Not Given Ondansetron HCl (Ondansetron Hcl 4 Mg/2 Ml Vial) 4 mg IVPUSH Q8H PRN PRN Reason: Nausea and Vomiting Last Admin: 08/27/24 08:57 Dose: 4 mg Polyethylene Glycol (Polyethylene Glycol 3350 17 Gm Powd.Pack) 17 gm G-TUBE DAILY [facility] Last Admin: 08/27/24 10:53 Dose: 17 gm Prednisone (Prednisone 5 Mg Tablet) 5 mg G-TUBE DAILY [facility] Last Admin: 08/27/24 11:03 Dose: 5 mg Senna (Sennosides Oral Syrup 8.8 Mg/5 Ml) 8.8 mg G-TUBE BID PRN PRN Reason: Constipation Sodium Chloride (0.9 % Sodium Chloride Flush 3 Ml Syringe) 3 ml IVFLUSH QSHIFT [facility] Last Admin: 08/27/24 08:57 Dose: 3 ml Tacrolimus (Tacrolimus 0.5 Mg Capsule) 0.5 mg G-TUBE BID [facility] Last Admin: 08/27/24 10:49 Dose: 0.5 mg Tenofovir Disoproxil Fumarate (Tenofovir Disoproxil Fumarate 300 Mg Tablet) 300 mg G-TUBE DAILY [facility] Last Admin: 08/27/24 10:49 Dose: 300 mg Home Medications ?Medication ?Instructions ?Recorded ?Confirmed ?Last Taken ?Type acetaminophen 500 mg/15 mL oral 1,000 mg PO Q8H PRN Pain 08/21/24 08/21/24 Unknown History liquid albuterol 90 mcg-budesonide 80 2 inh inhalation QID PRN Wheezing 08/21/24 08/21/24 Unknown History mcg/actuation HFA aerosol inhaler apixaban 5 mg tablet 5 mg PO BID 08/21/24 08/21/24 Unknown History aspirin 81 mg tablet,delayed 81 mg PO DAILY 08/21/24 08/21/24 Unknown History release bisacodyl 10 mg rectal suppository [address] DAILY PRN Constipation 08/21/24 08/21/24 Unknown History carvedilol 6.25 mg tablet (Coreg) 6.25 mg PO BID 08/21/24 08/21/24 Unknown History diphenhydramine HCl 25 mg capsule 25 mg PO Q4H PRN Itching 08/21/24 08/21/24 Unknown History (Benadryl) doxazosin 2 mg tablet 2 mg PO DAILY 08/21/24 08/21/24 Unknown History entecavir 0.5 mg tablet 0.5 mg PO DAILY 08/21/24 08/21/24 Unknown History finasteride 5 mg tablet 5 mg PO DAILY 08/21/24 08/21/24 Unknown History fluticasone furoate 50 1 ea inhalation DAILY 08/21/24 08/21/24 Unknown History mcg-vilanterol 25 mcg/dose inhalation powder gabapentin 250 mg/5 mL oral 100 mg PO BID 08/21/24 08/21/24 Unknown History solution insulin glargine 100 unit/mL 10 unit subcut DAILY 08/21/24 08/21/24 Unknown History subcutaneous solution insulin lispro 100 unit/mL 1 sliding scale dose subcut 08/21/24 08/21/24 Unknown History subcutaneous pen USEASDIRECTD lansoprazole 30 mg capsule,delayed 30 mg PO DAILY 08/21/24 08/21/24 Unknown History release lidocaine 4 % topical patch 1 patch topical DAILY PRN Back Pain 08/21/24 08/21/24 Unknown History lidocaine 4 % topical patch 1 patch topical DAILY PRN SHOULDER 08/21/24 08/21/24 Unknown History PAIN metoclopramide HCl 10 mg tablet 10 mg PO Q6H PRN GERD 08/21/24 08/21/24 Unknown History multivitamin 1 tab PO DAILY 08/21/24 08/21/24 Unknown History polyethylene glycol 3350 17 gram 17 g PO DAILY 08/21/24 08/21/24 Unknown History oral powder packet prednisone 5 mg tablet 5 mg PO DAILY 08/21/24 08/21/24 Unknown History rosuvastatin 20 mg tablet 40 mg PO DAILY 08/21/24 08/21/24 Unknown History sennosides 8.8 mg/5 mL oral syrup 8.8 mg PO BID PRN Constipation 08/21/24 08/21/24 Unknown History (senna) tacrolimus 0.5 mg capsule, 0.5 mg PO Q12H 08/21/24 08/21/24 Unknown History immediate-release Physical Exam 2 Vital Signs: Vital Signs: Last Vital Signs Temp 97.4 F 08/27/24 11:58 Pulse 90 08/27/24 11:58 Resp 18 08/27/24 11:58 BP 140/60 H 08/27/24 11:58 Pulse Ox 99 08/27/24 11:58 O2 Del Method Room Air 08/27/24 11:58 O2 Flow Rate 6 08/25/24 12:45 BMI result Body Mass Index 21.9 GI: Other: Left upper quadrant feeding tube occluded. In fact nurse was attempting to flush it open when I was evaluating patient Results Labs 08/27/24 12:07 08/25/24 06:31 Labs: Abnormal lab results 08/26/24 08/26/24 08/27/24 Range/Units 15:24 22:34 08:34 RBC (4.60-5.80) X10*6/uL Hgb (14.0-18.0) g/dl Hct (42.0-52.0) % MCV (80.0-98.0) fL MCH (27.0-33.0) pg RDW (11.0-16.0) % POC Glucose 217 H 152 H 196 H (60-115) mg/dL 08/27/24 08/27/24 Range/Units 11:42 12:07 RBC 4.16 L (4.60-5.80) X10*6/uL Hgb 9.8 L (14.0-18.0) g/dl Hct 31.2 L (42.0-52.0) % MCV 75.0 L (80.0-98.0) fL MCH 23.6 L (27.0-33.0) pg RDW 16.3 H (11.0-16.0) % POC Glucose 217 H (60-115) mg/dL Short CBC 08/27/24 Range/Units 12:07 WBC 7.7 (4.8-10.8) X10*3/uL Hgb 9.8 L (14.0-18.0) g/dl Hct 31.2 L (42.0-52.0) % Plt Count 295 (160-400) X10*3/uL Urine 08/20/24 08/23/24 Range/Units 21:58 19:09 Urine Color Yellow Yellow Urine Appearance Turbid Cloudy Urine pH 8.5 8.0 (5.0-9.0) Ur Specific [place] 1.020 1.025 (1.005-1.025) Urine Protein Trace 30 (1+) H (Neg-Trace) mg/dL Urine Glucose (UA) 100 H Negative (Negative) mg/dL All other labs normal. Assessment and Plan (1) Feeding tube blocked: Status: Acute Plan I discussed with hospitalist that should this be unable to be unclogged, consider IR tube were placement tomorrow. Procedures Date of Service Date of Service: 08/27/24
[2024-08-27 16:22] LABS: Glucose, Whole Blood 164 mg/dL (60-115)
--- NOTE | 2024-08-27 19:27 | PC.NURSE ---
Patient A&O x 4, on feeding tube which stopped working in am, unable to unclog, per MD feeding on hold pending tube replacement tomorrow. Patient c/o nausea and vomiting, tired PO and unable to keep it down. Patient kept asking for something to drink but unable to tolerate. Diet was changed to NPO, patient was advised of the changed and became upset, insisting he is able to tolerated it.
[2024-08-27 21:28] LABS: Glucose, Whole Blood 144 mg/dL (60-115)
[2024-08-28] VITALS (9 sets, daily range): BP systolic 109–140; BP diastolic 57–77; PULSE 53–105; RESP 16–20; TEMP 36.2–37.1; O2SAT 95–98
[2024-08-28 08:19] LABS: Glucose, Whole Blood 148 mg/dL (60-115)
[2024-08-28] MEDS: 0.9 % Sodium Chloride Flush 3 ML SYRINGE IVFLUSH ×2 (08:36→21:19)
[2024-08-28] MEDS: Insulin Glargine,Hum.rec.anlog 100 UNIT/ML 10 ML VIAL 10 UNIT SUBCUT (10:34)
[2024-08-28 11:05] LABS: Glucose, Whole Blood 124 mg/dL (60-115)
--- NOTE | 2024-08-28 11:15 | MHC.CLN ---
F/U RECEIVES HOME TUBE FEEDING VIA G-J TUBE FEEDING TUBE CLOGGED PT IS NPO R/T PENDING FEEDING TUBE RE-PLACEMENT TODAY WHEN TF TO RESUME; RECOMMEND TUBE NEPRO AT MAX GOAL RATE OF 45 ML/HOUR CONTINUOUS WITH 240 ML FREE WATER FLUSHES Q 6 HOURS TO PROVIDE 1944 KCALS (27.3 KCALS/KG), 87 G PROTEIN (1.22 G/KG), 1745 TOTAL ML FREE WATER FROM FORMULA AND FLUSHES (24.5 ML/KG) MONITOR FOR DIET ADVANCEMENT
[2024-08-28 11:24] LABS: Hematocrit 32.9 % (42.0-52.0); Hemoglobin 10.1 g/dl (14.0-18.0); Mean Corpuscular HGB Conc 30.7 g/dl (31.0-36.0); Mean Corpuscular Hemoglobin 23.6 pg (27.0-33.0); Mean Corpuscular Volume 76.9 fL (80.0-98.0); Mean Platelet Volume 11.2 fL (9.4-12.4); Platelet Count 310 X10*3/uL (160-400); Red Blood Count 4.28 X10*6/uL (4.60-5.80); Red Cell Distribution Width 16.4 % (11.0-16.0); White Blood Count 6.8 X10*3/uL (4.8-10.8)
[2024-08-28] MEDS: ondansetron HCL 4 MG/2 ML VIAL IVPUSH (16:07)
[2024-08-28 16:31] LABS: Glucose, Whole Blood 132 mg/dL (60-115)
--- NOTE | 2024-08-28 17:01 | P.PNIM_ITS ---
Subjective Subjective Date of Service: 08/28/24 Interval History: JG tube successfully recannulated by IR. Patient complaints only of itching Review of Systems Denies chest pain Denies shortness of breath Denies nausea vomiting diarrhea denies fever chills Physical Exam 2 Vital Signs: Vital Signs: Last Vital Signs Temp 98.7 F 08/28/24 15:29 Pulse 90 08/28/24 15:29 Resp 20 08/28/24 15:29 BP 140/77 H 08/28/24 15:29 Pulse Ox 97 08/28/24 15:29 O2 Del Method Room Air 08/28/24 15:29 O2 Flow Rate 6 08/25/24 12:45 BMI result Body Mass Index 21.9 Const: Other: No acute distress Resp: Other: Clear to auscultation bilaterally no rales rhonchi or wheezes Cardio: Other: No S4:positive S1-S2; no S3 murmurs rubs or gallops GI: Other: Soft nontender nondistended normoactive bowel sounds Extrem: Other: No edema bilaterally Objective Data Active Medications Acetaminophen (Acetaminophen 325 Mg Tablet) 650 mg G-TUBE Q6H PRN PRN Reason: Pain, Mild (Pain Scale 1-3), fever or headache Last Admin: 08/24/24 19:38 Dose: 650 mg Documented By: MARCELLA Apixaban (Apixaban 5 Mg Tablet) 5 mg PO BID [facility] Last Admin: 08/27/24 10:49 Dose: 5 mg Documented By: DOBROMamadou Atorvastatin Calcium (Atorvastatin Calcium 80 Mg Tablet) 80 mg G-TUBE DAILY [facility] Last Admin: 08/28/24 09:48 Dose: Not Given Documented By: SIMIN Non-Admin Reason: G tube blocked Bisacodyl (Bisacodyl 10 Mg Supp.Rect) 10 mg [place] DAILY PRN PRN Reason: Constipation Carvedilol (Carvedilol 6.25 Mg Tablet) 6.25 mg G-TUBE BID [facility]; Protocol Last Admin: 08/28/24 09:51 Dose: Not Given Documented By: SIMIN Non-Admin Reason: Blocked G tube Diphenhydramine HCl (Diphenhydramine Hcl 50 Mg/Ml Vial) 25 mg IVPUSH Q4H PRN PRN Reason: Itching Last Admin: 08/27/24 02:04 Dose: 25 mg Documented By: ORION Doxazosin Mesylate (Doxazosin Mesylate 2 Mg Tablet) 2 mg G-TUBE DAILY [facility]; Protocol Last Admin: 08/28/24 09:51 Dose: Not Given Documented By: SIMIN Non-Admin Reason: Blocked G tube Finasteride (Finasteride 5 Mg Tablet) 5 mg PO DAILY [facility] Last Admin: 08/28/24 09:51 Dose: Not Given Documented By: SIMIN Non-Admin Reason: NPO Gabapentin (Gabapentin 100 Mg Capsule) 100 mg G-TUBE BID [facility] Last Admin: 08/28/24 09:52 Dose: Not Given Documented By: SIMIN Non-Admin Reason: Blocked G tube Insulin Glargine (Insulin Glargine,Hum.Rec.Anlog 100 Unit/Ml 10 Ml Vial) 10 unit SUBCUT DAILY [facility] Last Admin: 08/28/24 10:34 Dose: 10 unit Documented By: SIMIN Insulin Human Lispro (Insulin Lispro 100 Unit/Ml 3 Ml Vial) 0 unit SUBCUT QIDACHS [facility]; Protocol Last Admin: 08/28/24 16:58 Dose: Not Given Documented By: SIMIN Non-Admin Reason: No Insulin Coverage Lidocaine (Lidocaine 4 % Patch Adh..Patch) 1 patch TRANSDERMA DAILY PRN; Protocol PRN Reason: Back Pain Lidocaine (Lidocaine 4 % Patch Adh..Patch) 1 patch TRANSDERMA DAILY PRN; Protocol PRN Reason: SHOULDER PAIN Magnesium Hydroxide (Milk Of Magnesia 30 Ml Oral.Susp) 30 ml G-TUBE DAILY PRN PRN Reason: Constipation Metoclopramide HCl (Metoclopramide Hcl 10 Mg Tablet) 10 mg G-TUBE Q6H PRN PRN Reason: GERD Multivitamins/Minerals (Multivitamin With Minerals Liq 15 Ml Liquid) 15 ml G- TUBE DAILY [facility] Last Admin: 08/28/24 09:52 Dose: Not Given Documented By: SIMIN Non-Admin Reason: Blocked G tube Omeprazole (Omeprazole/Na Bicarb Oral Susp 20 Mg/10 Ml Ud Cup) 20 mg PO BID@0630,1630 [facility] Last Admin: 08/28/24 05:35 Dose: Not Given Documented By: FRANCISCO Non-Admin Reason: Patient Condition Contraindication Ondansetron HCl (Ondansetron Hcl 4 Mg/2 Ml Vial) 4 mg IVPUSH Q8H PRN PRN Reason: Nausea and Vomiting Last Admin: 08/28/24 16:07 Dose: 4 mg Documented By: SIMIN Polyethylene Glycol (Polyethylene Glycol 3350 17 Gm Powd.Pack) 17 gm G-TUBE DAILY [facility] Last Admin: 08/28/24 09:52 Dose: Not Given Documented By: SIMIN Non-Admin Reason: Blocked G tube Prednisone (Prednisone 5 Mg Tablet) 5 mg G-TUBE DAILY [facility] Last Admin: 08/28/24 09:52 Dose: Not Given Documented By: SIMIN Non-Admin Reason: Administered by Alternate Route Senna (Sennosides Oral Syrup 8.8 Mg/5 Ml) 8.8 mg G-TUBE BID PRN PRN Reason: Constipation Sodium Chloride (0.9 % Sodium Chloride Flush 3 Ml Syringe) 3 ml IVFLUSH QSHIFT [facility] Last Admin: 08/28/24 08:36 Dose: 3 ml Documented By: SIMIN Tacrolimus (Tacrolimus 0.5 Mg Capsule) 0.5 mg G-TUBE BID [facility] Last Admin: 08/28/24 09:52 Dose: Not Given Documented By: SIMIN Non-Admin Reason: Blocked G tube Tenofovir Disoproxil Fumarate (Tenofovir Disoproxil Fumarate 300 Mg Tablet) 300 mg G-TUBE DAILY [facility] Last Admin: 08/28/24 09:53 Dose: Not Given Documented By: SIMIN Non-Admin Reason: Blocked G tube Labs 08/28/24 10:47 08/25/24 06:31 Labs: Laboratory Results - last 24 hr 08/27/24 08/28/24 08/28/24 21:20 08:11 10:47 MCV 76.9 L MCH 23.6 L MCHC 30.7 L RDW 16.4 H Plt Count 310 MPV 11.2 Absolute Nucleated RBC 0.000 Nucleated RBC % (auto) 0.0 POC Glucose 144 H 148 H 08/28/24 08/28/24 11:00 16:26 MCV MCH MCHC RDW Plt Count MPV Absolute Nucleated RBC Nucleated RBC % (auto) POC Glucose 124 H 132 H Assessment and Plan (1) Acute upper gastrointestinal bleeding: Status: Acute (2) Feeding tube blocked: Status: Acute (3) Insulin dependent type 2 diabetes mellitus: Status: Acute Plan d4 for 63yo M sent in from [facility] with PMHx CVA/L hemiparesis, dysphagia with GJ tube, PVD, ESRD s/p kidney transplant, HCV cirrhosis s/p liver transplant, DM2, pAF on apixaban, hx polysubstance abuse presented to ED 08/20 with dizziness, N/V, chest pain; had tested positive for Covid-19 08/09 family appealed discharge back to [facility] and requested placement elsewhere admitted for cofee-ground emesis, CT bleeding scan negative for acute bleed, H+H stable 1.Acute UGIB due to erosive esophagitis - H+H stable, continue PPI - follow up with GI in 2 wk for biopsy results - resumed apixaban today - resumed tube feeds now that G-tube patent... Nutritional recommendations instituted -drooling concerning for swallow issues; ask speech to see in a.m. 2. Paroxysmal atrial fibrillation -sinus rhythm presently - continue carvedilol; resume apixaban -adjust therapies as clinically indicated 3.Kidney/liver transplant - continue tacrolimus + prednisone 3.DM2 -acceptable control on current therapies -lispro correctional scale -adjust as indicated Lovenox Full code dispo - awaiting STR placement Quality Stroke Does the patient have a stroke diagnosis?: No VTE Prior VTE?: No VTE Risk Level:: Medical - moderate - high VTE Device Contraindication: N/A - Device Ordered VTE Drug Contraindication: Treatment Not Indicated
[2024-08-28] MEDS: Omeprazole/Na Bicarb Oral Susp 20 MG/10 ML UD Cup PO (17:47)
[2024-08-28 21:07] LABS: Glucose, Whole Blood 139 mg/dL (60-115)
[2024-08-28] MEDS: Acetaminophen 325 MG TABLET 650 MG G-TUBE (21:18)
[2024-08-28] MEDS: Tacrolimus 0.5 MG CAPSULE G-TUBE (21:18)
[2024-08-28] MEDS: Gabapentin 100 MG CAPSULE G-TUBE (21:18)
[2024-08-28] MEDS: Metoclopramide HCl 10 MG TABLET G-TUBE (21:18)
[2024-08-29] VITALS (7 sets, daily range): BP systolic 112–147; BP diastolic 65–92; PULSE 88–104; RESP 18–20; TEMP 36.4–36.9; O2SAT 94–98
[2024-08-29] MEDS: Omeprazole/Na Bicarb Oral Susp 20 MG/10 ML UD Cup PO ×2 (05:47→17:35)
[2024-08-29 06:08] LABS: MANUAL DIFF FLAG NO
[2024-08-29 06:15] LABS: Basophils Percent Auto 0.7 % (0-2); Eosinophils Absolute Auto 0.5 X10*3/uL (0.0-0.4); Eosinophils Percent Auto 8.9 % (0-4); Hematocrit 35.1 % (42.0-52.0); Hemoglobin 10.7 g/dl (14.0-18.0); Imm Gran Abs Auto 0.02 X10*3/uL (0.00-0.03); Imm Gran Pct Auto 0.3 % (0.0-0.4); Lymphocytes Absolute Auto 2.3 X10*3/uL (1.2-4.9); Lymphocytes Percent Auto 38.5 % (20-40); Mean Corpuscular HGB Conc 30.5 g/dl (31.0-36.0); Mean Corpuscular Hemoglobin 23.4 pg (27.0-33.0); Mean Corpuscular Volume 76.6 fL (80.0-98.0); Mean Platelet Volume 10.8 fL (9.4-12.4); Monocytes Absolute Auto 0.6 X10*3/uL (0.1-1.2); Neutrophils Absolute Auto 2.4 x10*3/uL (2.0-8.3); Neutrophils Percent Auto 40.6 % (45-73); Platelet Count 252 X10*3/uL (160-400); Red Blood Count 4.58 X10*6/uL (4.60-5.80); Red Cell Distribution Width 16.3 % (11.0-16.0); White Blood Count 5.8 X10*3/uL (4.8-10.8)
[2024-08-29] MEDS: ondansetron HCL 4 MG/2 ML VIAL IVPUSH (06:28)
[2024-08-29 06:33] LABS: Alanine Aminotransferase 55 U/L (0-40); Albumin Level 3.2 g/dL (3.5-5.0); Alkaline Phosphatase 201 U/L (39-117); Anion Gap 15 (12-20); Aspartate Amino Transferase 79 U/L (5-37); Bilirubin Total 0.5 mg/dL (0.0-1.0); Blood Urea Nitrogen 11 mg/dL (9-16); Calcium 9.2 mg/dL (8.4-10.2); Carbon Dioxide 24 mmol/L (22-29); Chloride 103 mmol/L (96-108); Creatinine Clr Calc Pharmacy 90.4; Estimated Glomerular Filt Rate > 60; Glucose Fasting 193 mg/dL (60-99); Potassium 3.9 mmol/L (3.3-5.1); Sodium 138 mmol/L (135-145); Total Protein 8.6 g/dL (6.5-8.0)
[2024-08-29 07:18] LABS: Glucose, Whole Blood 205 mg/dL (60-115)
--- NOTE | 2024-08-29 08:47 | MHC.CM.PN ---
EMR REVIEWED, P.T. REC LTC, PT'S SISTER/HCP PREFERS AND HAD ACCEPTED BED AT [facility], [facility] FOLLOWING HOWEVER UNABLE TO TAKE PT UNTIL 09/01- AFTER 2ND DOSE OF IVERMECTIN, CM WILL CONT TO FOLLOW DC NEEDS.
--- NOTE | 2024-08-29 10:39 | MHC.CLN ---
F/U FEEDING TUBE RE-PLACED PT RECEIVING NEPRO TF AT MAX GOAL RATE OF 45 ML/HOUR CONTINUOUS WITH 240 ML FREE WATER FLUSHES Q 6 HOURS PROVIDES 1944 KCALS (27.3 KCALS/KG), 87 G PROTEIN (1.22 G/KG), 1745 TOTAL ML FREE WATER FROM FORMULA AND FLUSHES (24.5 ML/KG) PUREED WITH NT LIQ DIET ALSO IN PLACE MONITOR PO INTAKE CLOSELY IN ADDITION TO TF TOLERANCE AND LYTES
[2024-08-29] MEDS: Multivitamin with Minerals Liq 15 ML LIQUID G-TUBE (11:08)
[2024-08-29] MEDS: 0.9 % Sodium Chloride Flush 3 ML SYRINGE IVFLUSH ×2 (11:08→17:35)
[2024-08-29] MEDS: polyethylene glycoL 3350 17 GM POWD.PACK G-TUBE (11:08)
[2024-08-29] MEDS: Finasteride 5 MG TABLET PO (11:08)
[2024-08-29] MEDS: Insulin Glargine,Hum.rec.anlog 100 UNIT/ML 10 ML VIAL 10 UNIT SUBCUT (11:08)
[2024-08-29] MEDS: Tacrolimus 0.5 MG CAPSULE G-TUBE ×2 (11:08→21:31)
[2024-08-29] MEDS: Gabapentin 100 MG CAPSULE G-TUBE ×2 (11:09→21:31)
[2024-08-29] MEDS: carvediloL 6.25 MG TABLET G-TUBE ×2 (11:09→21:31)
[2024-08-29] MEDS: Tenofovir Disoproxil Fumarate 300 MG TABLET G-TUBE (11:09)
[2024-08-29] MEDS: Atorvastatin Calcium 80 MG TABLET G-TUBE (11:09)
[2024-08-29] MEDS: Doxazosin Mesylate 2 MG TABLET G-TUBE (11:09)
[2024-08-29] MEDS: predniSONE 5 MG TABLET G-TUBE (11:12)
[2024-08-29 11:30] LABS: Glucose, Whole Blood 200 mg/dL (60-115)
[2024-08-29] MEDS: Insulin Lispro 100 UNIT/ML 3 ML VIAL SUBCUT ×3 (12:45→21:37)
[2024-08-29] MEDS: Metoclopramide HCl 10 MG TABLET G-TUBE (12:45)
[2024-08-29] MEDS: diphenhydrAMINE HCL 50 MG/ML VIAL 25 MG IVPUSH ×2 (12:51→21:40)
--- NOTE | 2024-08-29 16:00 | HO.PM.IMPN ---
Subjective Subjective Date of Service: 08/29/24 Interval History: G J-tube continues to function well. Tolerating feedings Review of Systems Denies chest pain Denies shortness of breath Denies nausea vomiting diarrhea denies fever chills Physical Exam Vital Signs: Vital Signs: Last Vital Signs Temp 98.4 F 08/29/24 15:49 Pulse 99 08/29/24 15:49 Resp 18 08/29/24 15:49 BP 126/84 08/29/24 15:49 Pulse Ox 98 08/29/24 15:49 O2 Del Method Room Air 08/29/24 15:49 O2 Flow Rate 6 08/25/24 12:45 BMI result Body Mass Index 21.9 Const: Other: No acute distress Resp: Other: Clear to auscultation bilaterally no rales rhonchi or wheezes Cardio: Other: No S4:positive S1-S2; no S3 murmurs rubs or gallops GI: Other: Soft nontender nondistended normoactive bowel sounds Extrem: Other: No edema bilaterally Objective Data Active Medications Acetaminophen (Acetaminophen 325 Mg Tablet) 650 mg G-TUBE Q6H PRN PRN Reason: Pain, Mild (Pain Scale 1-3), fever or headache Last Admin: 08/28/24 21:18 Dose: 650 mg Documented By: LEE Apixaban (Apixaban 5 Mg Tablet) 5 mg PO BID ON LICENSE OF [facility] Last Admin: 08/27/24 10:49 Dose: 5 mg Documented By: ANALIA Atorvastatin Calcium (Atorvastatin Calcium 80 Mg Tablet) 80 mg G-TUBE DAILY ON LICENSE OF [facility] Last Admin: 08/29/24 11:09 Dose: 80 mg Documented By: JESSICA Bisacodyl (Bisacodyl 10 Mg Supp.Rect) 10 mg [place] DAILY PRN PRN Reason: Constipation Carvedilol (Carvedilol 6.25 Mg Tablet) 6.25 mg G-TUBE BID ON LICENSE OF [facility]; Protocol Last Admin: 08/29/24 11:09 Dose: 6.25 mg Documented By: JESSICA Diphenhydramine HCl (Diphenhydramine Hcl 50 Mg/Ml Vial) 25 mg IVPUSH Q4H PRN PRN Reason: Itching Last Admin: 08/29/24 12:51 Dose: 25 mg Documented By: JESSICA Doxazosin Mesylate (Doxazosin Mesylate 2 Mg Tablet) 2 mg G-TUBE DAILY ON LICENSE OF [facility]; Protocol Last Admin: 08/29/24 11:09 Dose: 2 mg Documented By: JESSICA Finasteride (Finasteride 5 Mg Tablet) 5 mg PO DAILY ON LICENSE OF [facility] Last Admin: 08/29/24 11:08 Dose: 5 mg Documented By: JESSICA Gabapentin (Gabapentin 100 Mg Capsule) 100 mg G-TUBE BID ON LICENSE OF [facility] Last Admin: 08/29/24 11:09 Dose: 100 mg Documented By: JESSICA Insulin Glargine (Insulin Glargine,Hum.Rec.Anlog 100 Unit/Ml 10 Ml Vial) 10 unit SUBCUT DAILY ON LICENSE OF [facility] Last Admin: 08/29/24 11:08 Dose: 10 unit Documented By: JESSICA Insulin Human Lispro (Insulin Lispro 100 Unit/Ml 3 Ml Vial) 0 unit SUBCUT QIDACHS ON LICENSE OF [facility]; Protocol Last Admin: 08/29/24 12:45 Dose: 4 unit Documented By: JESSICA Lidocaine (Lidocaine 4 % Patch Adh..Patch) 1 patch TRANSDERMA DAILY PRN; Protocol PRN Reason: Back Pain Lidocaine (Lidocaine 4 % Patch Adh..Patch) 1 patch TRANSDERMA DAILY PRN; Protocol PRN Reason: SHOULDER PAIN Magnesium Hydroxide (Milk Of Magnesia 30 Ml Oral.Susp) 30 ml G-TUBE DAILY PRN PRN Reason: Constipation Metoclopramide HCl (Metoclopramide Hcl 10 Mg Tablet) 10 mg G-TUBE Q6H PRN PRN Reason: GERD Last Admin: 08/29/24 12:45 Dose: 10 mg Documented By: JESSICA Multivitamins/Minerals (Multivitamin With Minerals Liq 15 Ml Liquid) 15 ml G-TUBE DAILY ON LICENSE OF [facility] Last Admin: 08/29/24 11:08 Dose: 15 ml Documented By: JESSICA Omeprazole (Omeprazole/Na Bicarb Oral Susp 20 Mg/10 Ml Ud Cup) 20 mg PO BID@0630,1630 ON LICENSE OF [facility] Last Admin: 08/29/24 05:47 Dose: 20 mg Documented By: LEE Ondansetron HCl (Ondansetron Hcl 4 Mg/2 Ml Vial) 4 mg IVPUSH Q8H PRN PRN Reason: Nausea and Vomiting Last Admin: 08/29/24 06:28 Dose: 4 mg Documented By: LEE Polyethylene Glycol (Polyethylene Glycol 3350 17 Gm Powd.Pack) 17 gm G-TUBE DAILY ON LICENSE OF [facility] Last Admin: 08/29/24 11:08 Dose: 17 gm Documented By: JESSICA Prednisone (Prednisone 5 Mg Tablet) 5 mg G-TUBE DAILY ON LICENSE OF [facility] Last Admin: 08/29/24 11:12 Dose: 5 mg Documented By: JESSICA Senna (Sennosides Oral Syrup 8.8 Mg/5 Ml) 8.8 mg G-TUBE BID PRN PRN Reason: Constipation Sodium Chloride (0.9 % Sodium Chloride Flush 3 Ml Syringe) 3 ml IVFLUSH QSHIFT ON LICENSE OF [facility] Last Admin: 08/29/24 11:08 Dose: 3 ml Documented By: JESSICA Tacrolimus (Tacrolimus 0.5 Mg Capsule) 0.5 mg G-TUBE BID ON LICENSE OF [facility] Last Admin: 08/29/24 11:08 Dose: 0.5 mg Documented By: JESSICA Tenofovir Disoproxil Fumarate (Tenofovir Disoproxil Fumarate 300 Mg Tablet) 300 mg G-TUBE DAILY ON LICENSE OF [facility] Last Admin: 08/29/24 11:09 Dose: 300 mg Documented By: JESSICA Labs 08/29/24 05:57 08/29/24 05:57 Labs: Laboratory Results - last 24 hr 08/28/24 08/28/24 08/29/24 16:26 20:51 05:57 MCV 76.6 L MCH 23.4 L MCHC 30.5 L RDW 16.3 H Plt Count 252 MPV 10.8 Immature Gran % (Auto) 0.3 Neut % (Auto) 40.6 L Lymph % (Auto) 38.5 [place] % (Auto) 11.0 Eos % (Auto) 8.9 H Baso % (Auto) 0.7 Lymph # (Auto) 2.3 [place] # (Auto) 0.6 Eos # (Auto) 0.5 H Baso # (Auto) 0.0 Abs Immat Gran (auto) 0.02 Absolute Neuts (auto) 2.4 Absolute Nucleated RBC 0.000 Nucleated RBC % (auto) 0.0 Anion Gap 15 Estim Creat Clear Calc 90.4 Estimated GFR > 60 POC Glucose 132 H 139 H Fasting Glucose 193 H Calcium 9.2 Total Bilirubin 0.5 AST 79 H ALT 55 H Alkaline Phosphatase 201 H Total Protein 8.6 H Albumin 3.2 L 08/29/24 08/29/24 07:08 11:21 MCV MCH MCHC RDW Plt Count MPV Immature Gran % (Auto) Neut % (Auto) Lymph % (Auto) [place] % (Auto) Eos % (Auto) Baso % (Auto) Lymph # (Auto) [place] # (Auto) Eos # (Auto) Baso # (Auto) Abs Immat Gran (auto) Absolute Neuts (auto) Absolute Nucleated RBC Nucleated RBC % (auto) Anion Gap Estim Creat Clear Calc Estimated GFR POC Glucose 205 H 200 H Fasting Glucose Calcium Total Bilirubin AST ALT Alkaline Phosphatase Total Protein Albumin Assessment and Plan (1) Acute upper gastrointestinal bleeding: Status: Acute (2) Insulin dependent type 2 diabetes mellitus: Status: Acute Plan d4 for 63yo M sent in from [facility] SNF with PMHx CVA/L hemiparesis, dysphagia with GJ tube, PVD, ESRD s/p kidney transplant, HCV cirrhosis s/p liver transplant, DM2, pAF on apixaban, hx polysubstance abuse presented to ED 08/20 with dizziness, N/V, chest pain; had tested positive for Covid-19 08/09 family appealed discharge back to [facility] and requested placement elsewhere admitted for cofee-ground emesis, CT bleeding scan negative for acute bleed, H+H stable 1.Acute UGIB due to erosive esophagitis - H+H stable, continue PPI -resumed tube feeds now that G-tube patent... Nutritional recommendations instituted -awake speech is input on oral diet as patient was taking oral NG-tube supplements and long-term care 2. Paroxysmal atrial fibrillation -sinus rhythm presently - continue carvedilol/apixaban -adjust therapies as clinically indicated 3.Kidney/liver transplant - continue tacrolimus + prednisone 3.DM2 -acceptable control on current therapies -lispro correctional scale -adjust as indicated Lovenox Full code dispo - awaiting STR placement Quality Stroke Does the patient have a stroke diagnosis?: No VTE Prior VTE?: No VTE Risk Level:: Medical - moderate - high VTE Device Contraindication: N/A - Device Ordered VTE Drug Contraindication: Treatment Not Indicated
[2024-08-29 16:23] LABS: Glucose, Whole Blood 172 mg/dL (60-115)
--- NOTE | 2024-08-29 17:57 | MHC.SL.SWA ---
Speech Pathologist Impression: Oropharyngeal Dypshagia, Risk of Aspiration Risk of Aspiration Due to: Neurological Condition Dysphasia Diet Status: No Change. Continue supplemental feeding (NDD1/NTL) as tolerated. Meds via TF. Liquid Consistency and Strategies for Safe Swallow: Liquid Intake Recommendation: [place] Thick Liquid Intake Strategies: Small Sips No Straws Liquids by Teaspoon Only Solid Food Consistency: Dietary Recommendations: Pureed (NDD1) Additional Modifications to Solid Foods: Supplemental PO puree/nectar thick via tspn only with 1:1 assist as tolerated. Meds via TF. Discontinue feeding if he evidences any overt signs aspiration. Oral Medication Intake: NPO (via TF) Please contact the pharmacy regarding appropriate crushable or liquid drug formulations that are available whenever modified delivery is recommended. Compensatory Strategies and Precautions to be Taken for Safe Swallow: Sitting Upright (90 deg) during and for 30-45 min after PO intake Double Swallow No Straw Liquids from Spoon Small Bites and Sips Alternate Liquids/Solids Rate of Ingestion Change Oral Check Supervision While Eating and Drinking for Safe Swallow: Total Assistance (1:1) Swallowing Recommended Treatments: Compens. Strategy Educat. Recommendation for Speech: Inpatient Speech Therapy Comment: [facility] will continue to follow during hospital stay Frequency/Duration: M-F Date Range for Service Req: Timeline to reassess: PRN Elevator Dispatcher Clinican/Clinical Fellow: No Supervisory Statement: I have reviewed and agree with the student/clinical fellow's documentation: N/A Speech Language Pathologist: Bonnie Mora M.A., [facility]
[2024-08-29 21:04] LABS: Glucose, Whole Blood 226 mg/dL (60-115)
[2024-08-30] MEDS: ondansetron HCL 4 MG/2 ML VIAL IVPUSH ×3 (01:13→23:38)
[2024-08-30 03:59] VITALS: BP 125/72; RESP 18; TEMP 36.5; O2SAT 97
[2024-08-30] MEDS: Omeprazole/Na Bicarb Oral Susp 20 MG/10 ML UD Cup PO ×2 (05:12→17:12)
[2024-08-30 07:23] VITALS: BP 127/69; PULSE 91; RESP 18; TEMP 36.9; O2SAT 98
[2024-08-30 07:27] LABS: Glucose, Whole Blood 232 mg/dL (60-115)
[2024-08-30] MEDS: Tacrolimus 0.5 MG CAPSULE G-TUBE ×2 (08:35→20:41)
[2024-08-30] MEDS: Finasteride 5 MG TABLET PO (08:35)
[2024-08-30] MEDS: Doxazosin Mesylate 2 MG TABLET G-TUBE (08:35)
[2024-08-30] MEDS: polyethylene glycoL 3350 17 GM POWD.PACK G-TUBE (08:35)
[2024-08-30] MEDS: Tenofovir Disoproxil Fumarate 300 MG TABLET G-TUBE (08:35)
[2024-08-30] MEDS: Atorvastatin Calcium 80 MG TABLET G-TUBE (08:35)
[2024-08-30] MEDS: carvediloL 6.25 MG TABLET G-TUBE ×2 (08:36→20:41)
[2024-08-30] MEDS: Insulin Glargine,Hum.rec.anlog 100 UNIT/ML 10 ML VIAL 10 UNIT SUBCUT (08:36)
[2024-08-30] MEDS: Gabapentin 100 MG CAPSULE G-TUBE ×2 (08:36→20:42)
[2024-08-30] MEDS: Insulin Lispro 100 UNIT/ML 3 ML VIAL SUBCUT ×3 (08:36→17:12)
[2024-08-30] MEDS: Multivitamin with Minerals Liq 15 ML LIQUID G-TUBE (08:36)
[2024-08-30] MEDS: 0.9 % Sodium Chloride Flush 3 ML SYRINGE IVFLUSH ×3 (08:37→20:42)
[2024-08-30] MEDS: predniSONE 5 MG TABLET G-TUBE (09:13)
[2024-08-30 10:43] VITALS: BP 118/59; PULSE 93; RESP 18; TEMP 36.6; O2SAT 95
[2024-08-30 10:53] LABS: Glucose, Whole Blood 256 mg/dL (60-115)
--- NOTE | 2024-08-30 13:32 | P.PNIM_ITS ---
Subjective Subjective Date of Service: 08/30/24 Interval History: Episode of regurgitation after meds placed through G-tube. Otherwise tolerating tube feeds Review of Systems Denies chest pain Denies shortness of breath Denies nausea vomiting diarrhea denies fever chills Physical Exam 2 Vital Signs: Vital Signs: Last Vital Signs Temp 97.9 F 08/30/24 10:43 Pulse 93 08/30/24 10:43 Resp 18 08/30/24 10:43 BP 118/59 L 08/30/24 10:43 Pulse Ox 95 08/30/24 10:43 O2 Del Method Room Air 08/30/24 10:43 O2 Flow Rate 97 08/30/24 03:59 BMI result Body Mass Index 21.9 Const: Other: No acute distress Resp: Other: Clear to auscultation bilaterally no rales rhonchi or wheezes Cardio: Other: No S4:positive S1-S2; no S3 murmurs rubs or gallops GI: Other: Soft nontender nondistended normoactive bowel sounds Extrem: Other: No edema bilaterally Objective Data Active Medications Acetaminophen (Acetaminophen 325 Mg Tablet) 650 mg G-TUBE Q6H PRN PRN Reason: Pain, Mild (Pain Scale 1-3), fever or headache Last Admin: 08/28/24 21:18 Dose: 650 mg Documented By: LEE Apixaban (Apixaban 5 Mg Tablet) 5 mg PO BID [facility] Last Admin: 08/27/24 10:49 Dose: 5 mg Documented By: BROMamadou Atorvastatin Calcium (Atorvastatin Calcium 80 Mg Tablet) 80 mg G-TUBE DAILY [facility] Last Admin: 08/30/24 08:35 Dose: 80 mg Documented By: MIGUE Bisacodyl (Bisacodyl 10 Mg Supp.Rect) 10 mg [place] DAILY PRN PRN Reason: Constipation Carvedilol (Carvedilol 6.25 Mg Tablet) 6.25 mg G-TUBE BID [facility]; Protocol Last Admin: 08/30/24 08:36 Dose: 6.25 mg Documented By: MIGUE Diphenhydramine HCl (Diphenhydramine Hcl 50 Mg/Ml Vial) 25 mg IVPUSH Q4H PRN PRN Reason: Itching Last Admin: 08/29/24 21:40 Dose: 25 mg Documented By: FRANCISCO Doxazosin Mesylate (Doxazosin Mesylate 2 Mg Tablet) 2 mg G-TUBE DAILY [facility]; Protocol Last Admin: 08/30/24 08:35 Dose: 2 mg Documented By: MIGUE Finasteride (Finasteride 5 Mg Tablet) 5 mg PO DAILY [facility] Last Admin: 08/30/24 08:35 Dose: 5 mg Documented By: MIGUE Gabapentin (Gabapentin 100 Mg Capsule) 100 mg G-TUBE BID [facility] Last Admin: 08/30/24 08:36 Dose: 100 mg Documented By: MIGUE Insulin Glargine (Insulin Glargine,Hum.Rec.Anlog 100 Unit/Ml 10 Ml Vial) 10 unit SUBCUT DAILY [facility] Last Admin: 08/30/24 08:36 Dose: 10 unit Documented By: MIGUE Insulin Human Lispro (Insulin Lispro 100 Unit/Ml 3 Ml Vial) 0 unit SUBCUT QIDACHS [facility]; Protocol Last Admin: 08/30/24 08:36 Dose: 4 unit Documented By: MIGUE Lidocaine (Lidocaine 4 % Patch Adh..Patch) 1 patch TRANSDERMA DAILY PRN; Protocol PRN Reason: Back Pain Lidocaine (Lidocaine 4 % Patch Adh..Patch) 1 patch TRANSDERMA DAILY PRN; Protocol PRN Reason: SHOULDER PAIN Magnesium Hydroxide (Milk Of Magnesia 30 Ml Oral.Susp) 30 ml G-TUBE DAILY PRN PRN Reason: Constipation Metoclopramide HCl (Metoclopramide Hcl 10 Mg Tablet) 10 mg G-TUBE Q6H PRN PRN Reason: GERD Last Admin: 08/29/24 12:45 Dose: 10 mg Documented By: JESSICA Multivitamins/Minerals (Multivitamin With Minerals Liq 15 Ml Liquid) 15 ml G- TUBE DAILY [facility] Last Admin: 08/30/24 08:36 Dose: 15 ml Documented By: MIGUE Omeprazole (Omeprazole/Na Bicarb Oral Susp 20 Mg/10 Ml Ud Cup) 20 mg PO BID@0630,1630 [facility] Last Admin: 08/30/24 05:12 Dose: 20 mg Documented By: FRANCISCO Ondansetron HCl (Ondansetron Hcl 4 Mg/2 Ml Vial) 4 mg IVPUSH Q8H PRN PRN Reason: Nausea and Vomiting Last Admin: 08/30/24 09:26 Dose: 4 mg Documented By: MIGUE Polyethylene Glycol (Polyethylene Glycol 3350 17 Gm Powd.Pack) 17 gm G-TUBE DAILY [facility] Last Admin: 08/30/24 08:35 Dose: 17 gm Documented By: MIGUE Prednisone (Prednisone 5 Mg Tablet) 5 mg G-TUBE DAILY [facility] Last Admin: 08/30/24 09:13 Dose: 5 mg Documented By: MIGUE Senna (Sennosides Oral Syrup 8.8 Mg/5 Ml) 8.8 mg G-TUBE BID PRN PRN Reason: Constipation Sodium Chloride (0.9 % Sodium Chloride Flush 3 Ml Syringe) 3 ml IVFLUSH QSHIFT [facility] Last Admin: 08/30/24 08:37 Dose: 3 ml Documented By: MIGUE Tacrolimus (Tacrolimus 0.5 Mg Capsule) 0.5 mg G-TUBE BID [facility] Last Admin: 08/30/24 08:35 Dose: 0.5 mg Documented By: MIGUE Tenofovir Disoproxil Fumarate (Tenofovir Disoproxil Fumarate 300 Mg Tablet) 300 mg G-TUBE DAILY [facility] Last Admin: 08/30/24 08:35 Dose: 300 mg Documented By: MIGUE Labs 08/29/24 05:57 08/29/24 05:57 Labs: Laboratory Results - last 24 hr 08/29/24 08/29/24 08/30/24 16:17 20:57 07:21 POC Glucose 172 H 226 H 232 H 08/30/24 10:46 POC Glucose 256 H Assessment and Plan (1) Acute upper gastrointestinal bleeding: Status: Acute (2) Insulin dependent type 2 diabetes mellitus: Status: Acute Plan d4 for 63yo M sent in from [facility] SNF with PMHx CVA/L hemiparesis, dysphagia with GJ tube, PVD, ESRD s/p kidney transplant, HCV cirrhosis s/p liver transplant, DM2, pAF on apixaban, hx polysubstance abuse presented to ED 08/20 with dizziness, N/V, chest pain; had tested positive for Covid-19 08/09 family appealed discharge back to [facility] and requested placement elsewhere admitted for cofee-ground emesis, CT bleeding scan negative for acute bleed, H+H stable 1.Acute UGIB due to erosive esophagitis - H+H stable, continue PPI -resumed tube feeds now that G-tube patent... Nutritional recommendations instituted -DC oral diet and follow 2. Paroxysmal atrial fibrillation -sinus rhythm presently -continue carvedilol/apixaban -adjust therapies as clinically indicated 3.Kidney/liver transplant - continue tacrolimus + prednisone 3.DM2 -acceptable control on current therapies -lispro correctional scale -adjust as indicated Lovenox Full code dispo - awaiting STR placement Quality Stroke Does the patient have a stroke diagnosis?: No VTE Prior VTE?: No VTE Risk Level:: Medical - moderate - high VTE Device Contraindication: N/A - Device Ordered VTE Drug Contraindication: Treatment Not Indicated
[2024-08-30 16:00] VITALS: BP 130/63; PULSE 101; RESP 18; TEMP 36.4; O2SAT 97
[2024-08-30 16:24] LABS: Glucose, Whole Blood 157 mg/dL (60-115)
--- NOTE | 2024-08-30 16:32 | PC.NURSE ---
patient has been vomiting brown emesis all day
[2024-08-30 19:52] VITALS: BP 114/65; PULSE 100; RESP 18; TEMP 37; O2SAT 95
[2024-08-30 20:26] LABS: Glucose, Whole Blood 128 mg/dL (60-115)
[2024-08-30] MEDS: diphenhydrAMINE HCL 50 MG/ML VIAL 25 MG IVPUSH (23:38)
[2024-08-30 23:54] VITALS: BP 131/75; PULSE 95; RESP 18; TEMP 36.5; O2SAT 94
[2024-08-31 03:56] VITALS: BP 134/61; PULSE 99; RESP 18; TEMP 36.6; O2SAT 96
[2024-08-31] MEDS: Omeprazole/Na Bicarb Oral Susp 20 MG/10 ML UD Cup PO ×2 (06:44→18:35)
[2024-08-31 07:56] LABS: MANUAL DIFF FLAG NO
[2024-08-31 08:00] VITALS: BP 161/60; PULSE 83; RESP 18; TEMP 36.8; O2SAT 96
[2024-08-31 08:04] LABS: Basophils Percent Auto 0.4 % (0-2); Eosinophils Absolute Auto 0.6 X10*3/uL (0.0-0.4); Eosinophils Percent Auto 7.8 % (0-4); Hematocrit 33.3 % (42.0-52.0); Hemoglobin 10.2 g/dl (14.0-18.0); Imm Gran Abs Auto 0.02 X10*3/uL (0.00-0.03); Imm Gran Pct Auto 0.3 % (0.0-0.4); Lymphocytes Absolute Auto 2.4 X10*3/uL (1.2-4.9); Lymphocytes Percent Auto 31.3 % (20-40); Mean Corpuscular HGB Conc 30.6 g/dl (31.0-36.0); Mean Corpuscular Hemoglobin 23.2 pg (27.0-33.0); Mean Corpuscular Volume 75.7 fL (80.0-98.0); Mean Platelet Volume 10.5 fL (9.4-12.4); Monocytes Absolute Auto 0.8 X10*3/uL (0.1-1.2); Monocytes Percent Auto 10.6 % (2-11); Neutrophils Absolute Auto 3.8 x10*3/uL (2.0-8.3); Neutrophils Percent Auto 49.6 % (45-73); Platelet Count 297 X10*3/uL (160-400); Red Cell Distribution Width 16.5 % (11.0-16.0); White Blood Count 7.6 X10*3/uL (4.8-10.8)
[2024-08-31 08:33] LABS: Alanine Aminotransferase 35 U/L (0-40); Albumin Level 3.2 g/dL (3.5-5.0); Alkaline Phosphatase 183 U/L (39-117); Anion Gap 13 (12-20); Aspartate Amino Transferase 42 U/L (5-37); Bilirubin Total 0.4 mg/dL (0.0-1.0); Blood Urea Nitrogen 12 mg/dL (9-16); Calcium 9.3 mg/dL (8.4-10.2); Carbon Dioxide 29 mmol/L (22-29); Chloride 99 mmol/L (96-108); Creatinine Clr Calc Pharmacy 79.8; Estimated Glomerular Filt Rate > 60; Glucose Fasting 220 mg/dL (60-99); Sodium 138 mmol/L (135-145); Total Protein 8.2 g/dL (6.5-8.0)
[2024-08-31] MEDS: Multivitamin with Minerals Liq 15 ML LIQUID G-TUBE (10:26)
[2024-08-31] MEDS: polyethylene glycoL 3350 17 GM POWD.PACK G-TUBE (10:26)
[2024-08-31] MEDS: Doxazosin Mesylate 2 MG TABLET G-TUBE (10:27)
[2024-08-31] MEDS: carvediloL 6.25 MG TABLET G-TUBE ×2 (10:27→20:44)
[2024-08-31] MEDS: Finasteride 5 MG TABLET PO (10:27)
[2024-08-31] MEDS: Gabapentin 100 MG CAPSULE G-TUBE ×2 (10:27→20:44)
[2024-08-31] MEDS: Tenofovir Disoproxil Fumarate 300 MG TABLET G-TUBE (10:27)
[2024-08-31] MEDS: Atorvastatin Calcium 80 MG TABLET G-TUBE (10:27)
[2024-08-31] MEDS: Tacrolimus 0.5 MG CAPSULE G-TUBE ×2 (10:27→20:45)
[2024-08-31] MEDS: Insulin Glargine,Hum.rec.anlog 100 UNIT/ML 10 ML VIAL 10 UNIT SUBCUT (10:33)
[2024-08-31] MEDS: 0.9 % Sodium Chloride Flush 3 ML SYRINGE IVFLUSH ×3 (10:33→20:45)
[2024-08-31] MEDS: Insulin Lispro 100 UNIT/ML 3 ML VIAL SUBCUT ×3 (10:33→23:22)
[2024-08-31 11:15] LABS: Glucose, Whole Blood 211 mg/dL (60-115)
[2024-08-31 11:15] LABS: Glucose, Whole Blood 215 mg/dL (60-115)
[2024-08-31 11:45] VITALS: BP 131/61; PULSE 92; RESP 18; TEMP 36.4; O2SAT 96
[2024-08-31] MEDS: predniSONE 5 MG TABLET G-TUBE (12:40)
--- NOTE | 2024-08-31 13:46 | HO.PM.IMPN ---
Subjective Subjective Date of Service: 08/31/24 Interval History: No acute issues overnight Review of Systems Denies chest pain Denies shortness of breath Denies nausea vomiting diarrhea denies fever chills Physical Exam Vital Signs: Vital Signs: Last Vital Signs Temp 97.6 F 08/31/24 11:45 Pulse 92 08/31/24 11:45 Resp 18 08/31/24 11:45 BP 131/61 08/31/24 11:45 Pulse Ox 96 08/31/24 11:45 O2 Del Method Room Air 08/31/24 11:45 O2 Flow Rate 97 08/30/24 03:59 BMI result Body Mass Index 21.9 Const: Other: No acute distress Resp: Other: Clear to auscultation bilaterally no rales rhonchi or wheezes Cardio: Other: No S4:positive S1-S2; no S3 murmurs rubs or gallops GI: Other: Soft nontender nondistended normoactive bowel sounds Extrem: Other: No edema bilaterally Objective Data Active Medications Acetaminophen (Acetaminophen 325 Mg Tablet) 650 mg G-TUBE Q6H PRN PRN Reason: Pain, Mild (Pain Scale 1-3), fever or headache Last Admin: 08/28/24 21:18 Dose: 650 mg Documented By: LEE Apixaban (Apixaban 5 Mg Tablet) 5 mg PO BID [facility] Last Admin: 08/27/24 10:49 Dose: 5 mg Documented By: ANALIA Atorvastatin Calcium (Atorvastatin Calcium 80 Mg Tablet) 80 mg G-TUBE DAILY [facility] Last Admin: 08/31/24 10:27 Dose: 80 mg Documented By: MIGUE Bisacodyl (Bisacodyl 10 Mg Supp.Rect) 10 mg [place] DAILY PRN PRN Reason: Constipation Carvedilol (Carvedilol 6.25 Mg Tablet) 6.25 mg G-TUBE BID [facility]; Protocol Last Admin: 08/31/24 10:27 Dose: 6.25 mg Documented By: MIGUE Diphenhydramine HCl (Diphenhydramine Hcl 50 Mg/Ml Vial) 25 mg IVPUSH Q4H PRN PRN Reason: Itching Last Admin: 08/30/24 23:38 Dose: 25 mg Documented By: MARCELLA Doxazosin Mesylate (Doxazosin Mesylate 2 Mg Tablet) 2 mg G-TUBE DAILY [facility]; Protocol Last Admin: 08/31/24 10:27 Dose: 2 mg Documented By: MIGUE Finasteride (Finasteride 5 Mg Tablet) 5 mg PO DAILY [facility] Last Admin: 08/31/24 10:27 Dose: 5 mg Documented By: MIGUE Gabapentin (Gabapentin 100 Mg Capsule) 100 mg G-TUBE BID [facility] Last Admin: 08/31/24 10:27 Dose: 100 mg Documented By: MIGUE Insulin Glargine (Insulin Glargine,Hum.Rec.Anlog 100 Unit/Ml 10 Ml Vial) 10 unit SUBCUT DAILY [facility] Last Admin: 08/31/24 10:33 Dose: 10 unit Documented By: MIGUE Insulin Human Lispro (Insulin Lispro 100 Unit/Ml 3 Ml Vial) 0 unit SUBCUT QIDACHS [facility]; Protocol Last Admin: 08/31/24 12:42 Dose: 4 unit Documented By: MIGUE Lidocaine (Lidocaine 4 % Patch Adh..Patch) 1 patch TRANSDERMA DAILY PRN; Protocol PRN Reason: Back Pain Lidocaine (Lidocaine 4 % Patch Adh..Patch) 1 patch TRANSDERMA DAILY PRN; Protocol PRN Reason: SHOULDER PAIN Magnesium Hydroxide (Milk Of Magnesia 30 Ml Oral.Susp) 30 ml G-TUBE DAILY PRN PRN Reason: Constipation Metoclopramide HCl (Metoclopramide Hcl 10 Mg Tablet) 10 mg G-TUBE Q6H PRN PRN Reason: GERD Last Admin: 08/29/24 12:45 Dose: 10 mg Documented By: JESSICA Multivitamins/Minerals (Multivitamin With Minerals Liq 15 Ml Liquid) 15 ml G-TUBE DAILY [facility] Last Admin: 08/31/24 10:26 Dose: 15 ml Documented By: MIGUE Omeprazole (Omeprazole/Na Bicarb Oral Susp 20 Mg/10 Ml Ud Cup) 20 mg PO BID@0630,1630 [facility] Last Admin: 08/31/24 06:44 Dose: 20 mg Documented By: MARCELLA Ondansetron HCl (Ondansetron Hcl 4 Mg/2 Ml Vial) 4 mg IVPUSH Q8H PRN PRN Reason: Nausea and Vomiting Last Admin: 08/30/24 23:38 Dose: 4 mg Documented By: MARCELLA Polyethylene Glycol (Polyethylene Glycol 3350 17 Gm Powd.Pack) 17 gm G-TUBE DAILY [facility] Last Admin: 08/31/24 10:26 Dose: 17 gm Documented By: MIGUE Prednisone (Prednisone 5 Mg Tablet) 5 mg G-TUBE DAILY [facility] Last Admin: 08/31/24 12:40 Dose: 5 mg Documented By: MIGUE Senna (Sennosides Oral Syrup 8.8 Mg/5 Ml) 8.8 mg G-TUBE BID PRN PRN Reason: Constipation Sodium Chloride (0.9 % Sodium Chloride Flush 3 Ml Syringe) 3 ml IVFLUSH QSHIFT [facility] Last Admin: 08/31/24 10:33 Dose: 3 ml Documented By: MIGUE Tacrolimus (Tacrolimus 0.5 Mg Capsule) 0.5 mg G-TUBE BID [facility] Last Admin: 08/31/24 10:27 Dose: 0.5 mg Documented By: MIGUE Tenofovir Disoproxil Fumarate (Tenofovir Disoproxil Fumarate 300 Mg Tablet) 300 mg G-TUBE DAILY [facility] Last Admin: 08/31/24 10:27 Dose: 300 mg Documented By: MIGUE Labs 08/31/24 07:43 08/31/24 07:43 Labs: Laboratory Results - last 24 hr 08/30/24 08/30/24 08/31/24 16:03 20:15 07:29 MCV MCH MCHC RDW Plt Count MPV Immature Gran % (Auto) Neut % (Auto) Lymph % (Auto) [place] % (Auto) Eos % (Auto) Baso % (Auto) Lymph # (Auto) [place] # (Auto) Eos # (Auto) Baso # (Auto) Abs Immat Gran (auto) Absolute Neuts (auto) Absolute Nucleated RBC Nucleated RBC % (auto) Anion Gap Estim Creat Clear Calc Estimated GFR POC Glucose 157 H 128 H 215 H Fasting Glucose Calcium Total Bilirubin AST ALT Alkaline Phosphatase Total Protein Albumin 08/31/24 08/31/24 07:43 11:11 MCV 75.7 L MCH 23.2 L MCHC 30.6 L RDW 16.5 H Plt Count 297 MPV 10.5 Immature Gran % (Auto) 0.3 Neut % (Auto) 49.6 Lymph % (Auto) 31.3 [place] % (Auto) 10.6 Eos % (Auto) 7.8 H Baso % (Auto) 0.4 Lymph # (Auto) 2.4 [place] # (Auto) 0.8 Eos # (Auto) 0.6 H Baso # (Auto) 0.0 Abs Immat Gran (auto) 0.02 Absolute Neuts (auto) 3.8 Absolute Nucleated RBC 0.000 Nucleated RBC % (auto) 0.0 Anion Gap 13 Estim Creat Clear Calc 79.8 Estimated GFR > 60 POC Glucose 211 H Fasting Glucose 220 H Calcium 9.3 Total Bilirubin 0.4 AST 42 H ALT 35 Alkaline Phosphatase 183 H Total Protein 8.2 H Albumin 3.2 L Assessment and Plan (1) Acute upper gastrointestinal bleeding: Status: Acute (2) Insulin dependent type 2 diabetes mellitus: Status: Acute Plan d4 for 63yo M sent in from [facility] SNF with PMHx CVA/L hemiparesis, dysphagia with GJ tube, PVD, ESRD s/p kidney transplant, HCV cirrhosis s/p liver transplant, DM2, pAF on apixaban, hx polysubstance abuse presented to ED 08/20 with dizziness, N/V, chest pain; had tested positive for Covid-19 08/09 family appealed discharge back to [facility] and requested placement elsewhere admitted for cofee-ground emesis, CT bleeding scan negative for acute bleed, H+H stable 1.Acute UGIB due to erosive esophagitis - H+H stable, continue PPI -remains tolerant of tube feedings 2. Paroxysmal atrial fibrillation -sinus rhythm presently -continue carvedilol/apixaban -adjust therapies as clinically indicated 3.Kidney/liver transplant - continue tacrolimus + prednisone 3.DM2 -acceptable control on current therapies -lispro correctional scale -adjust as indicated Lovenox Full code dispo - awaiting STR placement Quality Stroke Does the patient have a stroke diagnosis?: No VTE Prior VTE?: No VTE Risk Level:: Medical - moderate - high VTE Device Contraindication: N/A - Device Ordered VTE Drug Contraindication: Treatment Not Indicated
[2024-08-31 15:20] LABS: Glucose, Whole Blood 150 mg/dL (60-115)
[2024-08-31 16:00] VITALS: BP 122/56; PULSE 87; RESP 18; TEMP 37.1; O2SAT 93
--- NOTE | 2024-08-31 18:36 | PC.NURSE ---
called kitchen for tube feed nutrition replacement, kitchen states not available. current container will empty by 1999 pm. notified.
[2024-08-31 20:00] VITALS: BP 155/75; PULSE 104; TEMP 36.8; O2SAT 97
[2024-08-31] MEDS: Sennosides Oral Syrup 8.8 MG/5 ML G-TUBE (20:45)
[2024-08-31 21:13] LABS: Glucose, Whole Blood 212 mg/dL (60-115)
[2024-09-01] VITALS (8 sets, daily range): BP systolic 98–160; BP diastolic 60–89; PULSE 90–103; RESP 14–20; TEMP 36.4–36.9; O2SAT 93–98
[2024-09-01] MEDS: Omeprazole/Na Bicarb Oral Susp 20 MG/10 ML UD Cup PO ×2 (05:28→16:38)
[2024-09-01 07:16] LABS: Glucose, Whole Blood 143 mg/dL (60-115)
--- NOTE | 2024-09-01 07:55 | MHC.CLN ---
F/U FEEDING TUBE RE-PLACED 08/28/24 CURRENTLY NO DIET ORDER RECOMMEND RE-STARTING NEPRO TF AT MAX GOAL RATE OF 45 ML/HOUR CONTINUOUS WITH 240 ML FREE WATER FLUSHES Q 6 HOURS PROVIDES 1944 KCALS (27.3 KCALS/KG), 87 G PROTEIN (1.22 G/KG), 1745 TOTAL ML FREE WATER FROM FORMULA AND FLUSHES (24.5 ML/KG) PUREED WITH NT LIQ DIET ALSO IN PLACE PER PEARL FISHERMAN MONITOR PO INTAKE CLOSELY IN ADDITION TO TF TOLERANCE AND LYTES
[2024-09-01] MEDS: Tenofovir Disoproxil Fumarate 300 MG TABLET G-TUBE (08:33)
[2024-09-01] MEDS: Multivitamin with Minerals Liq 15 ML LIQUID G-TUBE (08:33)
[2024-09-01] MEDS: Atorvastatin Calcium 80 MG TABLET G-TUBE (08:33)
[2024-09-01] MEDS: Insulin Glargine,Hum.rec.anlog 100 UNIT/ML 10 ML VIAL 10 UNIT SUBCUT (08:33)
[2024-09-01] MEDS: Doxazosin Mesylate 2 MG TABLET G-TUBE (08:33)
[2024-09-01] MEDS: Gabapentin 100 MG CAPSULE G-TUBE ×2 (08:34→21:53)
[2024-09-01] MEDS: Finasteride 5 MG TABLET PO (08:34)
[2024-09-01] MEDS: Tacrolimus 0.5 MG CAPSULE G-TUBE ×2 (08:34→21:53)
[2024-09-01] MEDS: 0.9 % Sodium Chloride Flush 3 ML SYRINGE IVFLUSH ×2 (08:34→14:54)
[2024-09-01] MEDS: polyethylene glycoL 3350 17 GM POWD.PACK G-TUBE (08:34)
[2024-09-01] MEDS: carvediloL 6.25 MG TABLET G-TUBE ×2 (08:34→21:53)
[2024-09-01] MEDS: predniSONE 5 MG TABLET G-TUBE (08:37)
[2024-09-01 11:49] LABS: Glucose, Whole Blood 187 mg/dL (60-115)
[2024-09-01] MEDS: Insulin Lispro 100 UNIT/ML 3 ML VIAL SUBCUT ×2 (12:45→16:38)
--- NOTE | 2024-09-01 14:31 | P.PNIM_ITS ---
Subjective Subjective Date of Service: 09/01/24 Interval History: No acute issues overnight. Tolerating tube feeds Review of Systems Denies chest pain Denies shortness of breath Denies nausea vomiting diarrhea denies fever chills Physical Exam 2 Vital Signs: Vital Signs: Last Vital Signs Temp 98.2 F 09/01/24 11:44 Pulse 90 09/01/24 11:44 Resp 14 09/01/24 11:44 BP 103/60 09/01/24 11:44 Pulse Ox 93 09/01/24 11:44 O2 Del Method Room Air 09/01/24 11:44 O2 Flow Rate 97 08/30/24 03:59 BMI result Body Mass Index 21.9 Const: Other: No acute distress Resp: Other: Clear to auscultation bilaterally no rales rhonchi or wheezes Cardio: Other: No S4:positive S1-S2; no S3 murmurs rubs or gallops GI: Other: Soft nontender nondistended normoactive bowel sounds Extrem: Other: No edema bilaterally Objective Data Active Medications Acetaminophen (Acetaminophen 325 Mg Tablet) 650 mg G-TUBE Q6H PRN PRN Reason: Pain, Mild (Pain Scale 1-3), fever or headache Last Admin: 08/28/24 21:18 Dose: 650 mg Documented By: LEE Apixaban (Apixaban 5 Mg Tablet) 5 mg PO BID [facility] Last Admin: 08/27/24 10:49 Dose: 5 mg Documented By: DOVVIIEN Atorvastatin Calcium (Atorvastatin Calcium 80 Mg Tablet) 80 mg G-TUBE DAILY [facility] Last Admin: 09/01/24 08:33 Dose: 80 mg Documented By: JARRED Bisacodyl (Bisacodyl 10 Mg Supp.Rect) 10 mg [place] DAILY PRN PRN Reason: Constipation Carvedilol (Carvedilol 6.25 Mg Tablet) 6.25 mg G-TUBE BID [facility]; Protocol Last Admin: 09/01/24 08:34 Dose: 6.25 mg Documented By: JARRED Diphenhydramine HCl (Diphenhydramine Hcl 50 Mg/Ml Vial) 25 mg IVPUSH Q4H PRN PRN Reason: Itching Last Admin: 08/30/24 23:38 Dose: 25 mg Documented By: MARCELLA Doxazosin Mesylate (Doxazosin Mesylate 2 Mg Tablet) 2 mg G-TUBE DAILY [facility]; Protocol Last Admin: 09/01/24 08:33 Dose: 2 mg Documented By: JARRED Finasteride (Finasteride 5 Mg Tablet) 5 mg PO DAILY [facility] Last Admin: 09/01/24 08:34 Dose: 5 mg Documented By: JARRED Gabapentin (Gabapentin 100 Mg Capsule) 100 mg G-TUBE BID [facility] Last Admin: 09/01/24 08:34 Dose: 100 mg Documented By: JARRED Insulin Glargine (Insulin Glargine,Hum.Rec.Anlog 100 Unit/Ml 10 Ml Vial) 10 unit SUBCUT DAILY [facility] Last Admin: 09/01/24 08:33 Dose: 10 unit Documented By: JARRED Insulin Human Lispro (Insulin Lispro 100 Unit/Ml 3 Ml Vial) 0 unit SUBCUT QIDACHS [facility]; Protocol Last Admin: 09/01/24 12:45 Dose: 2 unit Documented By: JARRED Lidocaine (Lidocaine 4 % Patch Adh..Patch) 1 patch TRANSDERMA DAILY PRN; Protocol PRN Reason: Back Pain Lidocaine (Lidocaine 4 % Patch Adh..Patch) 1 patch TRANSDERMA DAILY PRN; Protocol PRN Reason: SHOULDER PAIN Magnesium Hydroxide (Milk Of Magnesia 30 Ml Oral.Susp) 30 ml G-TUBE DAILY PRN PRN Reason: Constipation Metoclopramide HCl (Metoclopramide Hcl 10 Mg Tablet) 10 mg G-TUBE Q6H PRN PRN Reason: GERD Last Admin: 08/29/24 12:45 Dose: 10 mg Documented By: JESSICA Multivitamins/Minerals (Multivitamin With Minerals Liq 15 Ml Liquid) 15 ml G- TUBE DAILY [facility] Last Admin: 09/01/24 08:33 Dose: 15 ml Documented By: JARRED Omeprazole (Omeprazole/Na Bicarb Oral Susp 20 Mg/10 Ml Ud Cup) 20 mg PO BID@0630,1630 [facility] Last Admin: 09/01/24 05:28 Dose: 20 mg Documented By: WANDER Ondansetron HCl (Ondansetron Hcl 4 Mg/2 Ml Vial) 4 mg IVPUSH Q8H PRN PRN Reason: Nausea and Vomiting Last Admin: 08/30/24 23:38 Dose: 4 mg Documented By: MARCELLA Polyethylene Glycol (Polyethylene Glycol 3350 17 Gm Powd.Pack) 17 gm G-TUBE DAILY [facility] Last Admin: 09/01/24 08:34 Dose: 17 gm Documented By: JARRED Prednisone (Prednisone 5 Mg Tablet) 5 mg G-TUBE DAILY [facility] Last Admin: 09/01/24 08:37 Dose: 5 mg Documented By: JARRED Senna (Sennosides Oral Syrup 8.8 Mg/5 Ml) 8.8 mg G-TUBE BID PRN PRN Reason: Constipation Last Admin: 08/31/24 20:45 Dose: 8.8 mg Documented By: WANDER Sodium Chloride (0.9 % Sodium Chloride Flush 3 Ml Syringe) 3 ml IVFLUSH QSHIFT [facility] Last Admin: 09/01/24 08:34 Dose: 3 ml Documented By: JARRED Tacrolimus (Tacrolimus 0.5 Mg Capsule) 0.5 mg G-TUBE BID [facility] Last Admin: 09/01/24 08:34 Dose: 0.5 mg Documented By: JARRED Tenofovir Disoproxil Fumarate (Tenofovir Disoproxil Fumarate 300 Mg Tablet) 300 mg G-TUBE DAILY [facility] Last Admin: 09/01/24 08:33 Dose: 300 mg Documented By: JARRED Labs 08/31/24 07:43 08/31/24 07:43 Labs: Laboratory Results - last 24 hr 08/31/24 08/31/24 09/01/24 15:17 21:10 07:07 POC Glucose 150 H 212 H 143 H 09/01/24 11:41 POC Glucose 187 H Assessment and Plan (1) Acute upper gastrointestinal bleeding: Status: Acute (2) Insulin dependent type 2 diabetes mellitus: Status: Acute Plan d4 for 63yo M sent in from [facility] with PMHx CVA/L hemiparesis, dysphagia with GJ tube, PVD, ESRD s/p kidney transplant, HCV cirrhosis s/p liver transplant, DM2, pAF on apixaban, hx polysubstance abuse presented to ED 08/20 with dizziness, N/V, chest pain; had tested positive for Covid-19 08/09 family appealed discharge back to [facility] and requested placement elsewhere admitted for cofee-ground emesis, CT bleeding scan negative for acute bleed, H+H stable 1.Acute UGIB due to erosive esophagitis - H+H stable, continue PPI -remains tolerant of tube feedings -hopeful DC in a.m. 2. Paroxysmal atrial fibrillation -sinus rhythm presently -continue carvedilol/apixaban -adjust therapies as clinically indicated 3.Kidney/liver transplant - continue tacrolimus + prednisone 3.DM2 -acceptable control on current therapies -lispro correctional scale -adjust as indicated Lovenox Full code dispo - awaiting STR placement Quality Stroke Does the patient have a stroke diagnosis?: No VTE Prior VTE?: No VTE Risk Level:: Medical - moderate - high VTE Device Contraindication: N/A - Device Ordered VTE Drug Contraindication: Treatment Not Indicated
--- NOTE | 2024-09-01 15:36 | MHC.SL.SWA ---
Speech Pathologist Impression: Moderate to significant pharyngeal dysphagia Risk of Aspiration Due to: Neurological Condition Dysphasia Diet Status: Liquid Consistency and Strategies for Safe Swallow: Liquid Intake Recommendation: [place] Thick Liquid Intake Strategies: Small Sips No Straws Liquids by Teaspoon Only Solid Food Consistency: Dietary Recommendations: Pureed (NDD1) Additional Modifications to Solid Foods: Supplemental PO puree/nectar thick via tspn only with 1:1 assist as tolerated. Meds via TF. Discontinue feeding if he evidences any overt signs aspiration. Oral Medication Intake: NPO Please contact the pharmacy regarding appropriate crushable or liquid drug formulations that are available whenever modified delivery is recommended. Compensatory Strategies and Precautions to be Taken for Safe Swallow: Sitting Upright (90 deg) Liquids from Cup Small Bites and Sips Rate of Ingestion Change Supervision While Eating and Drinking for Safe Swallow: Total Assistance (1:1) Foods to Avoid: Swallowing Recommended Treatments: Compens. Strategy Educat. Recommendation for Speech: Inpatient Speech Therapy Comment: Patient from [facility], w/ GJ tube, hx of dysphagia s/p CVA, remains at risk for aspiration d/t severity of pharyngeal swallow dysfunction Frequency/Duration: M-F Date Range for Service Req: Timeline to reassess: PRN Hadoop Architect Clinican/Clinical Fellow: No Supervisory Statement: I have reviewed and agree with the student/clinical fellow's documentation: N/A Speech Language Pathologist: Gabrielle Roman M.S., [facility]
[2024-09-01 16:21] LABS: Glucose, Whole Blood 173 mg/dL (60-115)
[2024-09-01 21:00] LABS: Glucose, Whole Blood 122 mg/dL (60-115)
[2024-09-01] MEDS: diphenhydrAMINE HCL 50 MG/ML VIAL 25 MG IVPUSH (22:00)
[2024-09-02] VITALS (8 sets, daily range): BP systolic 102–144; BP diastolic 58–69; PULSE 80–99; RESP 15–20; TEMP 36.3–37.5; O2SAT 95–99
[2024-09-02] MEDS: ondansetron HCL 4 MG/2 ML VIAL IVPUSH (04:29)
--- NOTE | 2024-09-02 04:34 | PC.NURSE ---
patient feeling nauseous and spitting clear liquid into emesis bag. iv zofran given and holding tube feed for now OK by dr hernandes.
[2024-09-02 07:30] LABS: Glucose, Whole Blood 220 mg/dL (60-115)
[2024-09-02] MEDS: Insulin Glargine,Hum.rec.anlog 100 UNIT/ML 10 ML VIAL 10 UNIT SUBCUT (08:05)
[2024-09-02] MEDS: 0.9 % Sodium Chloride Flush 3 ML SYRINGE IVFLUSH ×3 (08:05→21:21)
[2024-09-02] MEDS: Insulin Lispro 100 UNIT/ML 3 ML VIAL SUBCUT ×3 (08:05→21:20)
[2024-09-02] MEDS: Finasteride 5 MG TABLET PO (08:06)
[2024-09-02] MEDS: Tacrolimus 0.5 MG CAPSULE G-TUBE ×2 (08:06→21:20)
[2024-09-02] MEDS: Multivitamin with Minerals Liq 15 ML LIQUID G-TUBE (08:06)
[2024-09-02] MEDS: carvediloL 6.25 MG TABLET G-TUBE ×2 (08:06→21:20)
[2024-09-02] MEDS: polyethylene glycoL 3350 17 GM POWD.PACK G-TUBE (08:06)
[2024-09-02] MEDS: Atorvastatin Calcium 80 MG TABLET G-TUBE (08:06)
[2024-09-02] MEDS: Acetaminophen 325 MG TABLET 650 MG G-TUBE (08:06)
[2024-09-02] MEDS: predniSONE 5 MG TABLET G-TUBE (08:06)
[2024-09-02] MEDS: Doxazosin Mesylate 2 MG TABLET G-TUBE (08:06)
[2024-09-02] MEDS: Metoclopramide HCl 10 MG TABLET G-TUBE (08:06)
[2024-09-02] MEDS: Tenofovir Disoproxil Fumarate 300 MG TABLET G-TUBE (08:06)
[2024-09-02] MEDS: Gabapentin 100 MG CAPSULE G-TUBE ×2 (08:06→21:20)
[2024-09-02] MEDS: Diatrizoate Meglumine, Sodium 30 ML SOLUTION PO (08:33)
[2024-09-02 09:20] LABS: MANUAL DIFF FLAG NO
[2024-09-02 09:23] LABS: Basophils Percent Auto 0.6 % (0-2); Eosinophils Absolute Auto 0.5 X10*3/uL (0.0-0.4); Eosinophils Percent Auto 7.6 % (0-4); Hematocrit 33.3 % (42.0-52.0); Hemoglobin 10.2 g/dl (14.0-18.0); Imm Gran Abs Auto 0.01 X10*3/uL (0.00-0.03); Imm Gran Pct Auto 0.1 % (0.0-0.4); Lymphocytes Absolute Auto 2.2 X10*3/uL (1.2-4.9); Lymphocytes Percent Auto 32.5 % (20-40); Mean Corpuscular HGB Conc 30.6 g/dl (31.0-36.0); Mean Corpuscular Hemoglobin 23.1 pg (27.0-33.0); Mean Corpuscular Volume 75.3 fL (80.0-98.0); Mean Platelet Volume 10.7 fL (9.4-12.4); Monocytes Absolute Auto 0.7 X10*3/uL (0.1-1.2); Monocytes Percent Auto 10.1 % (2-11); Neutrophils Absolute Auto 3.4 x10*3/uL (2.0-8.3); Neutrophils Percent Auto 49.1 % (45-73); Platelet Count 299 X10*3/uL (160-400); Red Blood Count 4.42 X10*6/uL (4.60-5.80); Red Cell Distribution Width 16.8 % (11.0-16.0); White Blood Count 6.9 X10*3/uL (4.8-10.8)
[2024-09-02 10:04] LABS: Alanine Aminotransferase 33 U/L (0-40); Albumin Level 3.3 g/dL (3.5-5.0); Alkaline Phosphatase 168 U/L (39-117); Anion Gap 12 (12-20); Aspartate Amino Transferase 38 U/L (5-37); Bilirubin Total 0.4 mg/dL (0.0-1.0); Blood Urea Nitrogen 14 mg/dL (9-16); Calcium 9.5 mg/dL (8.4-10.2); Carbon Dioxide 32 mmol/L (22-29); Chloride 100 mmol/L (96-108); Creatinine Clr Calc Pharmacy 75.8; Estimated Glomerular Filt Rate > 60; Glucose Random 203 mg/dL (60-115); Potassium 2.8 mmol/L (3.3-5.1); Sodium 141 mmol/L (135-145); Total Protein 8.5 g/dL (6.5-8.0)
[2024-09-02 11:43] LABS: Glucose, Whole Blood 173 mg/dL (60-115)
--- NOTE | 2024-09-02 11:53 | MHC.CLN ---
F/U DIET RESUMED PUREED WITH NT LIQ PER ASSEMBLER DRY CELL AND BATTERY CURRENTLY PT C/O NAUSEA; TF ON HOLD TEMPORARILY PT WAS RECEIVING NEPRO TF AT MAX GOAL RATE OF 45 ML/HOUR CONTINUOUS WITH 240 ML FREE WATER FLUSHES Q 6 HOURS PROVIDES 1944 KCALS (27.3 KCALS/KG), 87 G PROTEIN (1.22 G/KG), 1745 TOTAL ML FREE WATER FROM FORMULA AND FLUSHES (24.5 ML/KG) RESUME TF WHEN ABLE TO MAX GOAL RATE NOTED ABOVE MONITOR PO INTAKE CLOSELY IN ADDITION TO TF TOLERANCE AND LYTES
[2024-09-02] MEDS: Potassium Chloride/H20 10 MEQ/100 ML PIGGYBACK 100 MEQ IV ×4 (12:09→16:32)
--- NOTE | 2024-09-02 13:20 | MHC.SPEECHCO ---
Pt pending KUB xray today. Per , OK to hold off for now. BUS TROLLEY AND TAXI INSTRUCTOR monitoring.
--- NOTE | 2024-09-02 13:45 | P.PNIM_ITS ---
Subjective Subjective Date of Service: 09/02/24 Interval History: Issues with nausea overnight. Tube feeds held. No vomiting Review of Systems Denies chest pain Denies shortness of breath Denies nausea vomiting diarrhea denies fever chills Physical Exam 2 Vital Signs: Vital Signs: Last Vital Signs Temp 97.8 F 09/02/24 11:44 Pulse 85 09/02/24 11:44 Resp 18 09/02/24 11:44 BP 102/58 L 09/02/24 11:44 Pulse Ox 96 09/02/24 11:44 O2 Del Method Room Air 09/02/24 11:44 O2 Flow Rate 97 08/30/24 03:59 BMI result Body Mass Index 21.9 Const: Other: No acute distress Resp: Other: Clear to auscultation bilaterally no rales rhonchi or wheezes Cardio: Other: No S4:positive S1-S2; no S3 murmurs rubs or gallops GI: Other: Soft nontender nondistended normoactive bowel sounds Extrem: Other: No edema bilaterally Objective Data Active Medications Acetaminophen (Acetaminophen 325 Mg Tablet) 650 mg G-TUBE Q6H PRN PRN Reason: Pain, Mild (Pain Scale 1-3), fever or headache Last Admin: 09/02/24 08:06 Dose: 650 mg Documented By: JARRED Apixaban (Apixaban 5 Mg Tablet) 5 mg PO BID [facility] Last Admin: 08/27/24 10:49 Dose: 5 mg Documented By: ANALIA Atorvastatin Calcium (Atorvastatin Calcium 80 Mg Tablet) 80 mg G-TUBE DAILY [facility] Last Admin: 09/02/24 08:06 Dose: 80 mg Documented By: JARRED Bisacodyl (Bisacodyl 10 Mg Supp.Rect) 10 mg [place] DAILY PRN PRN Reason: Constipation Carvedilol (Carvedilol 6.25 Mg Tablet) 6.25 mg G-TUBE BID [facility]; Protocol Last Admin: 09/02/24 08:06 Dose: 6.25 mg Documented By: JARRED Diphenhydramine HCl (Diphenhydramine Hcl 50 Mg/Ml Vial) 25 mg IVPUSH Q4H PRN PRN Reason: Itching Last Admin: 09/01/24 22:00 Dose: 25 mg Documented By: RUTH Doxazosin Mesylate (Doxazosin Mesylate 2 Mg Tablet) 2 mg G-TUBE DAILY [facility]; Protocol Last Admin: 09/02/24 08:06 Dose: 2 mg Documented By: JARRED Finasteride (Finasteride 5 Mg Tablet) 5 mg PO DAILY [facility] Last Admin: 09/02/24 08:06 Dose: 5 mg Documented By: JARRED Gabapentin (Gabapentin 100 Mg Capsule) 100 mg G-TUBE BID [facility] Last Admin: 09/02/24 08:06 Dose: 100 mg Documented By: JARRED Potassium Chloride (Potassium Chloride/H20) 10 meq in 100 mls @ 100 mls/hr IV Q1H [facility] Stop: 09/02/24 15:14 Last Infusion: 09/02/24 12:45 Dose: 100 mls/hr Documented By: JARRED Insulin Glargine (Insulin Glargine,Hum.Rec.Anlog 100 Unit/Ml 10 Ml Vial) 10 unit SUBCUT DAILY [facility] Last Admin: 09/02/24 08:05 Dose: 10 unit Documented By: JARRED Insulin Human Lispro (Insulin Lispro 100 Unit/Ml 3 Ml Vial) 0 unit SUBCUT QIDACHS [facility]; Protocol Last Admin: 09/02/24 12:09 Dose: 2 unit Documented By: JARRED Lidocaine (Lidocaine 4 % Patch Adh..Patch) 1 patch TRANSDERMA DAILY PRN; Protocol PRN Reason: Back Pain Lidocaine (Lidocaine 4 % Patch Adh..Patch) 1 patch TRANSDERMA DAILY PRN; Protocol PRN Reason: SHOULDER PAIN Magnesium Hydroxide (Milk Of Magnesia 30 Ml Oral.Susp) 30 ml G-TUBE DAILY PRN PRN Reason: Constipation Metoclopramide HCl (Metoclopramide Hcl 10 Mg Tablet) 10 mg G-TUBE Q6H PRN PRN Reason: GERD Last Admin: 09/02/24 08:06 Dose: 10 mg Documented By: JARRED Multivitamins/Minerals (Multivitamin With Minerals Liq 15 Ml Liquid) 15 ml G- TUBE DAILY [facility] Last Admin: 09/02/24 08:06 Dose: 15 ml Documented By: JARRED Omeprazole (Omeprazole/Na Bicarb Oral Susp 20 Mg/10 Ml Ud Cup) 20 mg PO BID@0630,1630 [facility] Last Admin: 09/02/24 04:35 Dose: Not Given Documented By: RUTH Non-Admin Reason: Nausea Ondansetron HCl (Ondansetron Hcl 4 Mg/2 Ml Vial) 4 mg IVPUSH Q8H PRN PRN Reason: Nausea and Vomiting Last Admin: 09/02/24 04:29 Dose: 4 mg Documented By: RUTH Polyethylene Glycol (Polyethylene Glycol 3350 17 Gm Powd.Pack) 17 gm G-TUBE DAILY [facility] Last Admin: 09/02/24 08:06 Dose: 17 gm Documented By: JARRED Prednisone (Prednisone 5 Mg Tablet) 5 mg G-TUBE DAILY [facility] Last Admin: 09/02/24 08:06 Dose: 5 mg Documented By: JARRED Senna (Sennosides Oral Syrup 8.8 Mg/5 Ml) 8.8 mg G-TUBE BID PRN PRN Reason: Constipation Last Admin: 08/31/24 20:45 Dose: 8.8 mg Documented By: WANDER Sodium Chloride (0.9 % Sodium Chloride Flush 3 Ml Syringe) 3 ml IVFLUSH QSHIFT [facility] Last Admin: 09/02/24 08:05 Dose: 3 ml Documented By: JARRED Tacrolimus (Tacrolimus 0.5 Mg Capsule) 0.5 mg G-TUBE BID [facility] Last Admin: 09/02/24 08:06 Dose: 0.5 mg Documented By: JARRED Tenofovir Disoproxil Fumarate (Tenofovir Disoproxil Fumarate 300 Mg Tablet) 300 mg G-TUBE DAILY [facility] Last Admin: 09/02/24 08:06 Dose: 300 mg Documented By: JARRED Labs 09/02/24 09:00 09/02/24 09:00 Labs: Laboratory Results - last 24 hr 09/01/24 09/01/24 09/02/24 16:17 20:45 07:25 MCV MCH MCHC RDW Plt Count MPV Immature Gran % (Auto) Neut % (Auto) Lymph % (Auto) Early % (Auto) Eos % (Auto) Baso % (Auto) Lymph # (Auto) Early # (Auto) Eos # (Auto) Baso # (Auto) Abs Immat Gran (auto) Absolute Neuts (auto) Absolute Nucleated RBC Nucleated RBC % (auto) Anion Gap Estim Creat Clear Calc Estimated GFR POC Glucose 173 H 122 H 220 H Random Glucose Calcium Total Bilirubin AST ALT Alkaline Phosphatase Total Protein Albumin 09/02/24 09/02/24 09:00 11:40 MCV 75.3 L MCH 23.1 L MCHC 30.6 L RDW 16.8 H Plt Count 299 MPV 10.7 Immature Gran % (Auto) 0.1 Neut % (Auto) 49.1 Lymph % (Auto) 32.5 Early % (Auto) 10.1 Eos % (Auto) 7.6 H Baso % (Auto) 0.6 Lymph # (Auto) 2.2 Early # (Auto) 0.7 Eos # (Auto) 0.5 H Baso # (Auto) 0.0 Abs Immat Gran (auto) 0.01 Absolute Neuts (auto) 3.4 Absolute Nucleated RBC 0.000 Nucleated RBC % (auto) 0.0 Anion Gap 12 Estim Creat Clear Calc 75.8 Estimated GFR > 60 POC Glucose 173 H Random Glucose 203 H Calcium 9.5 Total Bilirubin 0.4 AST 38 H ALT 33 Alkaline Phosphatase 168 H Total Protein 8.5 H Albumin 3.3 L Assessment and Plan (1) Acute upper gastrointestinal bleeding: Status: Acute (2) Insulin dependent type 2 diabetes mellitus: Status: Acute Plan d4 for 63yo M sent in from [facility] with PMHx CVA/L hemiparesis, dysphagia with GJ tube, PVD, ESRD s/p kidney transplant, HCV cirrhosis s/p liver transplant, DM2, pAF on apixaban, hx polysubstance abuse presented to ED 08/20 with dizziness, N/V, chest pain; had tested positive for Covid-19 08/09 family appealed discharge back to [facility] and requested placement elsewhere admitted for cofee-ground emesis, CT bleeding scan negative for acute bleed, H+H stable 1.Acute UGIB due to erosive esophagitis - H+H stable, continue PPI -continues with nausea. Tube feeds held. -Gastrografin study done. Await results.. Further plans based on forthcoming data 2. Paroxysmal atrial fibrillation -sinus rhythm presently -continue carvedilol/apixaban -adjust therapies as clinically indicated 3.Kidney/liver transplant - continue tacrolimus + prednisone 3.DM2 -acceptable control on current therapies -lispro correctional scale -adjust as indicated Lovenox Full code dispo - awaiting STR placement Quality Stroke Does the patient have a stroke diagnosis?: No VTE Prior VTE?: No VTE Risk Level:: Medical - moderate - high VTE Device Contraindication: N/A - Device Ordered VTE Drug Contraindication: Treatment Not Indicated
[2024-09-02 16:38] LABS: Glucose, Whole Blood 147 mg/dL (60-115)
[2024-09-02] MEDS: Omeprazole/Na Bicarb Oral Susp 20 MG/10 ML UD Cup PO (16:42)
[2024-09-02 19:51] LABS: Glucose, Whole Blood 180 mg/dL (60-115)
[2024-09-02] MEDS: diphenhydrAMINE HCL 50 MG/ML VIAL 25 MG IVPUSH (21:21)
[2024-09-03] MEDS: ondansetron HCL 4 MG/2 ML VIAL IVPUSH (00:28)
[2024-09-03 03:39] VITALS: BP 109/55; PULSE 87; RESP 16; TEMP 36.6; O2SAT 97
[2024-09-03] MEDS: Omeprazole/Na Bicarb Oral Susp 20 MG/10 ML UD Cup PO ×2 (06:13→16:10)
[2024-09-03] MEDS: diphenhydrAMINE HCL 50 MG/ML VIAL 25 MG IVPUSH ×2 (06:36→20:14)
[2024-09-03] MEDS: Metoclopramide HCl 10 MG TABLET G-TUBE (06:36)
[2024-09-03 07:03] LABS: Glucose, Whole Blood 163 mg/dL (60-115)
[2024-09-03 08:00] VITALS: BP 127/65; PULSE 81; RESP 18; TEMP 36.3; O2SAT 97
[2024-09-03] MEDS: Insulin Lispro 100 UNIT/ML 3 ML VIAL SUBCUT ×4 (08:41→21:26)
[2024-09-03] MEDS: Tenofovir Disoproxil Fumarate 300 MG TABLET G-TUBE (08:42)
[2024-09-03] MEDS: 0.9 % Sodium Chloride Flush 3 ML SYRINGE IVFLUSH ×3 (08:42→20:14)
[2024-09-03] MEDS: Doxazosin Mesylate 2 MG TABLET G-TUBE (08:42)
[2024-09-03] MEDS: Atorvastatin Calcium 80 MG TABLET G-TUBE (08:42)
[2024-09-03] MEDS: Gabapentin 100 MG CAPSULE G-TUBE ×2 (08:42→20:14)
[2024-09-03] MEDS: carvediloL 6.25 MG TABLET G-TUBE ×2 (08:43→20:14)
[2024-09-03] MEDS: Tacrolimus 0.5 MG CAPSULE G-TUBE ×2 (08:43→20:14)
[2024-09-03] MEDS: polyethylene glycoL 3350 17 GM POWD.PACK G-TUBE (08:43)
[2024-09-03] MEDS: Finasteride 5 MG TABLET PO (08:43)
[2024-09-03] MEDS: Multivitamin with Minerals Liq 15 ML LIQUID G-TUBE (08:43)
[2024-09-03] MEDS: Insulin Glargine,Hum.rec.anlog 100 UNIT/ML 10 ML VIAL 10 UNIT SUBCUT (08:44)
[2024-09-03] MEDS: predniSONE 5 MG TABLET G-TUBE (08:46)
[2024-09-03 11:17] LABS: Glucose, Whole Blood 157 mg/dL (60-115)
[2024-09-03 11:43] VITALS: BP 115/59; PULSE 85; RESP 18; TEMP 36.4; O2SAT 99
[2024-09-03] MEDS: Magnesium Hydrox/Alum Hydrox 30 ML ORAL.SUSP G-TUBE (11:52)
--- NOTE | 2024-09-03 12:51 | MHC.SL.SWA ---
Speech Pathologist Impression: Mild oral and moderate pharyngeal dysphagia Risk of Aspiration Due to: Neurological Condition Dysphasia Diet Status: Liquid Consistency and Strategies for Safe Swallow: Liquid Intake Recommendation: [place] Thick Liquid Intake Strategies: Solid Food Consistency: Dietary Recommendations: Pureed (NDD1) Additional Modifications to Solid Foods: Supplemental PO puree/nectar thick with 1:1 assist as tolerated. Meds via TF. Discontinue feeding if he evidences any overt signs aspiration. Oral Medication Intake: NPO Please contact the pharmacy regarding appropriate crushable or liquid drug formulations that are available whenever modified delivery is recommended. Compensatory Strategies and Precautions to be Taken for Safe Swallow: Sitting Upright (90 deg) Small Bites and Sips Supervision While Eating and Drinking for Safe Swallow: Total Assistance (1:1) Foods to Avoid: Swallowing Recommended Treatments: Compens. Strategy Educat. Recommendation for Speech: Inpatient Speech Therapy Comment: Patient from [facility], w/ GJ tube Frequency/Duration: M-F Date Range for Service Req: Timeline to reassess: PRN Reinforced Concrete Inspector Clinican/Clinical Fellow: No Supervisory Statement: I have reviewed and agree with the student/clinical fellow's documentation: N/A Speech Language Pathologist: Gabrielle Roman M.S., CCC-POUND ATTENDANT
--- NOTE | 2024-09-03 13:36 | MHC.CLN ---
F/U DIET RESUMED PUREED WITH NT LIQ PER CREATIVE RECRUITER J TUBE CLOGGED AND TF ON HOLD. VISITED AT LUNCH. ATE AT LEAST 75% OF LUNCH AND NURSE REPORTS THAT ATE ALL OF BREAKFAST. WHEN ABLE, RECOMMEND CONTINUE NEPRO TF AT MAX GOAL RATE OF 45 ML/HOUR CONTINUOUS WITH 240 ML FREE WATER FLUSHES Q 6 HOURS PROVIDES 1944 KCALS (27.3 KCALS/KG), 87 G PROTEIN (1.22 G/KG), 1745 TOTAL ML FREE WATER FROM FORMULA AND FLUSHES (24.5 ML/KG) MONITOR PO INTAKE CLOSELY IN ADDITION TO TF TOLERANCE AND LYTES
--- NOTE | 2024-09-03 13:38 | PC.NURSE ---
0900 per night RN J tube was running with feeds until around 0600 j tube became clogged. tubing at bifurcation appeared to be bulging, tube feeds still connected, feeds on pause. This RN disconnected feeds and pressed on bulging tubing and tube feed colored, chunky liquid expelled from j tube. This RN attempted to unclog j tube with coca cola with no success. DR. Stewart made aware. G tube flushing well, medicated per NOV. despite this, pt has very good appetite and tolerating diet well, eating 100% of meals independently.
--- NOTE | 2024-09-03 15:06 | P.PNIM_ITS ---
Subjective Subjective Date of Service: 09/03/24 Interval History: Tolerating pureed and nectar thick liquids No acute events overnight, J-tube remains clogged Earlier had heartburn now resolved. Review of Systems All other system reviewed and are negative. Physical Exam 2 Vital Signs: Vital Signs: Last Vital Signs Temp 97.5 F 09/03/24 11:43 Pulse 85 09/03/24 11:43 Resp 18 09/03/24 11:43 BP 115/59 L 09/03/24 11:43 Pulse Ox 99 09/03/24 11:43 O2 Del Method Room Air 09/03/24 11:43 O2 Flow Rate 97 08/30/24 03:59 BMI result Body Mass Index 21.9 Const: Other: Gen: in no acute distress HEENT: sclera anicteric, moist mucus membranes Neck: supple Lungs: clear to auscultation bilaterally Heart: regular rate and rhythm, no murmurs Abd: soft, non-tender, non-distended, GJ tube site intact Ext: no edema Neuro: alert and oriented x3, L hemiparesis Psych: appropriate affect Objective Data Active Medications Acetaminophen (Acetaminophen 325 Mg Tablet) 650 mg G-TUBE Q6H PRN PRN Reason: Pain, Mild (Pain Scale 1-3), fever or headache Last Admin: 09/02/24 08:06 Dose: 650 mg Documented By: JARRED Al Hydroxide/Mg Hydroxide (Magnesium Hydrox/Alum Hydrox 30 Ml Oral.Susp) 30 ml G-TUBE Q4H PRN PRN Reason: heart burn Last Admin: 09/03/24 11:52 Dose: 30 ml Documented By: DAVID Apixaban (Apixaban 5 Mg Tablet) 5 mg PO BID [facility] Last Admin: 08/27/24 10:49 Dose: 5 mg Documented By: DOBROMamadou Atorvastatin Calcium (Atorvastatin Calcium 80 Mg Tablet) 80 mg G-TUBE DAILY [facility] Last Admin: 09/03/24 08:42 Dose: 80 mg Documented By: DAVID Bisacodyl (Bisacodyl 10 Mg Supp.Rect) 10 mg [place] DAILY PRN PRN Reason: Constipation Carvedilol (Carvedilol 6.25 Mg Tablet) 6.25 mg G-TUBE BID [facility]; Protocol Last Admin: 09/03/24 08:43 Dose: 6.25 mg Documented By: DAVID Diphenhydramine HCl (Diphenhydramine Hcl 50 Mg/Ml Vial) 25 mg IVPUSH Q4H PRN PRN Reason: Itching Last Admin: 09/03/24 06:36 Dose: 25 mg Documented By: MATT Doxazosin Mesylate (Doxazosin Mesylate 2 Mg Tablet) 2 mg G-TUBE DAILY [facility]; Protocol Last Admin: 09/03/24 08:42 Dose: 2 mg Documented By: DAVID Finasteride (Finasteride 5 Mg Tablet) 5 mg PO DAILY [facility] Last Admin: 09/03/24 08:43 Dose: 5 mg Documented By: DAVID Gabapentin (Gabapentin 100 Mg Capsule) 100 mg G-TUBE BID [facility] Last Admin: 09/03/24 08:42 Dose: 100 mg Documented By: DAVID Insulin Glargine (Insulin Glargine,Hum.Rec.Anlog 100 Unit/Ml 10 Ml Vial) 10 unit SUBCUT DAILY [facility] Last Admin: 09/03/24 08:44 Dose: 10 unit Documented By: DAVID Insulin Human Lispro (Insulin Lispro 100 Unit/Ml 3 Ml Vial) 0 unit SUBCUT QIDACHS [facility]; Protocol Last Admin: 09/03/24 11:52 Dose: 2 unit Documented By: DAVID Lidocaine (Lidocaine 4 % Patch Adh..Patch) 1 patch TRANSDERMA DAILY PRN; Protocol PRN Reason: Back Pain Lidocaine (Lidocaine 4 % Patch Adh..Patch) 1 patch TRANSDERMA DAILY PRN; Protocol PRN Reason: SHOULDER PAIN Magnesium Hydroxide (Milk Of Magnesia 30 Ml Oral.Susp) 30 ml G-TUBE DAILY PRN PRN Reason: Constipation Metoclopramide HCl (Metoclopramide Hcl 10 Mg Tablet) 10 mg G-TUBE Q6H PRN PRN Reason: GERD Last Admin: 09/03/24 06:36 Dose: 10 mg Documented By: MATT Multivitamins/Minerals (Multivitamin With Minerals Liq 15 Ml Liquid) 15 ml G- TUBE DAILY [facility] Last Admin: 09/03/24 08:43 Dose: 15 ml Documented By: DAVID Omeprazole (Omeprazole/Na Bicarb Oral Susp 20 Mg/10 Ml Ud Cup) 20 mg PO BID@0630,1630 [facility] Last Admin: 09/03/24 06:13 Dose: 20 mg Documented By: MATT Ondansetron HCl (Ondansetron Hcl 4 Mg/2 Ml Vial) 4 mg IVPUSH Q8H PRN PRN Reason: Nausea and Vomiting Last Admin: 09/03/24 00:28 Dose: 4 mg Documented By: MATT Polyethylene Glycol (Polyethylene Glycol 3350 17 Gm Powd.Pack) 17 gm G-TUBE DAILY [facility] Last Admin: 09/03/24 08:43 Dose: 17 gm Documented By: DAVID Prednisone (Prednisone 5 Mg Tablet) 5 mg G-TUBE DAILY [facility] Last Admin: 09/03/24 08:46 Dose: 5 mg Documented By: DAVID Senna (Sennosides Oral Syrup 8.8 Mg/5 Ml) 8.8 mg G-TUBE BID PRN PRN Reason: Constipation Last Admin: 08/31/24 20:45 Dose: 8.8 mg Documented By: WANDER Sodium Chloride (0.9 % Sodium Chloride Flush 3 Ml Syringe) 3 ml IVFLUSH QSHIFT [facility] Last Admin: 09/03/24 08:42 Dose: 3 ml Documented By: DAVID Tacrolimus (Tacrolimus 0.5 Mg Capsule) 0.5 mg G-TUBE BID [facility] Last Admin: 09/03/24 08:43 Dose: 0.5 mg Documented By: DAVID Tenofovir Disoproxil Fumarate (Tenofovir Disoproxil Fumarate 300 Mg Tablet) 300 mg G-TUBE DAILY [facility] Last Admin: 09/03/24 08:42 Dose: 300 mg Documented By: DAVID Labs 09/02/24 09:00 09/02/24 09:00 Labs: Laboratory Results - last 24 hr 09/02/24 09/02/24 09/03/24 16:33 19:40 06:59 POC Glucose 147 H 180 H 163 H 09/03/24 11:10 POC Glucose 157 H Assessment and Plan (1) Insulin dependent type 2 diabetes mellitus: Status: Acute (2) Feeding tube blocked: Status: Acute (3) Acute upper gastrointestinal bleeding: Status: Acute Plan 63yo M sent in from [facility] with PMHx CVA/L hemiparesis, dysphagia with GJ tube, PVD, ESRD s/p kidney transplant, HCV cirrhosis s/p liver transplant, DM2, pAF on apixaban, hx polysubstance abuse presented to ED 08/20 with dizziness, N/V, chest pain; had tested positive for Covid-19 08/09 family appealed discharge back to [facility] and requested placement elsewhere admitted for cofee-ground emesis, CT bleeding scan negative for acute bleed, H+H stable 1.Acute UGIB -underwent EGD by Dr. Luis that showed due to erosive esophagitis with no active bleed,g- J tube in good position - H+H stable, continue PPI - in regard to G-tube blockage Tube feeds on hold -Gastrografin study showed patent G-tube, contrast visualized in stomach and duodenum very little and jejunum questioning partial obstruction versus injection within the gastrostomy segment the GJ G-tube Await surgical input/tolerating pureed diet 2. Paroxysmal atrial fibrillation -sinus rhythm ,continue carvedilol/apixaban 3.Kidney/liver transplant - continue tacrolimus + prednisone 3.DM2 -acceptable control on Lantus 10 units and insulin sliding scale 4. rash - atypical eczema vs scabies Treated presumptively for scabies with ivermectin 200 mcg/kg x1 dose 08/25/24; repeat on 09/01/24 5. hx ?HBV - continue tenofovir 6 prostatism - doxazosin, finasteride 7. hx CVA - continue statin; d/c ASA [apixaban should be sufficient] DVT prophylaxis with Eliquis 5 mg b.i.d. Full code dispo - STR placement Quality Stroke Does the patient have a stroke diagnosis?: No VTE Prior VTE?: No VTE Risk Level:: Medical - moderate - high VTE Device Contraindication: N/A - Device Ordered VTE Drug Contraindication: Treatment Not Indicated
[2024-09-03 15:37] LABS: Glucose, Whole Blood 220 mg/dL (60-115)
[2024-09-03 15:51] VITALS: BP 109/55; PULSE 83; RESP 19; TEMP 36.7; O2SAT 98
[2024-09-03] MEDS: Potassium Chloride Packet 20 MEQ PACKET 40 MEQ PO (16:09)
[2024-09-03 19:43] VITALS: BP 111/57; PULSE 87; RESP 14; TEMP 36.6; O2SAT 98
[2024-09-03 21:12] LABS: Glucose, Whole Blood 160 mg/dL (60-115)
[2024-09-04] VITALS (7 sets, daily range): BP systolic 109–134; BP diastolic 55–68; PULSE 74–85; RESP 16–18; TEMP 36.3–36.8; O2SAT 95–98
[2024-09-04] MEDS: Lidocaine 4 % Patch ADH..PATCH 1 PATCH TRANSDERMA (02:05)
[2024-09-04] MEDS: Omeprazole/Na Bicarb Oral Susp 20 MG/10 ML UD Cup PO ×2 (05:42→16:52)
[2024-09-04 07:23] LABS: Glucose, Whole Blood 150 mg/dL (60-115)
[2024-09-04 07:37] LABS: Hematocrit 30.1 % (42.0-52.0); Hemoglobin 9.4 g/dl (14.0-18.0); Mean Corpuscular HGB Conc 31.2 g/dl (31.0-36.0); Mean Corpuscular Hemoglobin 23.4 pg (27.0-33.0); Mean Corpuscular Volume 75.1 fL (80.0-98.0); Mean Platelet Volume 11.2 fL (9.4-12.4); Platelet Count 261 X10*3/uL (160-400); Red Blood Count 4.01 X10*6/uL (4.60-5.80); Red Cell Distribution Width 16.7 % (11.0-16.0); White Blood Count 7.2 X10*3/uL (4.8-10.8)
[2024-09-04 07:46] LABS: Anion Gap 13 (12-20); Blood Urea Nitrogen 14 mg/dL (9-16); Calcium 8.5 mg/dL (8.4-10.2); Carbon Dioxide 25 mmol/L (22-29); Chloride 106 mmol/L (96-108); Creatinine Clr Calc Pharmacy 83.3; Estimated Glomerular Filt Rate > 60; Glucose Random 142 mg/dL (60-115); Potassium 3.6 mmol/L (3.3-5.1); Sodium 140 mmol/L (135-145)
[2024-09-04] MEDS: Tenofovir Disoproxil Fumarate 300 MG TABLET G-TUBE (08:02)
[2024-09-04] MEDS: Gabapentin 100 MG CAPSULE G-TUBE ×2 (08:02→20:34)
[2024-09-04] MEDS: Finasteride 5 MG TABLET PO (08:02)
[2024-09-04] MEDS: 0.9 % Sodium Chloride Flush 3 ML SYRINGE IVFLUSH ×3 (08:02→20:34)
[2024-09-04] MEDS: Tacrolimus 0.5 MG CAPSULE G-TUBE ×2 (08:02→20:34)
[2024-09-04] MEDS: polyethylene glycoL 3350 17 GM POWD.PACK G-TUBE (08:02)
[2024-09-04] MEDS: Atorvastatin Calcium 80 MG TABLET G-TUBE (08:03)
[2024-09-04] MEDS: Doxazosin Mesylate 2 MG TABLET G-TUBE (08:03)
[2024-09-04] MEDS: carvediloL 6.25 MG TABLET G-TUBE ×2 (08:03→20:34)
[2024-09-04] MEDS: Multivitamin with Minerals Liq 15 ML LIQUID G-TUBE (08:03)
[2024-09-04] MEDS: Insulin Glargine,Hum.rec.anlog 100 UNIT/ML 10 ML VIAL 10 UNIT SUBCUT (08:03)
[2024-09-04] MEDS: predniSONE 5 MG TABLET G-TUBE (08:05)
[2024-09-04 11:11] LABS: Glucose, Whole Blood 175 mg/dL (60-115)
[2024-09-04] MEDS: Insulin Lispro 100 UNIT/ML 3 ML VIAL SUBCUT ×3 (12:50→20:50)
--- NOTE | 2024-09-04 14:12 | HO.PM.IMPN ---
Subjective Subjective Date of Service: 09/04/24 Interval History: Offers no complaints of heartburn Tolerating pureed diet and nectar thick liquids No acute events overnight Review of Systems All other system reviewed and are negative. Physical Exam Vital Signs: Vital Signs: Last Vital Signs Temp 97.7 F 09/04/24 11:15 Pulse 79 09/04/24 11:15 Resp 18 09/04/24 11:15 BP 110/58 L 09/04/24 11:15 Pulse Ox 96 09/04/24 11:15 O2 Del Method Room Air 09/04/24 11:15 O2 Flow Rate 97 08/30/24 03:59 BMI result Body Mass Index 21.9 Const: Other: Gen: in no acute distress HEENT: sclera anicteric, moist mucus membranes Neck: supple Lungs: clear to auscultation bilaterally Heart: regular rate and rhythm, no murmurs Abd: soft, non-tender, non-distended, GJ tube site intact Ext: no edema Neuro: alert and oriented x3, L hemiparesis Psych: appropriate affect Objective Data Active Medications Acetaminophen (Acetaminophen 325 Mg Tablet) 650 mg G-TUBE Q6H PRN PRN Reason: Pain, Mild (Pain Scale 1-3), fever or headache Last Admin: 09/02/24 08:06 Dose: 650 mg Documented By: JARRED Al Hydroxide/Mg Hydroxide (Magnesium Hydrox/Alum Hydrox 30 Ml Oral.Susp) 30 ml G-TUBE Q4H PRN PRN Reason: heart burn Last Admin: 09/03/24 11:52 Dose: 30 ml Documented By: DAVID Apixaban (Apixaban 5 Mg Tablet) 5 mg PO BID [facility] Last Admin: 08/27/24 10:49 Dose: 5 mg Documented By: DOBROB Atorvastatin Calcium (Atorvastatin Calcium 80 Mg Tablet) 80 mg G-TUBE DAILY [facility] Last Admin: 09/04/24 08:03 Dose: 80 mg Documented By: JESSICA Bisacodyl (Bisacodyl 10 Mg Supp.Rect) 10 mg DE DAILY PRN PRN Reason: Constipation Carvedilol (Carvedilol 6.25 Mg Tablet) 6.25 mg G-TUBE BID [facility]; Protocol Last Admin: 09/04/24 08:03 Dose: 6.25 mg Documented By: JESSICA Diphenhydramine HCl (Diphenhydramine Hcl 50 Mg/Ml Vial) 25 mg IVPUSH Q4H PRN PRN Reason: Itching Last Admin: 09/04/24 13:34 Dose: 25 mg Documented By: JESSICA Doxazosin Mesylate (Doxazosin Mesylate 2 Mg Tablet) 2 mg G-TUBE DAILY [facility]; Protocol Last Admin: 09/04/24 08:03 Dose: 2 mg Documented By: JESSICA Finasteride (Finasteride 5 Mg Tablet) 5 mg PO DAILY [facility] Last Admin: 09/04/24 08:02 Dose: 5 mg Documented By: JESSICA Gabapentin (Gabapentin 100 Mg Capsule) 100 mg G-TUBE BID [facility] Last Admin: 09/04/24 08:02 Dose: 100 mg Documented By: JESSICA Insulin Glargine (Insulin Glargine,Hum.Rec.Anlog 100 Unit/Ml 10 Ml Vial) 10 unit SUBCUT DAILY [facility] Last Admin: 09/04/24 08:03 Dose: 10 unit Documented By: JESSICA Insulin Human Lispro (Insulin Lispro 100 Unit/Ml 3 Ml Vial) 0 unit SUBCUT QIDACHS [facility]; Protocol Last Admin: 09/04/24 12:50 Dose: 2 unit Documented By: JESSICA Lidocaine (Lidocaine 4 % Patch Adh..Patch) 1 patch TRANSDERMA DAILY PRN; Protocol PRN Reason: Back Pain Lidocaine (Lidocaine 4 % Patch Adh..Patch) 1 patch TRANSDERMA DAILY PRN; Protocol PRN Reason: SHOULDER PAIN Last Admin: 09/04/24 02:05 Dose: 1 patch Documented By: ANUPAM Magnesium Hydroxide (Milk Of Magnesia 30 Ml Oral.Susp) 30 ml G-TUBE DAILY PRN PRN Reason: Constipation Metoclopramide HCl (Metoclopramide Hcl 10 Mg Tablet) 10 mg G-TUBE Q6H PRN PRN Reason: GERD Last Admin: 09/03/24 06:36 Dose: 10 mg Documented By: MATT Multivitamins/Minerals (Multivitamin With Minerals Liq 15 Ml Liquid) 15 ml G-TUBE DAILY [facility] Last Admin: 09/04/24 08:03 Dose: 15 ml Documented By: JESSICA Omeprazole (Omeprazole/Na Bicarb Oral Susp 20 Mg/10 Ml Ud Cup) 20 mg PO BID@0630,1630 [facility] Last Admin: 09/04/24 05:42 Dose: 20 mg Documented By: ANUPAM Ondansetron HCl (Ondansetron Hcl 4 Mg/2 Ml Vial) 4 mg IVPUSH Q8H PRN PRN Reason: Nausea and Vomiting Last Admin: 09/03/24 00:28 Dose: 4 mg Documented By: MATT Polyethylene Glycol (Polyethylene Glycol 3350 17 Gm Powd.Pack) 17 gm G-TUBE DAILY [facility] Last Admin: 09/04/24 08:02 Dose: 17 gm Documented By: JESSICA Prednisone (Prednisone 5 Mg Tablet) 5 mg G-TUBE DAILY [facility] Last Admin: 09/04/24 08:05 Dose: 5 mg Documented By: JESSICA Senna (Sennosides Oral Syrup 8.8 Mg/5 Ml) 8.8 mg G-TUBE BID PRN PRN Reason: Constipation Last Admin: 08/31/24 20:45 Dose: 8.8 mg Documented By: WANDER Sodium Chloride (0.9 % Sodium Chloride Flush 3 Ml Syringe) 3 ml IVFLUSH QSHIFT [facility] Last Admin: 09/04/24 08:02 Dose: 3 ml Documented By: JESSICA Tacrolimus (Tacrolimus 0.5 Mg Capsule) 0.5 mg G-TUBE BID [facility] Last Admin: 09/04/24 08:02 Dose: 0.5 mg Documented By: JESSICA Tenofovir Disoproxil Fumarate (Tenofovir Disoproxil Fumarate 300 Mg Tablet) 300 mg G-TUBE DAILY [facility] Last Admin: 09/04/24 08:02 Dose: 300 mg Documented By: JESSICA Labs 09/04/24 06:59 09/04/24 06:59 Labs: Laboratory Results - last 24 hr 09/03/24 09/03/24 09/04/24 15:34 21:05 06:59 MCV 75.1 L MCH 23.4 L MCHC 31.2 RDW 16.7 H Plt Count 261 MPV 11.2 Absolute Nucleated RBC 0.000 Nucleated RBC % (auto) 0.0 Anion Gap 13 Estim Creat Clear Calc 83.3 Estimated GFR > 60 POC Glucose 220 H 160 H Random Glucose 142 H Calcium 8.5 D 09/04/24 09/04/24 07:14 11:06 MCV MCH MCHC RDW Plt Count MPV Absolute Nucleated RBC Nucleated RBC % (auto) Anion Gap Estim Creat Clear Calc Estimated GFR POC Glucose 150 H 175 H Random Glucose Calcium Assessment and Plan (1) Insulin dependent type 2 diabetes mellitus: Status: Acute (2) Feeding tube blocked: Status: Acute (3) Nausea: Status: Acute (4) Acute upper gastrointestinal bleeding: Status: Acute (5) Coffee ground emesis: Status: Acute Plan 63yo M sent in from [facility] with PMHx CVA/L hemiparesis, dysphagia with GJ tube, PVD, ESRD s/p kidney transplant, HCV cirrhosis s/p liver transplant, DM2, pAF on apixaban, hx polysubstance abuse presented to ED 08/20 with dizziness, N/V, chest pain; had tested positive for Covid-19 08/09 family appealed discharge back to [facility] and requested placement elsewhere admitted for cofee-ground emesis, CT bleeding scan negative for acute bleed, H+H stable 1.Acute UGIB -underwent EGD by Dr. Luis that showed due to erosive esophagitis with no active bleed,g- J tube in good position - H+H stable, continue PPI - in regard to G-tube blockage spoke with General surgery they recommend to resume tube feed via G-tube -Gastrografin study showed patent G-tube, contrast visualized in stomach and duodenum very little in jejunum questioning partial obstruction versus injection within the gastrostomy segment the GJ -tube tolerating pureed diet 2. Paroxysmal atrial fibrillation -sinus rhythm ,continue carvedilol/apixaban 3.Kidney/liver transplant - continue tacrolimus + prednisone 3.DM2 -acceptable control on Lantus 10 units and insulin sliding scale 4. rash - atypical eczema vs scabies Treated presumptively for scabies with ivermectin 200 mcg/kg x1 dose 08/25/24; repeat on 09/01/24 5. hx ?HBV - continue tenofovir 6 prostatism - doxazosin, finasteride 7. hx CVA - continue statin; d/c ASA [apixaban should be sufficient] DVT prophylaxis with Eliquis 5 mg b.i.d. Full code dispo - STR placement Quality Stroke Does the patient have a stroke diagnosis?: No VTE Prior VTE?: No VTE Risk Level:: Medical - moderate - high VTE Device Contraindication: N/A - Device Ordered VTE Drug Contraindication: Treatment Not Indicated
[2024-09-04] MEDS: diphenhydrAMINE HCL 50 MG/ML VIAL 25 MG IVPUSH ×2 (15:39→20:33)
--- NOTE | 2024-09-04 15:48 | MHC.SPEECHCO ---
Pt refusing PO offering stating, I just ate . [employer]ER will re-attempt tomorrow and discharge with baseline recommendations.
[2024-09-04 16:06] LABS: Glucose, Whole Blood 232 mg/dL (60-115)
[2024-09-04] MEDS: Acetaminophen 325 MG TABLET 650 MG G-TUBE (20:33)
[2024-09-04] MEDS: ondansetron HCL 4 MG/2 ML VIAL IVPUSH (20:33)
[2024-09-04 20:53] LABS: Glucose, Whole Blood 187 mg/dL (60-115)
[2024-09-04] MEDS: traMADoL HCL 50 MG TABLET 25 MG PO (22:05)
[2024-09-05] VITALS (8 sets, daily range): BP systolic 115–148; BP diastolic 55–81; PULSE 81–109; RESP 16–18; TEMP 36.1–36.6; O2SAT 95–99
[2024-09-05] MEDS: diphenhydrAMINE HCL 50 MG/ML VIAL 25 MG IVPUSH ×3 (03:49→22:52)
[2024-09-05] MEDS: Omeprazole/Na Bicarb Oral Susp 20 MG/10 ML UD Cup PO ×2 (05:18→17:23)
[2024-09-05 07:20] LABS: Glucose, Whole Blood 212 mg/dL (60-115)
[2024-09-05] MEDS: Gabapentin 100 MG CAPSULE G-TUBE ×2 (08:05→22:28)
[2024-09-05] MEDS: Finasteride 5 MG TABLET PO (08:05)
[2024-09-05] MEDS: Atorvastatin Calcium 80 MG TABLET G-TUBE (08:05)
[2024-09-05] MEDS: predniSONE 5 MG TABLET G-TUBE (08:05)
[2024-09-05] MEDS: carvediloL 6.25 MG TABLET G-TUBE ×2 (08:05→22:30)
[2024-09-05] MEDS: Tenofovir Disoproxil Fumarate 300 MG TABLET G-TUBE (08:05)
[2024-09-05] MEDS: polyethylene glycoL 3350 17 GM POWD.PACK G-TUBE (08:05)
[2024-09-05] MEDS: Tacrolimus 0.5 MG CAPSULE G-TUBE ×2 (08:05→22:28)
[2024-09-05] MEDS: Multivitamin with Minerals Liq 15 ML LIQUID G-TUBE (08:05)
[2024-09-05] MEDS: Insulin Glargine,Hum.rec.anlog 100 UNIT/ML 10 ML VIAL 10 UNIT SUBCUT (08:06)
[2024-09-05] MEDS: 0.9 % Sodium Chloride Flush 3 ML SYRINGE IVFLUSH ×2 (08:06→17:23)
[2024-09-05] MEDS: Insulin Lispro 100 UNIT/ML 3 ML VIAL SUBCUT ×4 (08:06→22:27)
[2024-09-05] MEDS: Doxazosin Mesylate 2 MG TABLET G-TUBE (08:06)
[2024-09-05] MEDS: Magnesium Hydrox/Alum Hydrox 30 ML ORAL.SUSP G-TUBE (08:09)
[2024-09-05 11:14] LABS: Glucose, Whole Blood 198 mg/dL (60-115)
[2024-09-05] MEDS: ondansetron HCL 4 MG/2 ML VIAL IVPUSH (12:38)
--- NOTE | 2024-09-05 13:00 | HO.PM.IMPN ---
Subjective Subjective Date of Service: 09/05/24 Interval History: Offers no complaints of heartburn Tolerating pureed diet and nectar thick liquids No acute events overnight Review of Systems All other system reviewed and are negative. Physical Exam Vital Signs: Vital Signs: Last Vital Signs Temp 97.4 F 09/05/24 11:41 Pulse 81 09/05/24 11:41 Resp 16 09/05/24 11:41 BP 115/62 09/05/24 11:41 Pulse Ox 96 09/05/24 11:41 O2 Del Method Room Air 09/05/24 11:41 O2 Flow Rate 97 08/30/24 03:59 BMI result Body Mass Index 21.9 Const: Other: Gen: in no acute distress HEENT: sclera anicteric, moist mucus membranes Neck: supple Lungs: clear to auscultation bilaterally Heart: regular rate and rhythm, no murmurs Abd: soft, non-tender, non-distended, GJ tube site intact Ext: no edema Neuro: alert and oriented x3, L hemiparesis Psych: appropriate affect Objective Data Active Medications Acetaminophen (Acetaminophen 325 Mg Tablet) 650 mg G-TUBE Q6H PRN PRN Reason: Pain, Mild (Pain Scale 1-3), fever or headache Last Admin: 09/04/24 20:33 Dose: 650 mg Documented By: LEE Al Hydroxide/Mg Hydroxide (Magnesium Hydrox/Alum Hydrox 30 Ml Oral.Susp) 30 ml G-TUBE Q4H PRN PRN Reason: heart burn Last Admin: 09/05/24 08:09 Dose: 30 ml Documented By: DAVID Apixaban (Apixaban 5 Mg Tablet) 5 mg PO BID [facility] Last Admin: 08/27/24 10:49 Dose: 5 mg Documented By: DOBROMamadou Atorvastatin Calcium (Atorvastatin Calcium 80 Mg Tablet) 80 mg G-TUBE DAILY [facility] Last Admin: 09/05/24 08:05 Dose: 80 mg Documented By: DAVID Bisacodyl (Bisacodyl 10 Mg Supp.Rect) 10 mg [place] DAILY PRN PRN Reason: Constipation Carvedilol (Carvedilol 6.25 Mg Tablet) 6.25 mg G-TUBE BID [facility]; Protocol Last Admin: 09/05/24 08:05 Dose: 6.25 mg Documented By: DAVID Diphenhydramine HCl (Diphenhydramine Hcl 50 Mg/Ml Vial) 25 mg IVPUSH Q4H PRN PRN Reason: Itching Last Admin: 09/05/24 08:09 Dose: 25 mg Documented By: DAVID Doxazosin Mesylate (Doxazosin Mesylate 2 Mg Tablet) 2 mg G-TUBE DAILY [facility]; Protocol Last Admin: 09/05/24 08:06 Dose: 2 mg Documented By: DAVID Finasteride (Finasteride 5 Mg Tablet) 5 mg PO DAILY [facility] Last Admin: 09/05/24 08:05 Dose: 5 mg Documented By: DAVID Gabapentin (Gabapentin 100 Mg Capsule) 100 mg G-TUBE BID [facility] Last Admin: 09/05/24 08:05 Dose: 100 mg Documented By: DAVID Insulin Glargine (Insulin Glargine,Hum.Rec.Anlog 100 Unit/Ml 10 Ml Vial) 10 unit SUBCUT DAILY [facility] Last Admin: 09/05/24 08:06 Dose: 10 unit Documented By: DAVID Insulin Human Lispro (Insulin Lispro 100 Unit/Ml 3 Ml Vial) 0 unit SUBCUT QIDACHS [facility]; Protocol Last Admin: 09/05/24 12:39 Dose: 2 unit Documented By: DAVID Lidocaine (Lidocaine 4 % Patch Adh..Patch) 1 patch TRANSDERMA DAILY PRN; Protocol PRN Reason: Back Pain Lidocaine (Lidocaine 4 % Patch Adh..Patch) 1 patch TRANSDERMA DAILY PRN; Protocol PRN Reason: SHOULDER PAIN Last Admin: 09/04/24 02:05 Dose: 1 patch Documented By: ANUPAM Magnesium Hydroxide (Milk Of Magnesia 30 Ml Oral.Susp) 30 ml G-TUBE DAILY PRN PRN Reason: Constipation Metoclopramide HCl (Metoclopramide Hcl 10 Mg Tablet) 10 mg G-TUBE Q6H PRN PRN Reason: GERD Last Admin: 09/03/24 06:36 Dose: 10 mg Documented By: MATT Multivitamins/Minerals (Multivitamin With Minerals Liq 15 Ml Liquid) 15 ml G-TUBE DAILY [facility] Last Admin: 09/05/24 08:05 Dose: 15 ml Documented By: DAVID Omeprazole (Omeprazole/Na Bicarb Oral Susp 20 Mg/10 Ml Ud Cup) 20 mg PO BID@0630,1630 [facility] Last Admin: 09/05/24 05:18 Dose: 20 mg Documented By: LEE Ondansetron HCl (Ondansetron Hcl 4 Mg/2 Ml Vial) 4 mg IVPUSH Q8H PRN PRN Reason: Nausea and Vomiting Last Admin: 09/05/24 12:38 Dose: 4 mg Documented By: DAVID Polyethylene Glycol (Polyethylene Glycol 3350 17 Gm Powd.Pack) 17 gm G-TUBE DAILY [facility] Last Admin: 09/05/24 08:05 Dose: 17 gm Documented By: DAVID Prednisone (Prednisone 5 Mg Tablet) 5 mg G-TUBE DAILY [facility] Last Admin: 09/05/24 08:05 Dose: 5 mg Documented By: DAVID Senna (Sennosides Oral Syrup 8.8 Mg/5 Ml) 8.8 mg G-TUBE BID PRN PRN Reason: Constipation Last Admin: 08/31/24 20:45 Dose: 8.8 mg Documented By: WANDER Sodium Chloride (0.9 % Sodium Chloride Flush 3 Ml Syringe) 3 ml IVFLUSH QSHIFT [facility] Last Admin: 09/05/24 08:06 Dose: 3 ml Documented By: DAVID Tacrolimus (Tacrolimus 0.5 Mg Capsule) 0.5 mg G-TUBE BID [facility] Last Admin: 09/05/24 08:05 Dose: 0.5 mg Documented By: DAVID Tenofovir Disoproxil Fumarate (Tenofovir Disoproxil Fumarate 300 Mg Tablet) 300 mg G-TUBE DAILY [facility] Last Admin: 09/05/24 08:05 Dose: 300 mg Documented By: DAVID Tramadol HCl (Tramadol Hcl 50 Mg Tablet) 25 mg PO Q6H PRN PRN Reason: Pain, Severe (Pain Scale 7-10) Last Admin: 09/04/24 22:05 Dose: 25 mg Documented By: LEE Labs 09/04/24 06:59 09/04/24 06:59 Labs: Laboratory Results - last 24 hr 09/04/24 09/04/24 09/05/24 15:48 20:50 07:12 POC Glucose 232 H 187 H 212 H 09/05/24 11:11 POC Glucose 198 H Assessment and Plan (1) Insulin dependent type 2 diabetes mellitus: Status: Acute (2) Feeding tube blocked: Status: Acute (3) Nausea: Status: Acute Plan 63yo M sent in from [facility] with PMHx CVA/L hemiparesis, dysphagia with GJ tube, PVD, ESRD s/p kidney transplant, HCV cirrhosis s/p liver transplant, DM2, pAF on apixaban, hx polysubstance abuse presented to ED 08/20 with dizziness, N/V, chest pain; had tested positive for Covid-19 08/09 family appealed discharge back to [facility] and requested placement elsewhere admitted for cofee-ground emesis, CT bleeding scan negative for acute bleed, H+H stable 1.Acute UGIB -underwent EGD by Dr. Luis that showed due to erosive esophagitis with no active bleed,g- J tube in good position - H+H stable, continue PPI - in regard to G-tube blockage started on tube feed via G-tube but patient noted to have few episodes of vomiting, seen by cinder worker and since was taking 50% by mouth intake, tube feed cut back to have his calorie needs Will monitor on current tube feedings. -Gastrografin study showed patent G-tube, contrast visualized in stomach and duodenum very little in jejunum questioning partial obstruction versus injection within the gastrostomy segment the GJ -tube tolerating pureed diet 2. Paroxysmal atrial fibrillation -sinus rhythm ,continue carvedilol/apixaban 3.Kidney/liver transplant - continue tacrolimus + prednisone 3.DM2 -acceptable control on Lantus 10 units and insulin sliding scale 4. rash - atypical eczema vs scabies Treated presumptively for scabies with ivermectin 200 mcg/kg x1 dose 08/25/24; repeat on 09/01/24 5. hx ?HBV - continue tenofovir 6 prostatism - doxazosin, finasteride 7. hx CVA - continue statin; d/c ASA [apixaban should be sufficient] DVT prophylaxis with Eliquis 5 mg b.i.d. Full code dispo - STR placement Quality Stroke Does the patient have a stroke diagnosis?: No VTE Prior VTE?: No VTE Risk Level:: Medical - moderate - high VTE Device Contraindication: N/A - Device Ordered VTE Drug Contraindication: Treatment Not Indicated
--- NOTE | 2024-09-05 13:58 | MHC.CLN ---
F/U PO INTAKE VARIABLE FOLLOWS: 50%, 75%, 100% PER NSG, 25% X3 09/04/24 PO AVERAGES 50% MD REPORTED PT VOMITED AND REQUESTED CONSULT FOR TF TOLERANCE NOTED NSG REPORTED J TUBE CLOGGED ON 09/03 TF WAS ON HOLD DIET RX: PUREED WITH NT LIQ PER SENIOR SALES COMPENSATION ANALYST SENIOR SALES COMPENSATION ANALYST CONTINUES TO FOLLOW FOR APPROPRIATE DIET CONSISTENCY PT WAS RECEIVING NEPRO TF AT MAX GOAL RATE OF 45 ML/HOUR CONTINUOUS WITH 240 ML FREE WATER FLUSHES Q 6 HOURS PROVIDES 1944 KCALS (27.3 KCALS/KG), 87 G PROTEIN (1.22 G/KG), 1745 TOTAL ML FREE WATER FROM FORMULA AND FLUSHES (24.5 ML/KG) PLAN: REDUCE TF TO 50% OF ESTIMATED KCAL NEEDS R/T IMPROVED PO INTAKE RECOMMEND REDUCE NEPRO TF TO RATE OF 25 ML/HOUR CONTINUOUS WITH 240 ML FREE WATER FLUSHES Q 6 HOURS TO PROVIDE 1080 KCALS (51% EST. KCALS NEEDS), 49G PROTEIN (58% EST PROTEIN NEEDS), 1396 TOTAL ML FREE WATER FROM FORMULA AND FLUSHES (20 ML/KG) WILL ADD MAGIC CUP TID TO PUREED MEALS TO INCREASE KCALS; SUPP PROVIDES 870KCALS, 27G PROTEIN WITH 100% ACCEPTANCE MONITOR PO INTAKE STRICT IN ADDITION TO TF TOLERANCE AND LYTES RD CAN BE REACHED VIS TIGER CONNECT DURING OFF HOURS IF NEEDED
[2024-09-05 16:54] LABS: Glucose, Whole Blood 233 mg/dL (60-115)
[2024-09-05] MEDS: Metoclopramide HCl 10 MG TABLET G-TUBE (17:38)
[2024-09-05 21:01] LABS: Glucose, Whole Blood 198 mg/dL (60-115)
[2024-09-05] MEDS: traMADoL HCL 50 MG TABLET 25 MG PO (22:51)
[2024-09-06] MEDS: 0.9 % Sodium Chloride Flush 3 ML SYRINGE IVFLUSH ×4 (00:30→21:30)
[2024-09-06 03:09] VITALS: BP 137/64; PULSE 91; RESP 16; TEMP 36.4; O2SAT 95
[2024-09-06] MEDS: diphenhydrAMINE HCL 50 MG/ML VIAL 25 MG IVPUSH (04:04)
[2024-09-06] MEDS: Omeprazole/Na Bicarb Oral Susp 20 MG/10 ML UD Cup PO ×2 (06:18→16:16)
[2024-09-06 07:27] LABS: Glucose, Whole Blood 142 mg/dL (60-115)
[2024-09-06 07:28] VITALS: BP 113/59; PULSE 84; RESP 16; TEMP 36.2; O2SAT 96
[2024-09-06] MEDS: Gabapentin 100 MG CAPSULE G-TUBE ×2 (09:53→21:23)
[2024-09-06] MEDS: Tenofovir Disoproxil Fumarate 300 MG TABLET G-TUBE (09:53)
[2024-09-06] MEDS: Insulin Glargine,Hum.rec.anlog 100 UNIT/ML 10 ML VIAL 10 UNIT SUBCUT (09:53)
[2024-09-06] MEDS: Doxazosin Mesylate 2 MG TABLET G-TUBE (09:53)
[2024-09-06] MEDS: polyethylene glycoL 3350 17 GM POWD.PACK G-TUBE (09:53)
[2024-09-06] MEDS: predniSONE 5 MG TABLET G-TUBE (09:53)
[2024-09-06] MEDS: Tacrolimus 0.5 MG CAPSULE G-TUBE ×2 (09:53→21:24)
[2024-09-06] MEDS: carvediloL 6.25 MG TABLET G-TUBE ×2 (09:53→21:24)
[2024-09-06] MEDS: Finasteride 5 MG TABLET PO (09:54)
[2024-09-06] MEDS: Atorvastatin Calcium 80 MG TABLET G-TUBE (09:54)
[2024-09-06 11:10] LABS: Glucose, Whole Blood 179 mg/dL (60-115)
[2024-09-06 11:27] VITALS: BP 118/58; PULSE 79; RESP 16; TEMP 36.3; O2SAT 97
[2024-09-06] MEDS: Insulin Lispro 100 UNIT/ML 3 ML VIAL SUBCUT ×3 (11:36→21:24)
[2024-09-06 12:30] LABS: Hematocrit 30.6 % (42.0-52.0); Hemoglobin 9.3 g/dl (14.0-18.0); Mean Corpuscular HGB Conc 30.4 g/dl (31.0-36.0); Mean Corpuscular Hemoglobin 23.1 pg (27.0-33.0); Mean Corpuscular Volume 75.9 fL (80.0-98.0); PLT CLUMP 1; Red Blood Count 4.03 X10*6/uL (4.60-5.80); Red Cell Distribution Width 16.4 % (11.0-16.0)
[2024-09-06 12:35] LABS: OBS Int Ctl Valid YES; OBS1 NEGATIVE (NEGATIVE)
[2024-09-06 13:23] LABS: White Blood Count 8.1 X10*3/uL (4.8-10.8)
--- NOTE | 2024-09-06 14:35 | HO.PM.IMPN ---
Subjective Subjective Date of Service: 09/06/24 Interval History: Complaining of itching both lower extremities and/left upper extremity itching, denies heartburn or acidity tolerating pureed diet and clear liquids, G-tube feedings held due to high residual. Denies urinary symptoms has no urge to urinate, bladder scan >417 declining straight cath Review of Systems All other system reviewed and are negative Physical Exam Vital Signs: Vital Signs: Last Vital Signs Temp 97.3 F 09/06/24 11:27 Pulse 79 09/06/24 11:27 Resp 16 09/06/24 11:27 BP 118/58 L 09/06/24 11:27 Pulse Ox 97 09/06/24 11:27 O2 Del Method Room Air 09/06/24 11:27 O2 Flow Rate 97 08/30/24 03:59 BMI result Body Mass Index 21.9 Const: Other: Gen: in no acute distress HEENT: sclera anicteric, moist mucus membranes Neck: supple Lungs: clear to auscultation bilaterally Heart: regular rate and rhythm, no murmurs Abd: soft, non-tender, non-distended, GJ tube site intact, soft brown stool Ext: no edema Neuro: alert and oriented x3, L hemiparesis Psych: appropriate affect Skin dry scaly lower extremities. Objective Data Active Medications Acetaminophen (Acetaminophen 325 Mg Tablet) 650 mg G-TUBE Q6H PRN PRN Reason: Pain, Mild (Pain Scale 1-3), fever or headache Last Admin: 09/04/24 20:33 Dose: 650 mg Documented By: LEE Al Hydroxide/Mg Hydroxide (Magnesium Hydrox/Alum Hydrox 30 Ml Oral.Susp) 30 ml G-TUBE Q4H PRN PRN Reason: heart burn Last Admin: 09/05/24 08:09 Dose: 30 ml Documented By: RICCIAV Apixaban (Apixaban 5 Mg Tablet) 5 mg PO BID [facility] Last Admin: 08/27/24 10:49 Dose: 5 mg Documented By: DOBROB Atorvastatin Calcium (Atorvastatin Calcium 80 Mg Tablet) 80 mg G-TUBE DAILY [facility] Last Admin: 09/06/24 09:54 Dose: 80 mg Documented By: KIREAN Bisacodyl (Bisacodyl 10 Mg Supp.Rect) 10 mg SC DAILY PRN PRN Reason: Constipation Calamine (Calamine/Zinc Oxide Lotion 177 Ml Bottle) 1 appl TOPICAL BID PRN; Protocol PRN Reason: lower legs Carvedilol (Carvedilol 6.25 Mg Tablet) 6.25 mg G-TUBE BID [facility]; Protocol Last Admin: 09/06/24 09:53 Dose: 6.25 mg Documented By: KIERAN Diphenhydramine HCl (Diphenhydramine Hcl 50 Mg/Ml Vial) 25 mg IVPUSH Q4H PRN PRN Reason: Itching Last Admin: 09/06/24 04:04 Dose: 25 mg Documented By: KLAUDIA Doxazosin Mesylate (Doxazosin Mesylate 2 Mg Tablet) 2 mg G-TUBE DAILY [facility]; Protocol Last Admin: 09/06/24 09:53 Dose: 2 mg Documented By: KIERAN Finasteride (Finasteride 5 Mg Tablet) 5 mg PO DAILY [facility] Last Admin: 09/06/24 09:54 Dose: 5 mg Documented By: KIERAN Gabapentin (Gabapentin 100 Mg Capsule) 100 mg G-TUBE BID [facility] Last Admin: 09/06/24 09:53 Dose: 100 mg Documented By: KIERAN Insulin Glargine (Insulin Glargine,Hum.Rec.Anlog 100 Unit/Ml 10 Ml Vial) 10 unit SUBCUT DAILY [facility] Last Admin: 09/06/24 09:53 Dose: 10 unit Documented By: KIERAN Insulin Human Lispro (Insulin Lispro 100 Unit/Ml 3 Ml Vial) 0 unit SUBCUT QIDACHS [facility]; Protocol Last Admin: 09/06/24 11:36 Dose: 2 unit Documented By: KIERAN Lidocaine (Lidocaine 4 % Patch Adh..Patch) 1 patch TRANSDERMA DAILY PRN; Protocol PRN Reason: Back Pain Lidocaine (Lidocaine 4 % Patch Adh..Patch) 1 patch TRANSDERMA DAILY PRN; Protocol PRN Reason: SHOULDER PAIN Last Admin: 09/04/24 02:05 Dose: 1 patch Documented By: ANUPAM Magnesium Hydroxide (Milk Of Magnesia 30 Ml Oral.Susp) 30 ml G-TUBE DAILY PRN PRN Reason: Constipation Metoclopramide HCl (Metoclopramide Hcl 10 Mg Tablet) 10 mg G-TUBE Q6H PRN PRN Reason: GERD Last Admin: 09/05/24 17:38 Dose: 10 mg Documented By: DAVID Multivitamins/Minerals (Multivitamin With Minerals Liq 15 Ml Liquid) 15 ml G-TUBE DAILY [facility] Last Admin: 09/06/24 11:12 Dose: Not Given Documented By: KIERAN Non-Admin Reason: med not available; pharmacy called Omeprazole (Omeprazole/Na Bicarb Oral Susp 20 Mg/10 Ml Ud Cup) 20 mg PO BID@0630,1630 [facility] Last Admin: 09/06/24 06:18 Dose: 20 mg Documented By: KLAUDIA Ondansetron HCl (Ondansetron Hcl 4 Mg/2 Ml Vial) 4 mg IVPUSH Q8H PRN PRN Reason: Nausea and Vomiting Last Admin: 09/05/24 12:38 Dose: 4 mg Documented By: DAVID Polyethylene Glycol (Polyethylene Glycol 3350 17 Gm Powd.Pack) 17 gm G-TUBE DAILY [facility] Last Admin: 09/06/24 09:53 Dose: 17 gm Documented By: KIERAN Prednisone (Prednisone 5 Mg Tablet) 5 mg G-TUBE DAILY [facility] Last Admin: 09/06/24 09:53 Dose: 5 mg Documented By: KIERAN Senna (Sennosides Oral Syrup 8.8 Mg/5 Ml) 8.8 mg G-TUBE BID PRN PRN Reason: Constipation Last Admin: 08/31/24 20:45 Dose: 8.8 mg Documented By: WANDER Sodium Chloride (0.9 % Sodium Chloride Flush 3 Ml Syringe) 3 ml IVFLUSH QSHIFT [facility] Last Admin: 09/06/24 08:54 Dose: 3 ml Documented By: KIERAN Tacrolimus (Tacrolimus 0.5 Mg Capsule) 0.5 mg G-TUBE BID [facility] Last Admin: 09/06/24 09:53 Dose: 0.5 mg Documented By: KIERAN Tenofovir Disoproxil Fumarate (Tenofovir Disoproxil Fumarate 300 Mg Tablet) 300 mg G-TUBE DAILY [facility] Last Admin: 09/06/24 09:53 Dose: 300 mg Documented By: KIERAN Tramadol HCl (Tramadol Hcl 50 Mg Tablet) 25 mg PO Q6H PRN PRN Reason: Pain, Severe (Pain Scale 7-10) Last Admin: 09/05/24 22:51 Dose: 25 mg Documented By: KLAUDIA Triamcinolone Acetonide (Triamcinolone Acet 0.1 % Cream 15 Gm Tube) 1 appl TOPICAL DAILY [facility]; Protocol Labs 09/06/24 11:51 09/04/24 06:59 Labs: Laboratory Results - last 24 hr 09/05/24 09/05/24 09/06/24 16:47 20:54 07:24 MCV MCH MCHC RDW Plt Count MPV Absolute Nucleated RBC Nucleated RBC % (auto) POC Glucose 233 H 198 H 142 H Stool Occult Blood 09/06/24 09/06/24 09/06/24 11:04 11:51 12:10 MCV 75.9 L MCH 23.1 L MCHC 30.4 L RDW 16.4 H Plt Count TNP MPV Not Reportable Absolute Nucleated RBC 0.000 Nucleated RBC % (auto) 0.0 POC Glucose 179 H Stool Occult Blood NEGATIVE Assessment and Plan (1) Insulin dependent type 2 diabetes mellitus: Status: Acute (2) Feeding tube blocked: Status: Acute (3) Nausea: Status: Acute (4) Acute upper gastrointestinal bleeding: Status: Acute Plan 63yo M sent in from [facility] with PMHx CVA/L hemiparesis, dysphagia with GJ tube, PVD, ESRD s/p kidney transplant, HCV cirrhosis s/p liver transplant, DM2, pAF on apixaban, hx polysubstance abuse presented to ED 08/20 with dizziness, N/V, chest pain; had tested positive for Covid-19 08/09 family appealed discharge back to [facility] and requested placement elsewhere admitted for cofee-ground emesis, CT bleeding scan negative for acute bleed, H+H stable 1.Acute UGIB -no recurrent bleed -underwent EGD by Dr. Luis that showed erosive esophagitis with no active bleed,g- J tube in good position - H+H stable, continue PPI - in regard to G-tube blockage started on tube feed via G-tube but initially had episodes of vomiting therefore feedings cut back to 25 mL/hours , this morning noted to have high residuals Will hold feedings in resume and follow residuals closely will discuss with old testament professor regarding further adjustment of tube feeding rate 2. Paroxysmal atrial fibrillation -sinus rhythm ,continue carvedilol/apixaban 3.Kidney/liver transplant - continue tacrolimus + prednisone 3.DM2 -acceptable control on Lantus 10 units and insulin sliding scale 4. rash - atypical eczema vs scabies Treated presumptively for scabies with ivermectin 200 mcg/kg x1 dose 08/25/24; repeat on 09/01/24, persistent itching will apply calamine lotion to lower extremities, Kenalog to left upper extremity DC IV Benadryl and place on by mouth Benadryl. 5. hx ?HBV - continue tenofovir 6 prostatism - doxazosin, finasteride 7. hx CVA - continue statin; d/c ASA [apixaban should be sufficient] DVT prophylaxis with Eliquis 5 mg b.i.d. Full code dispo - STR placement Quality Stroke Does the patient have a stroke diagnosis?: No VTE Prior VTE?: No VTE Risk Level:: Medical - moderate - high VTE Device Contraindication: N/A - Device Ordered VTE Drug Contraindication: Treatment Not Indicated
[2024-09-06 15:06] VITALS: BP 136/68; PULSE 80; RESP 18; TEMP 36.6; O2SAT 96
--- NOTE | 2024-09-06 15:16 | PC.NURSE ---
no output from external urinary catheter throughout this shift, patient was bladder scanned at 1400 showing >417mls in bladder. Dr. Stewart made aware and spoke with patient at bedside, pt declining to be straight cathed at this time, okay'd to continue to monitor for now
[2024-09-06] MEDS: Triamcinolone Acet 0.1 % Cream 15 GM TUBE 1 APPL TOPICAL (16:16)
[2024-09-06 16:17] LABS: Glucose, Whole Blood 201 mg/dL (60-115)
[2024-09-06] MEDS: diphenhydrAMINE HCL 25 MG CAPSULE PO ×2 (17:13→21:33)
[2024-09-06 19:32] VITALS: BP 144/70; PULSE 84; RESP 16; TEMP 36.1; O2SAT 96
[2024-09-06 20:39] LABS: Glucose, Whole Blood 176 mg/dL (60-115)
[2024-09-06 23:47] VITALS: BP 125/72; PULSE 89; RESP 17; TEMP 36.3; O2SAT 98
[2024-09-07] MEDS: diphenhydrAMINE HCL 25 MG CAPSULE PO ×4 (03:02→20:15)
[2024-09-07 03:03] VITALS: BP 129/69; PULSE 88; RESP 16; TEMP 36.1; O2SAT 99
[2024-09-07] MEDS: Omeprazole/Na Bicarb Oral Susp 20 MG/10 ML UD Cup PO ×2 (06:16→16:27)
[2024-09-07] MEDS: 0.9 % Sodium Chloride Flush 3 ML SYRINGE IVFLUSH ×3 (06:58→22:54)
[2024-09-07 07:14] LABS: Hemoglobin 10.6 g/dl (14.0-18.0); Mean Corpuscular HGB Conc 29.4 g/dl (31.0-36.0); Mean Corpuscular Hemoglobin 22.6 pg (27.0-33.0); Mean Corpuscular Volume 76.9 fL (80.0-98.0); Mean Platelet Volume 10.8 fL (9.4-12.4); Platelet Count 321 X10*3/uL (160-400); Red Blood Count 4.68 X10*6/uL (4.60-5.80); Red Cell Distribution Width 16.5 % (11.0-16.0); White Blood Count 6.8 X10*3/uL (4.8-10.8)
[2024-09-07 07:22] VITALS: BP 126/61; PULSE 87; RESP 16; TEMP 36.1; O2SAT 98
[2024-09-07 07:29] LABS: Anion Gap 13 (12-20); Blood Urea Nitrogen 17 mg/dL (9-16); Calcium 9.1 mg/dL (8.4-10.2); Carbon Dioxide 25 mmol/L (22-29); Chloride 104 mmol/L (96-108); Creatinine Clr Calc Pharmacy 96.2; Estimated Glomerular Filt Rate > 60; Glucose Random 159 mg/dL (60-115); Potassium 3.6 mmol/L (3.3-5.1); Sodium 138 mmol/L (135-145)
[2024-09-07] MEDS: ondansetron HCL 4 MG/2 ML VIAL IVPUSH ×2 (07:31→22:54)
[2024-09-07 07:42] LABS: Glucose, Whole Blood 162 mg/dL (60-115)
[2024-09-07] MEDS: Doxazosin Mesylate 2 MG TABLET G-TUBE (07:59)
[2024-09-07] MEDS: Multivitamin with Minerals Liq 15 ML LIQUID G-TUBE (07:59)
[2024-09-07] MEDS: Tenofovir Disoproxil Fumarate 300 MG TABLET G-TUBE (07:59)
[2024-09-07] MEDS: Finasteride 5 MG TABLET PO (08:00)
[2024-09-07] MEDS: carvediloL 6.25 MG TABLET G-TUBE ×2 (08:00→20:15)
[2024-09-07] MEDS: Tacrolimus 0.5 MG CAPSULE G-TUBE ×2 (08:00→21:05)
[2024-09-07] MEDS: Atorvastatin Calcium 80 MG TABLET G-TUBE (08:00)
[2024-09-07] MEDS: predniSONE 5 MG TABLET G-TUBE (08:00)
[2024-09-07] MEDS: Gabapentin 100 MG CAPSULE G-TUBE ×2 (08:00→20:15)
[2024-09-07] MEDS: Triamcinolone Acet 0.1 % Cream 15 GM TUBE 1 APPL TOPICAL (08:01)
[2024-09-07 11:23] LABS: Glucose, Whole Blood 188 mg/dL (60-115)
[2024-09-07 11:38] VITALS: BP 123/59; PULSE 81; RESP 18; TEMP 36.4; O2SAT 97
[2024-09-07] MEDS: Insulin Lispro 100 UNIT/ML 3 ML VIAL SUBCUT ×3 (11:48→20:15)
--- NOTE | 2024-09-07 14:12 | HO.PM.IMPN ---
Subjective Subjective Date of Service: 09/07/24 Interval History: Episodes of vomiting and high residuals overnight. Tolerating pureed diet and thin liquids Will hold G-tube feedings No other acute events overnight Review of Systems All other system reviewed and are negative Physical Exam Vital Signs: Vital Signs: Last Vital Signs Temp 97.5 F 09/07/24 11:38 Pulse 81 09/07/24 11:38 Resp 18 09/07/24 11:38 BP 123/59 L 09/07/24 11:38 Pulse Ox 97 09/07/24 11:38 O2 Del Method Room Air 09/07/24 11:38 O2 Flow Rate 97 08/30/24 03:59 BMI result Body Mass Index 21.9 Const: Other: Gen: in no acute distress HEENT: sclera anicteric, moist mucus membranes Neck: supple Lungs: clear to auscultation bilaterally Heart: regular rate and rhythm, no murmurs Abd: soft, non-tender, non-distended, GJ tube site intact, soft brown stool Ext: no edema Neuro: alert and oriented x3, L hemiparesis Psych: appropriate affect Skin dry scaly lower extremities. Objective Data Active Medications Acetaminophen (Acetaminophen 325 Mg Tablet) 650 mg G-TUBE Q6H PRN PRN Reason: Pain, Mild (Pain Scale 1-3), fever or headache Last Admin: 09/04/24 20:33 Dose: 650 mg Documented By: LEE Al Hydroxide/Mg Hydroxide (Magnesium Hydrox/Alum Hydrox 30 Ml Oral.Susp) 30 ml G-TUBE Q4H PRN PRN Reason: heart burn Last Admin: 09/05/24 08:09 Dose: 30 ml Documented By: RICCIRISHI Apixaban (Apixaban 5 Mg Tablet) 5 mg PO BID [facility] Last Admin: 08/27/24 10:49 Dose: 5 mg Documented By: DOBROB Atorvastatin Calcium (Atorvastatin Calcium 80 Mg Tablet) 80 mg G-TUBE DAILY [facility] Last Admin: 09/07/24 08:00 Dose: 80 mg Documented By: ABBY Bisacodyl (Bisacodyl 10 Mg Supp.Rect) 10 mg [place] DAILY PRN PRN Reason: Constipation Calamine (Calamine/Zinc Oxide Lotion 177 Ml Bottle) 1 appl TOPICAL BID PRN; Protocol PRN Reason: lower legs Carvedilol (Carvedilol 6.25 Mg Tablet) 6.25 mg G-TUBE BID [facility]; Protocol Last Admin: 09/07/24 08:00 Dose: 6.25 mg Documented By: ABBY Diphenhydramine HCl (Diphenhydramine Hcl 25 Mg Capsule) 25 mg PO Q4H PRN PRN Reason: Itching Last Admin: 09/07/24 08:00 Dose: 25 mg Documented By: ABBY Doxazosin Mesylate (Doxazosin Mesylate 2 Mg Tablet) 2 mg G-TUBE DAILY [facility]; Protocol Last Admin: 09/07/24 07:59 Dose: 2 mg Documented By: ABBY Finasteride (Finasteride 5 Mg Tablet) 5 mg PO DAILY [facility] Last Admin: 09/07/24 08:00 Dose: 5 mg Documented By: ABBY Gabapentin (Gabapentin 100 Mg Capsule) 100 mg G-TUBE BID [facility] Last Admin: 09/07/24 08:00 Dose: 100 mg Documented By: ABBY Insulin Glargine (Insulin Glargine,Hum.Rec.Anlog 100 Unit/Ml 10 Ml Vial) 10 unit SUBCUT DAILY [facility] Last Admin: 09/07/24 07:48 Dose: Not Given Documented By: ABBY Non-Admin Reason: Hold Per Insulin Human Lispro (Insulin Lispro 100 Unit/Ml 3 Ml Vial) 0 unit SUBCUT QIDACHS [facility]; Protocol Last Admin: 09/07/24 11:48 Dose: 2 unit Documented By: MILE Lidocaine (Lidocaine 4 % Patch Adh..Patch) 1 patch TRANSDERMA DAILY PRN; Protocol PRN Reason: Back Pain Lidocaine (Lidocaine 4 % Patch Adh..Patch) 1 patch TRANSDERMA DAILY PRN; Protocol PRN Reason: SHOULDER PAIN Last Admin: 09/04/24 02:05 Dose: 1 patch Documented By: ANUPAM Magnesium Hydroxide (Milk Of Magnesia 30 Ml Oral.Susp) 30 ml G-TUBE DAILY PRN PRN Reason: Constipation Metoclopramide HCl (Metoclopramide Hcl 10 Mg Tablet) 10 mg G-TUBE Q6H PRN PRN Reason: GERD Last Admin: 09/05/24 17:38 Dose: 10 mg Documented By: RICCIAV Multivitamins/Minerals (Multivitamin With Minerals Liq 15 Ml Liquid) 15 ml G-TUBE DAILY [facility] Last Admin: 09/07/24 07:59 Dose: 15 ml Documented By: ABBY Omeprazole (Omeprazole/Na Bicarb Oral Susp 20 Mg/10 Ml Ud Cup) 20 mg PO BID@0630,1630 [facility] Last Admin: 09/07/24 06:16 Dose: 20 mg Documented By: KLAUDIA Ondansetron HCl (Ondansetron Hcl 4 Mg/2 Ml Vial) 4 mg IVPUSH Q8H PRN PRN Reason: Nausea and Vomiting Last Admin: 09/07/24 07:31 Dose: 4 mg Documented By: ABBY Polyethylene Glycol (Polyethylene Glycol 3350 17 Gm Powd.Pack) 17 gm G-TUBE DAILY [facility] Last Admin: 09/07/24 07:48 Dose: Not Given Documented By: ABBY Non-Admin Reason: Patient Refused Prednisone (Prednisone 5 Mg Tablet) 5 mg G-TUBE DAILY [facility] Last Admin: 09/07/24 08:00 Dose: 5 mg Documented By: ABBY Senna (Sennosides Oral Syrup 8.8 Mg/5 Ml) 8.8 mg G-TUBE BID PRN PRN Reason: Constipation Last Admin: 08/31/24 20:45 Dose: 8.8 mg Documented By: WANDER Sodium Chloride (0.9 % Sodium Chloride Flush 3 Ml Syringe) 3 ml IVFLUSH QSHIFT [facility] Last Admin: 09/07/24 06:58 Dose: 3 ml Documented By: ABBY Tacrolimus (Tacrolimus 0.5 Mg Capsule) 0.5 mg G-TUBE BID [facility] Last Admin: 09/07/24 08:00 Dose: 0.5 mg Documented By: ABBY Tenofovir Disoproxil Fumarate (Tenofovir Disoproxil Fumarate 300 Mg Tablet) 300 mg G-TUBE DAILY [facility] Last Admin: 09/07/24 07:59 Dose: 300 mg Documented By: ABBY Tramadol HCl (Tramadol Hcl 50 Mg Tablet) 25 mg PO Q6H PRN PRN Reason: Pain, Severe (Pain Scale 7-10) Last Admin: 09/05/24 22:51 Dose: 25 mg Documented By: KLAUDIA Triamcinolone Acetonide (Triamcinolone Acet 0.1 % Cream 15 Gm Tube) 1 appl TOPICAL DAILY [facility]; Protocol Last Admin: 09/07/24 08:01 Dose: 1 appl Documented By: ABBY Labs 09/07/24 06:49 09/07/24 06:49 Labs: Laboratory Results - last 24 hr 09/06/24 09/06/24 09/07/24 16:14 20:21 06:49 MCV 76.9 L MCH 22.6 L MCHC 29.4 L RDW 16.5 H Plt Count 321 MPV 10.8 Absolute Nucleated RBC 0.000 Nucleated RBC % (auto) 0.0 Anion Gap 13 Estim Creat Clear Calc 96.2 Estimated GFR > 60 POC Glucose 201 H 176 H Random Glucose 159 H Calcium 9.1 D 09/07/24 09/07/24 07:25 11:16 MCV MCH MCHC RDW Plt Count MPV Absolute Nucleated RBC Nucleated RBC % (auto) Anion Gap Estim Creat Clear Calc Estimated GFR POC Glucose 162 H 188 H Random Glucose Calcium Assessment and Plan (1) Insulin dependent type 2 diabetes mellitus: Status: Acute (2) Feeding tube blocked: Status: Acute (3) Nausea: Status: Acute Plan 63yo M sent in from [facility] with PMHx CVA/L hemiparesis, dysphagia with GJ tube, PVD, ESRD s/p kidney transplant, HCV cirrhosis s/p liver transplant, DM2, pAF on apixaban, hx polysubstance abuse presented to ED 08/20 with dizziness, N/V, chest pain; had tested positive for Covid-19 08/09 family appealed discharge back to [facility] and requested placement elsewhere admitted for cofee-ground emesis, CT bleeding scan negative for acute bleed, H+H stable 1.Acute UGIB -no recurrent bleed -underwent EGD by Dr. Luis that showed erosive esophagitis with no active bleed,g- J tube in good position - H+H stable, continue PPI - in regard to G-tube blockage started on tube feed via G-tube, had episodes of vomiting therefore feedings cut back to 25 mL/hours , this morning again noted to have high residuals and vomiting overnight therefore will hold tube feeds will discuss with mortgage loan officer regarding further adjustment of tube feeding rate 2. Paroxysmal atrial fibrillation -sinus rhythm ,continue carvedilol/apixaban 3.Kidney/liver transplant - continue tacrolimus + prednisone 3.DM2 -acceptable control on Lantus 10 units and insulin sliding scale 4. rash - atypical eczema vs scabies Treated presumptively for scabies with ivermectin 200 mcg/kg x1 dose 08/25/24; repeat on 09/01/24, persistent itching will apply calamine lotion to lower extremities, Kenalog to left upper extremity DC IV Benadryl and place on by mouth Benadryl prn. 5. hx ?HBV - continue tenofovir 6 prostatism - doxazosin, finasteride 7. hx CVA - continue statin; d/c ASA [apixaban should be sufficient] DVT prophylaxis with Eliquis 5 mg b.i.d. Full code dispo - STR placement Quality Stroke Does the patient have a stroke diagnosis?: No VTE Prior VTE?: No VTE Risk Level:: Medical - moderate - high VTE Device Contraindication: N/A - Device Ordered VTE Drug Contraindication: Treatment Not Indicated
[2024-09-07 15:16] VITALS: BP 104/55; PULSE 83; RESP 18; TEMP 36.5; O2SAT 98
[2024-09-07 16:14] LABS: Glucose, Whole Blood 229 mg/dL (60-115)
[2024-09-07 19:47] VITALS: BP 116/66; PULSE 85; RESP 18; TEMP 36.3; O2SAT 98
[2024-09-07 20:02] LABS: Glucose, Whole Blood 183 mg/dL (60-115)
[2024-09-07] MEDS: Calamine/Zinc Oxide LOTION 177 ML BOTTLE 1 APPL TOPICAL (20:16)
[2024-09-07 23:35] VITALS: BP 120/68; PULSE 87; RESP 18; TEMP 36.2; O2SAT 94
[2024-09-08 04:00] VITALS: BP 118/62; PULSE 87; RESP 18; TEMP 36.1; O2SAT 98
[2024-09-08] MEDS: diphenhydrAMINE HCL 25 MG CAPSULE PO ×2 (05:11→20:16)
[2024-09-08] MEDS: Omeprazole/Na Bicarb Oral Susp 20 MG/10 ML UD Cup PO ×2 (05:32→16:57)
[2024-09-08 07:14] VITALS: BP 121/58; PULSE 84; RESP 14; TEMP 36.4; O2SAT 99
[2024-09-08 07:33] LABS: Glucose, Whole Blood 176 mg/dL (60-115)
[2024-09-08] MEDS: predniSONE 5 MG TABLET G-TUBE (08:11)
[2024-09-08] MEDS: Multivitamin with Minerals Liq 15 ML LIQUID G-TUBE (08:11)
[2024-09-08] MEDS: Gabapentin 100 MG CAPSULE G-TUBE ×2 (08:11→20:16)
[2024-09-08] MEDS: Atorvastatin Calcium 80 MG TABLET G-TUBE (08:11)
[2024-09-08] MEDS: Doxazosin Mesylate 2 MG TABLET G-TUBE (08:11)
[2024-09-08] MEDS: Tenofovir Disoproxil Fumarate 300 MG TABLET G-TUBE (08:11)
[2024-09-08] MEDS: Finasteride 5 MG TABLET PO (08:12)
[2024-09-08] MEDS: 0.9 % Sodium Chloride Flush 3 ML SYRINGE IVFLUSH (08:12)
[2024-09-08] MEDS: carvediloL 6.25 MG TABLET G-TUBE ×2 (08:12→20:28)
[2024-09-08] MEDS: Insulin Lispro 100 UNIT/ML 3 ML VIAL SUBCUT ×4 (08:12→20:56)
[2024-09-08] MEDS: Tacrolimus 0.5 MG CAPSULE G-TUBE ×2 (08:12→20:19)
[2024-09-08] MEDS: Insulin Glargine,Hum.rec.anlog 100 UNIT/ML 10 ML VIAL 10 UNIT SUBCUT (08:12)
[2024-09-08] MEDS: Triamcinolone Acet 0.1 % Cream 15 GM TUBE 1 APPL TOPICAL (08:22)
--- NOTE | 2024-09-08 10:56 | MHC.CLN ---
F/U TF ON HOLD DUE TO VOMITING/HIGH RESIDUALS. ATE 100% OF BREAKFAST THIS AM. DIET=PUREE WITH NECTAR THICK LIQUIDS. MAGIC CUP TID PROVIDES 870 KCALS, 27 G PROTEIN. WHEN ABLE TO RESUME TUBE FEED, RECOMMEND NEPRO TF AT 25 ML/HOUR CONTINUOUS WITH 240 ML FREE WATER FLUSHES Q 6 HOURS TO PROVIDE 1080 KCALS (51% EST. KCALS NEEDS), 49G PROTEIN (58% EST PROTEIN NEEDS), 1396 TOTAL ML FREE WATER FROM FORMULA AND FLUSHES (20 ML/KG). MONITOR PO INTAKE IN ADDITION TO TF TOLERANCE AND LYTES.
[2024-09-08 11:04] LABS: Glucose, Whole Blood 172 mg/dL (60-115)
--- NOTE | 2024-09-08 11:33 | MHC.SL.SWA ---
Speech Pathologist Impression: Mild pharyngeal dysphagia secondary to post stroke physiological changes. Risk of Aspiration Due to: Neurological Condition Dysphasia Diet Status: Liquid Consistency and Strategies for Safe Swallow: Liquid Intake Recommendation: Marquez Thick Liquid Intake Strategies: No Straws Solid Food Consistency: Dietary Recommendations: Pureed (NDD1) Additional Modifications to Solid Foods: Supplemental PO puree/nectar thick with 1:1 assist as tolerated. Meds via TF. Discontinue feeding if he evidences any overt signs aspiration. Oral Medication Intake: NPO Please contact the pharmacy regarding appropriate crushable or liquid drug formulations that are available whenever modified delivery is recommended. Compensatory Strategies and Precautions to be Taken for Safe Swallow: Sitting Upright (90 deg) Small Bites and Sips Supervision While Eating and Drinking for Safe Swallow: Total Assistance (1:1) Foods to Avoid: Swallowing Recommended Treatments: Compens. Strategy Educat. Recommendation for Speech: Inpatient Speech Therapy Comment: Patient from SNF, w/ GJ tube. PO for pleasure on modified diet of NTL and purees. Aspiration precautions. Cue pt to clear throat/re-swallow when voice wet. Pt will need continued [facility] intervention d/t nature of dysphagia. Frequency/Duration: M-F Date Range for Service Req: Timeline to reassess: PRN Manuscript Editor Clinican/Clinical Fellow: No Supervisory Statement: I have reviewed and agree with the student/clinical fellow's documentation: N/A Speech Language Pathologist: Gabrielle Roman M.S., [facility]
[2024-09-08 11:40] VITALS: BP 125/60; PULSE 80; RESP 14; TEMP 36.2; O2SAT 95
--- NOTE | 2024-09-08 12:10 | HO.PM.IMPN ---
Subjective Subjective Date of Service: 09/08/24 Interval History: Markedly improve. Tolerating diet without issue. Tube feeds held Review of Systems Denies chest pain Denies shortness of breath Denies nausea vomiting diarrhea denies fever chills Physical Exam Vital Signs: Vital Signs: Last Vital Signs Temp 97.2 F 09/08/24 11:40 Pulse 80 09/08/24 11:40 Resp 14 09/08/24 11:40 BP 125/60 09/08/24 11:40 Pulse Ox 95 09/08/24 11:40 O2 Del Method Room Air 09/08/24 11:40 O2 Flow Rate 97 08/30/24 03:59 BMI result Body Mass Index 21.9 Const: Other: No acute distress Resp: Other: Clear to auscultation bilaterally no rales rhonchi or wheezes Cardio: Other: No S4:positive S1-S2; no S3 murmurs rubs or gallops GI: Other: Soft nontender nondistended normoactive bowel sounds Extrem: Other: No edema bilaterally Objective Data Active Medications Acetaminophen (Acetaminophen 325 Mg Tablet) 650 mg G-TUBE Q6H PRN PRN Reason: Pain, Mild (Pain Scale 1-3), fever or headache Last Admin: 09/04/24 20:33 Dose: 650 mg Documented By: LEE Al Hydroxide/Mg Hydroxide (Magnesium Hydrox/Alum Hydrox 30 Ml Oral.Susp) 30 ml G-TUBE Q4H PRN PRN Reason: heart burn Last Admin: 09/05/24 08:09 Dose: 30 ml Documented By: RICCIAV Apixaban (Apixaban 5 Mg Tablet) 5 mg PO BID [facility] Last Admin: 08/27/24 10:49 Dose: 5 mg Documented By: DOBROB Atorvastatin Calcium (Atorvastatin Calcium 80 Mg Tablet) 80 mg G-TUBE DAILY [facility] Last Admin: 09/08/24 08:11 Dose: 80 mg Documented By: SAMUEL Bisacodyl (Bisacodyl 10 Mg Supp.Rect) 10 mg [place] DAILY PRN PRN Reason: Constipation Calamine (Calamine/Zinc Oxide Lotion 177 Ml Bottle) 1 appl TOPICAL BID PRN; Protocol PRN Reason: lower legs Last Admin: 09/07/24 20:16 Dose: 1 appl Documented By: KAELA Carvedilol (Carvedilol 6.25 Mg Tablet) 6.25 mg G-TUBE BID [facility]; Protocol Last Admin: 09/08/24 08:12 Dose: 6.25 mg Documented By: SAMUEL Diphenhydramine HCl (Diphenhydramine Hcl 25 Mg Capsule) 25 mg PO Q4H PRN PRN Reason: Itching Last Admin: 09/08/24 05:11 Dose: 25 mg Documented By: KAELA Doxazosin Mesylate (Doxazosin Mesylate 2 Mg Tablet) 2 mg G-TUBE DAILY [facility]; Protocol Last Admin: 09/08/24 08:11 Dose: 2 mg Documented By: SAMUEL Finasteride (Finasteride 5 Mg Tablet) 5 mg PO DAILY [facility] Last Admin: 09/08/24 08:12 Dose: 5 mg Documented By: SAMUEL Gabapentin (Gabapentin 100 Mg Capsule) 100 mg G-TUBE BID [facility] Last Admin: 09/08/24 08:11 Dose: 100 mg Documented By: SAMUEL Insulin Glargine (Insulin Glargine,Hum.Rec.Anlog 100 Unit/Ml 10 Ml Vial) 10 unit SUBCUT DAILY [facility] Last Admin: 09/08/24 08:12 Dose: 10 unit Documented By: SAMUEL Insulin Human Lispro (Insulin Lispro 100 Unit/Ml 3 Ml Vial) 0 unit SUBCUT QIDACHS [facility]; Protocol Last Admin: 09/08/24 11:52 Dose: 2 unit Documented By: SAMUEL Lidocaine (Lidocaine 4 % Patch Adh..Patch) 1 patch TRANSDERMA DAILY PRN; Protocol PRN Reason: Back Pain Lidocaine (Lidocaine 4 % Patch Adh..Patch) 1 patch TRANSDERMA DAILY PRN; Protocol PRN Reason: SHOULDER PAIN Last Admin: 09/04/24 02:05 Dose: 1 patch Documented By: ANUPAM Magnesium Hydroxide (Milk Of Magnesia 30 Ml Oral.Susp) 30 ml G-TUBE DAILY PRN PRN Reason: Constipation Metoclopramide HCl (Metoclopramide Hcl 10 Mg Tablet) 10 mg G-TUBE Q6H PRN PRN Reason: GERD Last Admin: 09/05/24 17:38 Dose: 10 mg Documented By: DAVID Multivitamins/Minerals (Multivitamin With Minerals Liq 15 Ml Liquid) 15 ml G-TUBE DAILY [facility] Last Admin: 09/08/24 08:11 Dose: 15 ml Documented By: SAMUEL Omeprazole (Omeprazole/Na Bicarb Oral Susp 20 Mg/10 Ml Ud Cup) 20 mg PO BID@0630,1630 [facility] Last Admin: 09/08/24 05:32 Dose: 20 mg Documented By: KAELA Ondansetron HCl (Ondansetron Hcl 4 Mg/2 Ml Vial) 4 mg IVPUSH Q8H PRN PRN Reason: Nausea and Vomiting Last Admin: 09/07/24 22:54 Dose: 4 mg Documented By: KAELA Polyethylene Glycol (Polyethylene Glycol 3350 17 Gm Powd.Pack) 17 gm G-TUBE DAILY [facility] Last Admin: 09/08/24 08:22 Dose: Not Given Documented By: SAMUEL Non-Admin Reason: Patient Refused Prednisone (Prednisone 5 Mg Tablet) 5 mg G-TUBE DAILY [facility] Last Admin: 09/08/24 08:11 Dose: 5 mg Documented By: SAMUEL Senna (Sennosides Oral Syrup 8.8 Mg/5 Ml) 8.8 mg G-TUBE BID PRN PRN Reason: Constipation Last Admin: 08/31/24 20:45 Dose: 8.8 mg Documented By: WANDER Sodium Chloride (0.9 % Sodium Chloride Flush 3 Ml Syringe) 3 ml IVFLUSH QSHIFT [facility] Last Admin: 09/08/24 08:12 Dose: 3 ml Documented By: SAMUEL Tacrolimus (Tacrolimus 0.5 Mg Capsule) 0.5 mg G-TUBE BID [facility] Last Admin: 09/08/24 08:12 Dose: 0.5 mg Documented By: SAMUEL Tenofovir Disoproxil Fumarate (Tenofovir Disoproxil Fumarate 300 Mg Tablet) 300 mg G-TUBE DAILY [facility] Last Admin: 09/08/24 08:11 Dose: 300 mg Documented By: SAMUEL Tramadol HCl (Tramadol Hcl 50 Mg Tablet) 25 mg PO Q6H PRN PRN Reason: Pain, Severe (Pain Scale 7-10) Last Admin: 09/05/24 22:51 Dose: 25 mg Documented By: KLAUDIA Triamcinolone Acetonide (Triamcinolone Acet 0.1 % Cream 15 Gm Tube) 1 appl TOPICAL DAILY [facility]; Protocol Last Admin: 09/08/24 08:22 Dose: 1 appl Documented By: SAMUEL Labs 09/07/24 06:49 09/07/24 06:49 Labs: Laboratory Results - last 24 hr 09/07/24 09/07/24 09/08/24 16:10 19:40 07:16 POC Glucose 229 H 183 H 176 H 09/08/24 10:59 POC Glucose 172 H Assessment and Plan (1) Acute upper gastrointestinal bleeding: Status: Acute (2) Insulin dependent type 2 diabetes mellitus: Status: Acute Plan d4 for 63yo M sent in from [facility]F with PMHx CVA/L hemiparesis, dysphagia with GJ tube, PVD, ESRD s/p kidney transplant, HCV cirrhosis s/p liver transplant, DM2, pAF on apixaban, hx polysubstance abuse presented to ED 08/20 with dizziness, N/V, chest pain; had tested positive for Covid-19 08/09 family appealed discharge back to [facility] and requested placement elsewhere admitted for cofee-ground emesis, CT bleeding scan negative for acute bleed, H+H stable 1.Acute UGIB due to erosive esophagitis - H+H stable, continue PPI -tolerating diet; tube feeds on hold -no further bleeding 2. Paroxysmal atrial fibrillation -sinus rhythm presently -continue carvedilol/apixaban -adjust therapies as clinically indicated 3.Kidney/liver transplant - continue tacrolimus + prednisone 3.DM2 -acceptable control on current therapies -lispro correctional scale -adjust as indicated Lovenox Full code dispo - awaiting STR placement Quality Stroke Does the patient have a stroke diagnosis?: No VTE Prior VTE?: No VTE Risk Level:: Medical - moderate - high VTE Device Contraindication: N/A - Device Ordered VTE Drug Contraindication: Treatment Not Indicated
[2024-09-08 15:11] VITALS: BP 110/60; PULSE 94; RESP 16; TEMP 36.7; O2SAT 98
--- NOTE | 2024-09-08 15:12 | MHC.CM.PN ---
bed search expanded ,vantage of kale still pending auth
[2024-09-08 16:06] LABS: Glucose, Whole Blood 202 mg/dL (60-115)
--- NOTE | 2024-09-08 16:50 | PC.NURSE ---
Unable to obtain IV access MD Dee aware, per ok to DC IV.
[2024-09-08 20:00] VITALS: BP 130/62; PULSE 93; RESP 16; TEMP 36.6; O2SAT 98
[2024-09-08 20:31] LABS: Glucose, Whole Blood 186 mg/dL (60-115)
[2024-09-08] MEDS: Calamine/Zinc Oxide LOTION 177 ML BOTTLE 1 APPL TOPICAL (20:35)
[2024-09-08 23:32] VITALS: BP 118/68; PULSE 98; RESP 16; TEMP 36.3; O2SAT 98
[2024-09-09 04:00] VITALS: BP 142/88; PULSE 94; RESP 16; TEMP 36.4; O2SAT 98
[2024-09-09] MEDS: Omeprazole/Na Bicarb Oral Susp 20 MG/10 ML UD Cup PO (05:27)
[2024-09-09] MEDS: Acetaminophen 325 MG TABLET 650 MG G-TUBE (06:16)
[2024-09-09 07:23] VITALS: BP 113/66; PULSE 93; RESP 16; TEMP 36.6; O2SAT 99
[2024-09-09 07:54] LABS: Glucose, Whole Blood 168 mg/dL (60-115)
[2024-09-09] MEDS: Finasteride 5 MG TABLET PO (08:13)
[2024-09-09] MEDS: carvediloL 6.25 MG TABLET G-TUBE (08:13)
[2024-09-09] MEDS: Multivitamin with Minerals Liq 15 ML LIQUID G-TUBE (08:13)
[2024-09-09] MEDS: Doxazosin Mesylate 2 MG TABLET G-TUBE (08:14)
[2024-09-09] MEDS: Tacrolimus 0.5 MG CAPSULE G-TUBE (08:14)
[2024-09-09] MEDS: Tenofovir Disoproxil Fumarate 300 MG TABLET G-TUBE (08:14)
[2024-09-09] MEDS: Insulin Lispro 100 UNIT/ML 3 ML VIAL SUBCUT ×2 (08:14→11:37)
[2024-09-09] MEDS: Gabapentin 100 MG CAPSULE G-TUBE (08:14)
[2024-09-09] MEDS: Atorvastatin Calcium 80 MG TABLET G-TUBE (08:14)
[2024-09-09] MEDS: predniSONE 5 MG TABLET G-TUBE (08:14)
[2024-09-09] MEDS: Insulin Glargine,Hum.rec.anlog 100 UNIT/ML 10 ML VIAL 10 UNIT SUBCUT (08:15)
[2024-09-09] MEDS: Triamcinolone Acet 0.1 % Cream 15 GM TUBE 1 APPL TOPICAL (08:27)
[2024-09-09] MEDS: diphenhydrAMINE HCL 25 MG CAPSULE PO (10:48)
[2024-09-09 11:27] LABS: Glucose, Whole Blood 206 mg/dL (60-115)
[2024-09-09 12:00] VITALS: BP 125/61; PULSE 87; RESP 16; TEMP 36.6; O2SAT 98
--- NOTE | 2024-09-09 12:50 | MHC.SPEECHCO ---
Per MD, Pt leaving today with a patent feeding tube and PO recommendations for Puree and Honey-Thick Liquids. No further MEAT STOCKER intervention required at this time.
--- NOTE | 2024-09-09 13:33 | P.DS_ITS ---
DS: Providers Provider Date of Service: 09/09/24 Date of admission: 08/24/24 12:26 Date of discharge: 09/09/24 Primary care physician: Eduardo Apodaca MD Consults: 08/24/24 12:21 Consult to Gastroenterology Routine Consulting Provider: Armani Luis Reason for consultation: Coffee-ground emesis while in overflow; similar ep at [facility] [place] 08/25/24 08:05 Consult to Wound Care Routine Reason for consultation: open areas to leg and back side 08/27/24 11:39 Consult to General Surgery Routine Consulting Provider: [facility] [place] General Surgeons Reason for consultation: repeated G-tube clogging DS: Diagnosis Discharge Diagnosis (1) Acute upper gastrointestinal bleeding: Status: Acute (2) Insulin dependent type 2 diabetes mellitus: Status: Acute DS: Summary Hospital Course Hospital Course: 63-year-old male who resides at a SNF with a PMH significant for?CVA with residual left-sided hemiparesis, dysphagia with G-J tube in place, PVD, kidney transplant, liver transplant, polysubstance use disorder, insulin-dependent type 2 diabetes,and paroxysmal AFib on Eliquis who presents initially presented to the ED on 08/20/24 from [facility] with multiple complaints including dizziness for several months, chest pain for a ?long time?, and nausea/vomiting. Workup at that time was unremarkable except for patient continued to test positive for COVID. Family was consulted and they appealed discharge back to [facility] and wanted him placed somewhere else. Patient was then placed in physician observation and moved to the overflow where he had a large amount of coffee-ground emesis at 04:00 this morning which was heme-positive. CT of abdomen and pelvis bleeding scan was completed which was limited secondary to residual oral contrast, but was negative for any definitive GI bleed. Labs were grossly unremarkable and baseline for patient with a stable H&H of 11.3/36.4. Chronic transaminitis with AST 68, ALT 75, and alk-phos 205 with normal T bili of 0.5. UA negative for UTI. Patient currently complains of continued nausea with some lightheadedness and dizziness as well as ?stomach? pain. Denies cough or difficulty breathing. Currently no chest pain or pressure. Patient will be admitted to the hospital for treatment and further evaluation of coffee-ground emesis concerning for possible UGIB. Of note, patient was recently hospitalized at [facility] [place] from 08/09-08/17 where he presented from an SNF due to intractable nausea and vomiting and was admitted for COVID infection with concern for superimposed bacterial pneumonia. Hospital course was complicated by coffee-ground emesis that resolved and H&H remained stable throughout his stay. Does not appear patient got an EGD while there, but had a follow up appointment on 08/20 4 follow up gastric emptying study which [facility] apparently did not make arrangements for. Patient did undergo a small bowel series and RUQ U/S which was negative for any acute abno rmalities. Patient also follows with GI where he was tentatively diagnosed with erosive gastritis, esophagitis, possible gastroparesis on 08/04/2024. Hospital Course Patient admitted to general medical floor and seen in consultation by GI. On 08/25/2024 patient underwent an EGD which demonstrated erosive esophagitis with no active bleeding. Patient was started on IV pantoprazole and had no further coffee-ground emesis. Patient presents with G/J-tube which during this hospitalization appeared to be blocked as per nursing. Patient underwent Interventional Radiology clearing of blockage of tube with good results. Subsequent Gastrografin study demonstrated patency and all the tubes. Patient was seen by speech several times and ultimately was started on a pureed diet with honey thick liquids for which he tolerated the last several days. GJ tube has been flush routinely but not utilized for feeding at this time. It can be restarted at the facility at their discretion to supplement as p.o. intake. At this point in time he is medically acceptable for discharge back to long-term care Time Attestation Discharge Coordination Time (in mins): 35 Quality: Safe Use of Opioids Does Pt have an Active Cancer Diagnosis on the Problem List?: No Quality: Stroke Does the patient have a stroke diagnosis?: No Physical Exam Vital Signs: Vital Signs: Last Vital Signs Temp 97.8 F 09/09/24 12:00 Pulse 87 09/09/24 12:00 Resp 16 09/09/24 12:00 BP 125/61 09/09/24 12:00 Pulse Ox 98 09/09/24 12:00 O2 Del Method Room Air 09/09/24 12:00 O2 Flow Rate 97 08/30/24 03:59 BMI result Body Mass Index 21.9 Const: Other: No acute distress Resp: Other: Clear to auscultation bilaterally no rales rhonchi or wheezes Cardio: Other: No S4:positive S1-S2; no S3 murmurs rubs or gallops GI: Other: Soft nontender nondistended normoactive bowel sounds.G/J tube site CDI. Extrem: Other: No edema bilaterally DS: Data Data Completed and Pending Completed studies during hospitalization [Text1]: Pending at discharge 08/25/24 12:30 Surgical [PTH] Routine Labs on day of discharge: Laboratory Results - last 24 hr 09/08/24 09/08/24 09/09/24 16:00 20:22 07:25 POC Glucose 202 H 186 H 168 H 09/09/24 11:13 POC Glucose 206 H Discharge Plan Discharge Anticipated Discharge Date/Time: 09/09/24 13:26 Patient Disposition: Xfer SNF Discharge Diagnosis: UGIB secondary to esophagitis Referrals: [facility] [Outside] Eduardo Apodaca MD [Primary Care Provider] - 1 Week Discharge Medications: New diphenhydramine HCl [Banophen] 25 mg Capsule 25 mg PO Q4H PRN (Reason: Itching) Qty: 120 0RF Continued multivitamin Tablet 1 tab PO DAILY carvedilol [Coreg] 6.25 mg Tablet 6.25 mg PO BID Rx Instructions: must administer with a meal/food insulin glargine 100 unit/mL Solution 10 unit SUBCUT DAILY lidocaine 4 % Adhesive Patch,Medicated 1 patch TOPICAL DAILY PRN (Reason: Back Pain) Rx Instructions: BACK lidocaine 4 % Adhesive Patch,Medicated 1 patch TOPICAL DAILY PRN (Reason: SHOULDER PAIN) Rx Instructions: SHOULDER PAIN polyethylene glycol 3350 17 gram Powder In Packet 17 g PO DAILY prednisone 5 mg Tablet 5 mg PO DAILY gabapentin 250 mg/5 mL Solution 100 mg PO BID aspirin 81 mg Tablet,Delayed Release (Dr/Ec) 81 mg PO DAILY bisacodyl 10 mg Suppository 10 mg [place] DAILY PRN (Reason: Constipation) diphenhydramine HCl [Benadryl] 25 mg Capsule 25 mg PO Q4H PRN (Reason: Itching) lansoprazole 30 mg Capsule,Delayed Release(Dr/Ec) 30 mg PO DAILY acetaminophen 500 mg/15 mL Liquid 1,000 mg PO Q8H PRN (Reason: Pain) finasteride 5 mg Tablet 5 mg PO DAILY metoclopramide HCl 10 mg Tablet 10 mg PO Q6H PRN (Reason: GERD) doxazosin 2 mg Tablet 2 mg PO DAILY insulin lispro 100 unit/mL Insulin Pen 1 sliding scale dose SUBCUT USEASDIRECTD Rx Instructions: 150-179 = 4 UNITS 180-209 =7 UNITS 210 - 239 = 10 UNITS 240 - 269 = 13 UNITS 270 - 299 = 16 UNITS 300 - 329 = 19 UNITS 330 - 359 = 22 UNITS 360 - 389 = 25 UNIT rosuvastatin 20 mg Tablet 40 mg PO DAILY entecavir 0.5 mg Tablet 0.5 mg PO DAILY apixaban 5 mg Tablet 5 mg PO BID albuterol-budesonide 90-80 mcg/actuation Hfa Aerosol Inhaler 2 inh INHALATION QID PRN (Reason: Wheezing) fluticasone furoate-vilanterol 50-25 mcg/dose Blister With Device 1 ea INHALATION DAILY sennosides [senna] 8.8 mg/5 mL Syrup 8.8 mg PO BID PRN (Reason: Constipation) tacrolimus 0.5 mg Capsule 0.5 mg PO Q12H Discharge Orders: Discharge Order (Routine); Ordered 09/09/24 Ordered By: Reed Dee Diet: Puree-honey thick liquids Activity on Discharge: As tolerated Stand Alone Forms: Patient Portal Discharge page Print Language: Estonian Care Plan Goals: Meds as per discharge instructions Health Concerns: Tube feedings on hold secondary to patient's oral intake Plan of Treatment: Care as per receiving facility Assessment: See discharge summary
[2024-09-09 15:15] VITALS: BP 121/85; PULSE 103; RESP 20; TEMP 36.8; O2SAT 94
== END 2024-09-09 15:34 | disposition skilled nursing facility (03) | DRG 380 ==
LOC: HO.ED 08-24 07:14 → HO.EDOVER 08-24 12:43 → HO.IMC 08-24 15:17 → HO.S3 09-05 18:55
PROVIDERS: Emergency Medicine; Family Medicine; Hospitalist; Internal Medicine Gastroenterology; Student in an Organized Health Care Education/Training Program; Admitting Provider Student in an Organized Health Care Education/Training Program; Emergency Provider Emergency Medicine Emergency Medical Services; PCP Family Medicine; Visit Provider Hospitalist
PROC: 0DB78ZX Excision of Stomach, Pylorus, Via Natural or Artificial Opening Endoscopic, Diagnostic (ICD-10-PCS; principal; 2024-08-25 12:00)
PROC: 0D20XUZ Change Feeding Device in Upper Intestinal Tract, External Approach (ICD-10-PCS; CPT 49441; principal; 2024-08-28 13:10)
DX: K22.11 Ulcer of esophagus with bleeding (principal); U07.1 COVID-19; I69.354 Hemiplegia and hemiparesis following cerebral infarction affecting left non-dominant side; Z94.0 Kidney transplant status; Z94.4 Liver transplant status; K94.23 Gastrostomy malfunction; E78.5 Hyperlipidemia, unspecified; B86 Scabies; E11.9 Type 2 diabetes mellitus without complications; N40.0 Benign prostatic hyperplasia without lower urinary tract symptoms; I48.0 Paroxysmal atrial fibrillation; F19.91 Other psychoactive substance use, unspecified, in remission; Z75.1 Person awaiting admission to adequate facility elsewhere; Z91.199 Patient's noncompliance with other medical treatment and regimen due to unspecified reason; Z86.19 Personal history of other infectious and parasitic diseases; Z79.4 Long term (current) use of insulin; Z79.01 Long term (current) use of anticoagulants; Z79.52 Long term (current) use of systemic steroids; Z79.82 Long term (current) use of aspirin; Z79.621 Long term (current) use of calcineurin inhibitor; Z79.899 Other long term (current) drug therapy
CPT/HCPCS: 0241U; 36415; 49452; 70450; 71045; 74018; 74176; 74178; 80048; 80053; 80076; 81001; 81003; 82271; 82272; 82947; 83690; 83735; 83880; 84484; 85025; 85027; 85610; 85730; 86140; 86850; 86900; 86901; 88305; 88313; 88342; 92526; 92610; 93005; 97161; 97162; 99285; J0696; J1200; J2003; J2405; J2470; J2704; J3480; J7120; Q9967

== ENCOUNTER → 2024-08-20 16:46 | Outpatient (BNV) | payer OTHER, SELFPAY | PROVIDERS: Emergency Provider Emergency Medicine; PCP Family Medicine; Visit Provider Internal Medicine | DX: R07.9 Chest pain, unspecified (principal); I45.19 Other right bundle-branch block; R94.31 Abnormal electrocardiogram [ECG] [EKG] | CPT/HCPCS: 93010 ==

== ENCOUNTER 2024-08-24 12:26 | Outpatient (BNV) | payer OTHER, SELFPAY | END 2024-08-28 14:12 | PROVIDERS: Admitting Provider Student in an Organized Health Care Education/Training Program; Emergency Provider Emergency Medicine Emergency Medical Services; PCP Family Medicine; Visit Provider Student in an Organized Health Care Education/Training Program | DX: K94.23 Gastrostomy malfunction (principal) | CPT/HCPCS: 49452 ==

== ENCOUNTER 2024-08-24 12:26 | Outpatient (BNV) | payer OTHER, SELFPAY | END 2024-09-02 08:15 | PROVIDERS: Admitting Provider Student in an Organized Health Care Education/Training Program; Emergency Provider Emergency Medicine Emergency Medical Services; PCP Family Medicine; Visit Provider Radiology Diagnostic Radiology | DX: Z93.4 Other artificial openings of gastrointestinal tract status (principal) | CPT/HCPCS: 74018 ==

== ENCOUNTER → 2024-08-24 12:26 | Outpatient (BNV) | payer OTHER, SELFPAY | PROVIDERS: Admitting Provider Student in an Organized Health Care Education/Training Program; Emergency Provider Emergency Medicine Emergency Medical Services; PCP Family Medicine; Visit Provider Surgery | DX: T85.598A Other mechanical complication of other gastrointestinal prosthetic devices, implants and grafts, initial encounter (principal) | CPT/HCPCS: 99222 ==

== ENCOUNTER → 2024-08-24 12:26 | Outpatient (BNV) | payer OTHER, SELFPAY | PROVIDERS: Admitting Provider Student in an Organized Health Care Education/Training Program; Emergency Provider Emergency Medicine Emergency Medical Services; PCP Family Medicine; Visit Provider Student in an Organized Health Care Education/Training Program | DX: K92.2 Gastrointestinal hemorrhage, unspecified (principal); E11.9 Type 2 diabetes mellitus without complications; Z79.4 Long term (current) use of insulin | CPT/HCPCS: 99222; 99232 ==